=== PATIENT | female | born 1940 | race Caucasian/White ===

== ENCOUNTER → 2016-08-18 | Outpatient (CLI) | payer OTHER ==
[~2016-08-18] MED LIST: ALEN70TA2 PO; AMLO-110 PO; ASPI81TA28 PO; ATV2 PO; CHOL100010 PO; CLC100 PO; CPR500 PO; CYAN100020 PO; FERR325T5 PO; FURO40TA3 PO; GABA1CAP4 PO; INSUINJ8 SC; IPRASOL34 INH; LEVO100T PO; MRLP17X PO; OFLO0.3S EXT; OMEGCAP2 PO; OXGN; PHEN1CAP PO; ROPI0.25 PO; SIMV20TA5 PO; TOPI100T45 PO; TRAMTAB5 PO
[2016-08-18 13:20] LABS: HEMATOCRIT 36.1 % (37-47); MEAN CORPUSCULAR HEMOGLOBIN 33.9 pg (25-34); MEAN CORPUSCULAR HGB CONC 33.2 g/dl (32-36); MEAN PLATELET VOLUME 10.6 fL (7.4-10.4); PLATELET COUNT 188 K/uL (130-400); RED BLOOD COUNT 3.54 M/uL (4.2-5.4); WHITE BLOOD COUNT 7.94 K/uL (4.8-10.8)
[2016-08-18 13:32] LABS: URINE APPEARANCE CLEAR (CLEAR); URINE BILIRUBIN NEG (NEG); URINE COLOR YELLOW; URINE EPITHELIAL CELL AUTO >30 /lpf (0-5); URINE NITRITE NEG (NEG); URINE PH 5.5 (4.5-7.5); URINE SPECIFIC GRAVITY 1.015 (1.000-1.030); UROBILINOGEN NEG (NEG)
[2016-08-18 13:36] LABS: MANUAL MICROSCOPIC REQUIRED? NO; REVIEW REQ? NO
[2016-08-18 13:56] LABS: BLOOD UREA NITROGEN 21 mg/dl (7-18); BUN/CREATININE RATIO 21.2 (10-20); CALCIUM 9.2 mg/dl (8.5-10.1); CARBON DIOXIDE 31 mmol/L (21-32); CHLORIDE 107 mmol/L (98-107); GLUCOSE 142 mg/dl (70-99); POTASSIUM 4.2 mmol/L (3.5-5.1); SODIUM 145 mmol/L (136-145)
[2016-08-18 13:58] LABS: URINE PROTIEN/CREAT RATIO 0.8 (0-0.2); URINE TOTAL PROTEIN 71.6 mg/dl (0-11.9)
[2016-08-18 14:07] LABS: PHOSPHORUS 2.7 mg/dl (2.5-4.9); THYROID STIMULATING HORMONE 0.725 uIu/ml (0.300-4.500)
== END | disposition home or self-care (01) ==
LOC: C.LAB1850 11:41
PROVIDERS: ATTEND Internal Medicine Nephrology
DX: E03.9 Hypothyroidism, unspecified (principal); I12.9 Hypertensive chronic kidney disease with stage 1 through stage 4 chronic kidney disease, or unspecified chronic kidney disease; N18.3 Chronic kidney disease, stage 3 (moderate); D64.9 Anemia, unspecified; E55.9 Vitamin D deficiency, unspecified

== ENCOUNTER → 2016-10-05 | Outpatient (CLI) | payer OTHER ==
[2016-10-05 12:38] LABS: ESTIMATED AVERAGE GLUCOSE 160 mg/dl; HA1C FLAG Normal (Normal)
== END | disposition home or self-care (01) ==
LOC: C.LAB1850 11:31
PROVIDERS: ATTEND Nurse Practitioner Family
DX: E11.29 Type 2 diabetes mellitus with other diabetic kidney complication (principal)

== ENCOUNTER → 2017-04-07 | Outpatient (CLI) | payer OTHER ==
[2017-04-07 16:57] LABS: HEMATOCRIT 39.6 % (37-47); MEAN CELL VOLUME 103.1 fL (80-100); MEAN CORPUSCULAR HEMOGLOBIN 33.9 pg (25-34); MEAN CORPUSCULAR HGB CONC 32.8 g/dl (32-36); MEAN PLATELET VOLUME 10.7 fL (7.4-10.4); PLATELET COUNT 242 K/uL (130-400); RED BLOOD COUNT 3.84 M/uL (4.2-5.4); WHITE BLOOD COUNT 9.18 K/uL (4.8-10.8)
[2017-04-07 17:12] LABS: BLOOD UREA NITROGEN 25 mg/dl (7-18); CALCIUM 9.5 mg/dl (8.5-10.1); CARBON DIOXIDE 32 mmol/L (21-32); CHLORIDE 104 mmol/L (98-107); GLUCOSE 113 mg/dl (70-99); SODIUM 142 mmol/L (136-145)
[2017-04-07 17:27] LABS: BUN/CREATININE RATIO 20.5 (10-20); CHOLESTEROL 149 mg/dl (0-200); CHOLESTEROL/HDL RATIO 3.6; HDL CHOLESTEROL 41 mg/dl; LDL CHOLESTEROL CALCULATED 65 mg/dl; PHOSPHORUS 3.2 mg/dl (2.5-4.9); TRIGLYCERIDES 215 mg/dl (0-150); VERY LOW DENSITY LIPOPROT CALC 43 mg/dl
[2017-04-07 17:28] LABS: URINE PROTIEN/CREAT RATIO 0.8 (0-0.2); URINE TOTAL PROTEIN 13.3 mg/dl (0-11.9)
[2017-04-07 17:32] LABS: URINE APPEARANCE CLEAR (CLEAR); URINE BILIRUBIN NEG (NEG); URINE COLOR YELLOW; URINE NITRITE NEG (NEG); URINE SPECIFIC GRAVITY 1.015 (1.000-1.030); UROBILINOGEN NEG (NEG)
[2017-04-07 17:33] LABS: MANUAL MICROSCOPIC REQUIRED? NO; REVIEW REQ? NO
== END | disposition home or self-care (01) ==
LOC: C.LABBFT 12:12
PROVIDERS: ATTEND Internal Medicine Nephrology
DX: I10 Essential (primary) hypertension (principal); N18.3 Chronic kidney disease, stage 3 (moderate); D64.9 Anemia, unspecified; N25.81 Secondary hyperparathyroidism of renal origin; E55.9 Vitamin D deficiency, unspecified; E78.5 Hyperlipidemia, unspecified

== ENCOUNTER → 2017-04-15 | Outpatient (CLI) | payer OTHER ==
--- NOTE | 2017-04-15 15:41 | DIAGNOSTIC IMAGING REPORT ---
CHEST 2 VIEWS ROUTINE CLINICAL HISTORY: Chronic obstructive pulmonary disease. COMPARISON STUDY: Chest radiograph January 09, 2015. FINDINGS: Anterior cervical spine fusion is incidentally noted. No pneumothorax or pleural effusion is present. Marked enlargement of the cardiac silhouette is unchanged. There is no evidence of pulmonary edema. Left lower chest wall deformity is chronic. Apparent hazy bibasilar opacities are likely artifactual. There is no consolidation to suggest pneumonia. IMPRESSION: 1. No significant change in appearance of the chest. Stable cardiomegaly without evidence of pulmonary edema. 2. Study compromised by suboptimal penetration related to body habitus but no convincing evidence for pneumonia. Electronically signed by: Jayden Smith M.D. 04/15/2017 3:39 PM Dictated Date/Time: 04/15/2017 3:38 PM
== END | disposition home or self-care (01) ==
LOC: C.RAD1850 14:59
PROVIDERS: ATTEND Internal Medicine Pulmonary Disease
DX: J44.9 Chronic obstructive pulmonary disease, unspecified (principal)

== ENCOUNTER → 2017-08-03 | Outpatient (CLI) | payer OTHER ==
[~2017-08-03] MED LIST changes: -AMLO-110 PO; +AMLO5TAB3 PO; +GABA-1219 PO; -GABA1CAP4 PO; -PHEN1CAP PO; +PHEN30CA PO
[2017-08-03 12:30] LABS: HEMATOCRIT 38.2 % (37-47); HEMOGLOBIN 12.3 g/dL (12.0-16.0); MEAN CELL VOLUME 103.5 fL (80-100); MEAN CORPUSCULAR HEMOGLOBIN 33.3 pg (25-34); MEAN CORPUSCULAR HGB CONC 32.2 g/dl (32-36); MEAN PLATELET VOLUME 10.5 fL (7.4-10.4); PLATELET COUNT 206 K/uL (130-400); RED CELL DISTRIBUTION WIDTH CV 13.9 % (11.5-14.5); RED CELL DISTRIBUTION WIDTH SD 52.9 fL (36.4-46.3)
[2017-08-03 13:14] LABS: HEMOGLOBIN A1C 7.1 % (4.5-5.6)
[2017-08-03 14:46] LABS: ALBUMIN 3.2 gm/dl (3.4-5.0); BLOOD UREA NITROGEN 16 mg/dl (7-18); CALCIUM 8.8 mg/dl (8.5-10.1); CARBON DIOXIDE 33 mmol/L (21-32); CREATININE 1.13 mg/dl (0.60-1.20); GLUCOSE 127 mg/dl (70-99); POTASSIUM 4.2 mmol/L (3.5-5.1); SODIUM 140 mmol/L (136-145)
[2017-08-03 14:58] LABS: ALKALINE PHOSPHATASE 62 U/L (45-117); ALT/SGPT 24 U/L (12-78); AST/SGOT 17 U/L (15-37); CHOLESTEROL 141 mg/dl (0-200); LDL CHOLESTEROL CALCULATED 69 mg/dl
== END | disposition home or self-care (01) ==
LOC: C.LABBFT 09:00
PROVIDERS: ATTEND Internal Medicine
DX: I10 Essential (primary) hypertension (principal); E03.9 Hypothyroidism, unspecified; D64.9 Anemia, unspecified; E11.29 Type 2 diabetes mellitus with other diabetic kidney complication

== ENCOUNTER → 2017-10-04 | Outpatient (CLI) | payer OTHER ==
[~2017-10-04] MED LIST changes: +AMLO-110 PO; -AMLO5TAB3 PO
[2017-10-04 12:24] LABS: HEMATOCRIT 38.9 % (37-47); MEAN CELL VOLUME 101.8 fL (80-100); MEAN CORPUSCULAR HGB CONC 33.4 g/dl (32-36); MEAN PLATELET VOLUME 10.9 fL (7.4-10.4); PLATELET COUNT 203 K/uL (130-400); RED CELL DISTRIBUTION WIDTH CV 13.4 % (11.5-14.5); RED CELL DISTRIBUTION WIDTH SD 50.1 fL (36.4-46.3); WHITE BLOOD COUNT 7.97 K/uL (4.8-10.8)
[2017-10-04 12:47] LABS: HEMOGLOBIN A1C 7.5 % (4.5-5.6)
[2017-10-04 17:51] LABS: ALBUMIN 3.4 gm/dl (3.4-5.0); BLOOD UREA NITROGEN 25 mg/dl (7-18); CALCIUM 9.3 mg/dl (8.5-10.1); CARBON DIOXIDE 33 mmol/L (21-32); CREATININE 1.09 mg/dl (0.60-1.20); GLUCOSE 156 mg/dl (70-99); POTASSIUM 4.2 mmol/L (3.5-5.1); SODIUM 139 mmol/L (136-145)
[2017-10-04 18:01] LABS: PHOSPHORUS 2.5 mg/dl (2.5-4.9)
== END | disposition home or self-care (01) ==
LOC: C.LABBFT 10:39
PROVIDERS: ATTEND Internal Medicine Nephrology
DX: E11.49 Type 2 diabetes mellitus with other diabetic neurological complication (principal); I12.9 Hypertensive chronic kidney disease with stage 1 through stage 4 chronic kidney disease, or unspecified chronic kidney disease; N18.3 Chronic kidney disease, stage 3 (moderate); N25.81 Secondary hyperparathyroidism of renal origin; D64.9 Anemia, unspecified; E55.9 Vitamin D deficiency, unspecified

== ENCOUNTER → 2018-03-17 | Outpatient (CLI) | payer OTHER ==
[~2018-03-17] MED LIST changes: -AMLO-110 PO; +AMLO5TAB3 PO
[2018-03-17 12:30] LABS: HEMATOCRIT 37.3 % (37-47); HEMOGLOBIN 12.4 g/dL (12.0-16.0); MEAN CELL VOLUME 102.8 fL (80-100); MEAN CORPUSCULAR HEMOGLOBIN 34.2 pg (25-34); MEAN CORPUSCULAR HGB CONC 33.2 g/dl (32-36); MEAN PLATELET VOLUME 11.2 fL (7.4-10.4); PLATELET COUNT 208 K/uL (130-400); RED CELL DISTRIBUTION WIDTH CV 13.8 % (11.5-14.5); RED CELL DISTRIBUTION WIDTH SD 52.1 fL (36.4-46.3); WHITE BLOOD COUNT 7.48 K/uL (4.8-10.8)
[2018-03-17 12:42] LABS: ALBUMIN 3.1 gm/dl (3.4-5.0); BLOOD UREA NITROGEN 21 mg/dl (7-18); CALCIUM 8.5 mg/dl (8.5-10.1); CARBON DIOXIDE 30 mmol/L (21-32); CREATININE 1.16 mg/dl (0.60-1.20); GLUCOSE 153 mg/dl (70-99); PHOSPHORUS 2.9 mg/dl (2.5-4.9); SODIUM 141 mmol/L (136-145)
== END | disposition home or self-care (01) ==
LOC: C.LABBFT 09:59
PROVIDERS: ATTEND Internal Medicine Nephrology
DX: I12.9 Hypertensive chronic kidney disease with stage 1 through stage 4 chronic kidney disease, or unspecified chronic kidney disease (principal); N18.3 Chronic kidney disease, stage 3 (moderate); N25.81 Secondary hyperparathyroidism of renal origin; D64.9 Anemia, unspecified; E11.21 Type 2 diabetes mellitus with diabetic nephropathy; E55.9 Vitamin D deficiency, unspecified

== ENCOUNTER 2023-09-07 11:42 | Inpatient (IN) ==
[2023-09-07 12:55] LABS: Alanine Aminotransferase 9 U/L (7-52); Albumin Globulin Ratio 1.1 (0.9-2); Albumin Level 3.4 gm/dl (3.4-5.0); Alkaline Phosphatase 56 U/L (34-104); Anion Gap 4 (3-11); Aspartate Aminotransferase 11 U/L (13-39); BUN Creatinine Ratio 26.3 (10-20); Bilirubin,Total 0.5 mg/dl (0.2-1.0); Blood Urea Nitrogen 50 mg/dl (6-23); Calcium 8.6 mg/dl (8.6-10.3); Carbon Dioxide 36 mmol/L (21-32); Chloride 103 mmol/L (98-107); Est GFR (Non-African American) 24.1 ml/min; Globulin 3.1 gm/dl (2.5-4.0); Glucose 124 mg/dl (70-99(Fasting)); Lipase 17 U/L (11-82); Potassium 4.9 mmol/L (3.5-5.1); Sodium 143 mmol/L (136-145); Total Protein 6.5 gm/dl (6.0-8.3)
[2023-09-07 12:59] LABS: Hematocrit (blood only) 23.6 % (37.0-47.0); Hemoglobin 7.4 g/dl (12.0-16.0); Mean Corpuscular Hemoglobin 36.1 pg (25.0-34.0); Mean Corpuscular Hgb Conc 31.4 g/dL (32.0-36.0); Mean Corpuscular Volume 115.1 fL (80.0-100.0); Mean Platelet Volume 10.6 fL (9.4-12.4); Nucleated RBC # (auto) 0.03 K/uL (0.00-0.12); Nucleated RBC % (auto) 1.6 %; Platelet Count 86 K/uL (130-400); RDW Coefficient of Variation 15.3 % (11.5-14.5); RDW Standard Deviation 65.1 fL (36.4-46.3); Red Blood Count 2.05 M/uL (4.20-5.40); White Blood Count 1.91 K/ul (4.8-10.8)
[2023-09-07 14:01] LABS: ALC (manual) 0.74 K/uL (1.2-3.4); ANC (manual) 0.92 K/uL (1.4-6.5); Blast # (manual) 0.04 K/uL (0-0); Blast Cells % (manual) 2 %; Lymphocytes # (manual) 0.74 K/uL (1.2-3.4); Lymphocytes % (manual) 39 %; Macrocytosis Present; Monocytes # (manual) 0.21 K/uL (0.11-0.59); Monocytes % (manual) 11 %; Neutrophils # (manual) 0.92 K/uL (1.40-6.50); Neutrophils % (manual) 48 %; Polychromasia 1+; Tear Drop Cells 1+
--- NOTE | 2023-09-07 14:16 | Emergency Department Note ---
History of Present Illness General Chief complaint: Flank Pain Stated complaint: PAIN IN BOTH SIDES Time Seen by Provider: 09/07/23 14:00 History of Present Illness Maximum Pain Intensity: 6 83-year-old female presents emergency department with a 1 day history of bilateral upper abdominal pain. Patient of note was seen her primary care physician's office yesterday and refused to get blood work. According to daughters at bedside the patient is in denial of her health issues. Patient reportedly had been bleeding rectally over the past 2 weeks. Patient denies any vomiting of blood. Patient is on Eliquis she is also using oxygen [id number]. Patient denies any chest pain denies shortness of breath. Patient denies nausea vomiting diarrhea. There are no other complaints except for abdominal pain and rectal bleeding Home Medications Medication Instructions Recorded Confirmed Type Oxygen Home #1 ea 03/05/19 09/05/23 History lancets 30 gauge (OneTouch Delica #25 ea 03/05/19 09/05/23 History Lancets) CPAP Machine #1 ea 11/20/19 09/05/23 Rx blood sugar diagnostic (SwiftypeTouch #100 ea 05/06/22 09/05/23 Rx Verio test strips) blood-glucose meter (OneTouch #1 ea 05/06/22 09/05/23 Rx Verio Meter) insulin glargine 100 unit/mL (3 10 unit (0.1 mL) subcut QPM 90 08/11/22 09/07/23 Rx mL) subcutaneous pen (Lantus days #9 mL Solostar U-100 Insulin) apixaban 2.5 mg tablet (Eliquis) 2.5 mg PO BID #60 tabs 11/24/22 09/07/23 Rx levothyroxine 88 mcg tablet 88 mcg PO 6XWK #90 tabs 11/24/22 09/07/23 Rx pramipexole 0.5 mg tablet 0.5 mg PO .COMPLEX 30 days #270 01/12/23 09/07/23 Rx tabs ipratropium 0.5 mg-albuterol 3 mg 3 ml inhalation Q4H PRN wheezing 03/18/23 09/07/23 Rx (2.5 mg base)/3 mL nebulization #540 mL soln gabapentin 300 mg capsule 300 mg PO HS #180 caps 04/22/23 09/07/23 Rx metoprolol succinate 200 mg 100 mg (1/2 x 200 mg) PO DAILY #30 04/22/23 09/07/23 Rx tablet,extended release 24 hr tabs furosemide 40 mg tablet (Lasix) 40 mg PO DAILY #135 tabs 05/06/23 09/07/23 Rx lisinopril 5 mg tablet (Zestril) 5 mg PO DAILY #90 tabs 05/09/23 09/07/23 Rx acetaminophen 500 mg oral powder 500 mg PO Q6H PRN PAIN/FEVER 06/20/23 09/07/23 History packet (Tylenol Extra Strength) metoprolol succinate 50 mg 50 mg PO DAILY #90 tabs 06/20/23 09/07/23 Rx tablet,extended release 24 hr lorazepam 1 mg tablet 1 mg PO HS PRN Sleep #30 tabs 06/28/23 09/07/23 Rx pen needle, diabetic 31 gauge x #100 ea 07/06/23 09/05/23 Rx 5/16" (Lite Touch Insulin Pen [place]) albuterol sulfate 90 mcg/actuation 2 puff inhalation Q6H PRN 08/04/23 09/07/23 Rx aerosol inhaler shortness of breath or wheezing #8.5 grams umeclidinium 62.5 mcg-vilanterol 1 inh inhalation DAILY #60 ea 08/22/23 09/07/23 Rx 25 mcg/actuation powdr for inhalation (Anoro Ellipta) Allergies Allergy/AdvReac Type Severity Reaction Status Date / Time sacubitril [From Entresto] AdvReac Severe hyperkalemi Verified 09/07/23 15:12 a valsartan [From Entresto] AdvReac Severe hyperkalemi Verified 09/07/23 15:12 a Past Med/Surg History Medical History Morbid obesity with BMI of 40.0-44.9, adult Gout Mild cognitive impairment Atrial fibrillation Chronic systolic CHF (congestive heart failure) Cardiomyopathy Anemia Anxiety Chronic kidney disease, stage 3 (moderate) Chronic obstructive pulmonary disease Depression Diabetic peripheral neuropathy Diabetic retinopathy Dyslipidemia Generalized osteoarthritis of multiple sites Hypertension Hypothyroidism Obesity hypoventilation syndrome Obstructive sleep apnea of adult Osteoporosis Pulmonary hypertension Restless legs syndrome Restrictive lung disease Secondary hyperparathyroidism Tinnitus Type 2 diabetes mellitus Vitamin B12 deficiency Vitamin D deficiency Surgical History H/O cervical spine surgery Late H/O hysterectomy with oophorectomy TABHSO secondary heavy bleeding. Family History Father Alzheimer disease Sister Brain tumor Mother Myocardial infarction AAA (abdominal aortic aneurysm) Brother Myocardial infarction T2DM (type 2 diabetes mellitus) Denies family history of Ovarian cancer Prostate cancer Breast cancer Colorectal cancer Social History Smoking Status: Former smoker Tobacco Type: Cigarettes Age Started Using Tobacco: 14; Age Quit Using Tobacco: 59; packs per day: 0.5; Cigarettes Per Day: 10; Second Hand Exposure: Yes (her family smokes around her ); Do You Dip or Chew Tobacco: No; Hx Alcohol Use: No Hx Substance Use: No Preferred Language: Turkish Communication Ability: Effective Visual Impairment: No Limitations Hearing Ability: Normal Grey Inspector Required: No Beliefs That Will Affect Care: None marital status: Current Living Situation: Spouse current occupational status: retired current occupation: she worked in housekeeping at the hospital Feels Safe at Home: Yes Childhood Exposure to Second-Hand Smoke: Yes Diet: regular Dental Care, Regularly: No Physical Activity Frequency: Does not Exercise Seatbelt Use: never Sunscreen Use: No Assistive Devices: Oxygen - Continuous ([facility]) and Walker Review of Systems A total of 10 systems reviewed and were otherwise negative Gastrointestinal: + abdominal pain and + blood in stools Physical Exam Vital Signs Vital Signs - 24 hr 09/07/23 11:51 09/07/23 14:54 09/07/23 15:49 Temperature 36.5 C Temperature Source Temporal Artery Scan Pulse Rate 90 79 Pulse Rate [Left Finger] 74 Respiratory Rate 18 22 Blood Pressure 117/48 L Blood Pressure [Left Arm] 101/50 L Blood Pressure Mean 71 Blood Pressure Mean [Left Arm] 67 Blood Pressure Position [Left Arm] Sitting Pulse Oximetry 94 100 Oxygen Delivery Method Nasal Cannula Nasal Cannula Oxygen Flow Rate 2.5 3 Sepsis New/Unexplained Change in Mental Status No Sepsis Action Taken by Nursing No Action Required 09/07/23 16:00 Temperature Temperature Source Pulse Rate Pulse Rate [Left Finger] 84 Respiratory Rate 18 Blood Pressure Blood Pressure [Left Arm] 114/77 Blood Pressure Mean Blood Pressure Mean [Left Arm] 89 Blood Pressure Position [Left Arm] Pulse Oximetry 96 Oxygen Delivery Method Room Air Oxygen Flow Rate Sepsis New/Unexplained Change in Mental Status Sepsis Action Taken by Nursing GENERAL: Patient is awake alert in no acute distress patient is resting comfortably and showing no signs of anxiety EYES: The conjunctivae are clear. The pupils are round and reactive. EARS, NOSE, MOUTH AND THROAT: The nose is without any evidence of any deformity. Mucous membranes are moist. Tongue is midline. NECK: The neck is nontender and supple. RESPIRATORY: Normal respiratory effort; rhonchi bilaterally CARDIOVASCULAR: Irregularly irregular rate and rhythm noted there no murmurs rubs or gallops normal S1 normal S2. GASTROINTESTINAL: The abdomen is soft. Abdomen is nontender. No rebound rigidity or guarding RECTAL; rectal exam is heme-negative brown stool BACK: No midline tenderness or or step-off noted range of motion in flexion extension as well as rotation no signs of muscle spasm noted MUSCULOSKELETAL/EXTREMITIES: There is no evidence of gross deformity full range of motion is noted in the hips and shoulders. SKIN: There is no obvious evidence of any rash. There are no petechiae, pallor or cyanosis noted. There is a bandaged right ankle wound NEUROLOGIC: Patient is awake alert and oriented x2 strength is symmetric Course Reevaluation(s) Reevaluation #1: Patient is resting in no distress on my repeat exam. I discussed evaluation with the patient the patient's daughter who is at bedside Time: 15:29 Reevaluation #2: Patient has no current rectal bleeding on my evaluation, patient is hemodynamically stable Time: 15:30 Consultations Consultation #1: Case was discussed with the [facility] hospitalist for admission Time: 15:29 Administered Medications Ceftriaxone Sodium 2,000 mg/ (Dextrose) 50 mls @ 100 mls/hr IV Q24H [facility]; Protocol Stop: 09/17/23 15:29 Last Infusion: 09/07/23 16:22 Dose: Infused Documented By: Admin: 09/07/23 15:51 Dose: 100 mls/hr Documented By: MISAEL Discontinued Medications Metronidazole (Flagyl) 500 mg in 100 mls @ 100 mls/hr IV NOW [facility]; Protocol Stop: 09/07/23 16:31 Last Infusion: 09/07/23 16:51 Dose: Infused Documented By: Admin: 02/07/24 15:50 Dose: 100 mls/hr Documented By: MISAEL Medical Decision Making Medical Records Attestation: I reviewed the patient's medical records. Home Medications Current Medication List: was personally reviewed by Laboratory Data Attestation: I reviewed the patient's lab results. Labs interpreted by me patient is pancytopenic, patient has an elevated creatinine 09/07/23 12:10 09/07/23 12:10 Lab Results 09/07/23 09/07/23 09/07/23 Range/Units 12:10 15:13 15:16 WBC 1.91 L (4.8-10.8) K/ul RBC 2.05 L (4.20-5.40) M/uL Hgb 7.4 L (12.0-16.0) g/dl Hct 23.6 L (37.0-47.0) % MCV 115.1 H (80.0-100.0) fL MCH 36.1 H (25.0-34.0) pg MCHC 31.4 L (32.0-36.0) g/dL RDW Std Deviation 65.1 H (36.4-46.3) fL RDW Coeff of Vanessa 15.3 H (11.5-14.5) % Plt Count 86 L (130-400) K/uL MPV 10.6 (9.4-12.4) fL Reticulocyte % (Auto) (0.50-2.00) % Reticulocyte # (0.020-0.100) 10^6/uL Absolute Nucleated RBC 0.03 (0.00-0.12) K/uL Nucleated RBC % (auto) 1.6 % Neutrophils % (Manual) 48 % Lymphocytes % (Manual) 39 % Monocytes % (Manual) 11 % Blast Cells % (Manual) 2 % Neutrophils # (Manual) 0.92 L (1.40-6.50) K/uL Total Absolute Neuts 0.92 L* (1.4-6.5) K/uL Lymphocytes # (Manual) 0.74 L (1.2-3.4) K/uL Total Abs Lymphocytes 0.74 L (1.2-3.4) K/uL Monocytes # (Manual) 0.21 (0.11-0.59) K/uL Blast Cells # (Man) 0.04 H (0-0) K/uL Blood Smear Review Polychromasia 1+ Macrocytosis Present Tear Drop Cells 1+ Peripher Smr Path Cons ESR (0-30) mm/hr PT Cancelled 11.9 INR Cancelled 1.1 APTT 24 (21-31) Seconds PTT Ratio 0.9 Sodium 143 (136-145) mmol/L Potassium 4.9 (3.5-5.1) mmol/L Chloride 103 (98-107) mmol/L Carbon Dioxide 36 H (21-32) mmol/L Anion Gap 4 (3-11) BUN 50 H (6-23) mg/dl Creatinine 1.90 H (0.6-1.2) mg/dl Est Cr Clr Drug Dosing Not Reportable Est GFR ( Amer) 28.0 ml/min Est GFR (Non-Af Amer) 24.1 ml/min BUN/Creatinine Ratio 26.3 H (10-20) Glucose 124 H (70-99(Fasting)) mg/dl Lactate 0.6 (0.4-2.0) mmol/L Calcium 8.6 (8.6-10.3) mg/dl Magnesium (1.7-2.4) mg/dl Iron (35-150) mcg/dl TIBC (250-450) mcg/dl Unsaturated IBC (155-355) mcg/dl Transferrin % Sat (15-50) % Total Bilirubin 0.5 (0.2-1.0) mg/dl AST 11 L (13-39) U/L ALT 9 (7-52) U/L Alkaline Phosphatase 56 (34-104) U/L Troponin I High Sens (0-14) pg/ml C-Reactive Protein (0-0.5) mg/dl B-Natriuretic Peptide (0-100) pg/ml Total Protein 6.5 (6.0-8.3) gm/dl Albumin 3.4 (3.4-5.0) gm/dl Globulin 3.1 (2.5-4.0) gm/dl Albumin/Globulin Ratio 1.1 (0.9-2) Lipase 17 (11-82) U/L Vitamin B12 (180-914) pg/ml Folate (>5.38) ng/ml Procalcitonin < 0.05 (0-0.5) ng/ml TSH (0.300-4.500) uIu/ml Blood Type O Negative Antibody Screen NEGATIVE 09/07/23 09/07/23 09/07/23 Range/Units 15:23 15:25 16:03 WBC (4.8-10.8) K/ul RBC (4.20-5.40) M/uL Hgb (12.0-16.0) g/dl Hct (37.0-47.0) % MCV (80.0-100.0) fL MCH (25.0-34.0) pg MCHC (32.0-36.0) g/dL RDW Std Deviation (36.4-46.3) fL RDW Coeff of Vanessa (11.5-14.5) % Plt Count (130-400) K/uL MPV (9.4-12.4) fL Reticulocyte % (Auto) 1.72 (0.50-2.00) % Reticulocyte # 0.040 (0.020-0.100) 10^6/uL Absolute Nucleated RBC (0.00-0.12) K/uL Nucleated RBC % (auto) % Neutrophils % (Manual) % Lymphocytes % (Manual) % Monocytes % (Manual) % Blast Cells % (Manual) % Neutrophils # (Manual) (1.40-6.50) K/uL Total Absolute Neuts (1.4-6.5) K/uL Lymphocytes # (Manual) (1.2-3.4) K/uL Total Abs Lymphocytes (1.2-3.4) K/uL Monocytes # (Manual) (0.11-0.59) K/uL Blast Cells # (Man) (0-0) K/uL Blood Smear Review Polychromasia Macrocytosis Tear Drop Cells Peripher Smr Path Cons Cancelled ESR 35 H (0-30) mm/hr PT INR APTT (21-31) Seconds PTT Ratio Sodium (136-145) mmol/L Potassium (3.5-5.1) mmol/L Chloride (98-107) mmol/L Carbon Dioxide (21-32) mmol/L Anion Gap (3-11) BUN (6-23) mg/dl Creatinine (0.6-1.2) mg/dl Est Cr Clr Drug Dosing Est GFR ( Amer) ml/min Est GFR (Non-Af Amer) ml/min BUN/Creatinine Ratio (10-20) Glucose (70-99(Fasting)) mg/dl Lactate (0.4-2.0) mmol/L Calcium (8.6-10.3) mg/dl Magnesium 2.3 (1.7-2.4) mg/dl Iron 51 (35-150) mcg/dl TIBC 221 L (250-450) mcg/dl Unsaturated IBC 170 (155-355) mcg/dl Transferrin % Sat 23 (15-50) % Total Bilirubin (0.2-1.0) mg/dl AST (13-39) U/L ALT (7-52) U/L Alkaline Phosphatase (34-104) U/L Troponin I High Sens 12.6 (0-14) pg/ml C-Reactive Protein 6.37 H (0-0.5) mg/dl B-Natriuretic Peptide 566 H (0-100) pg/ml Total Protein (6.0-8.3) gm/dl Albumin (3.4-5.0) gm/dl Globulin (2.5-4.0) gm/dl Albumin/Globulin Ratio (0.9-2) Lipase (11-82) U/L Vitamin B12 217 (180-914) pg/ml Folate 14.97 (>5.38) ng/ml Procalcitonin (0-0.5) ng/ml TSH 3.461 (0.300-4.500) uIu/ml Blood Type Antibody Screen Imaging Data Attestation: I personally reviewed and interpreted this imaging study as follows: My Impression: Chest x-ray interpreted by me mild cardiomegaly questionable left lower lobe effusion Radiologist's Impression: Abdomen/Pelvis CT 09/07/23 13:[address] WITHOUT CONTRAST CT DOSE: 1240.29 mGy.cm HISTORY: Acute lower abdominal pain with anemia Lower abd pain, anemia, Elevated Creat TECHNIQUE: Multiaxial CT images of the abdomen and pelvis were performed without contrast. A dose lowering technique was utilized adhering to the principles of ALARA. COMPARISON STUDY: 01/09/2015 FINDINGS: Marked cardiomegaly. Pericardial effusion measures up to 2.4 cm, increased in size from prior. Extensive coronary artery calcifications. Small right and trace left pleural effusions. Bibasilar opacities favor atelectasis/scarring. Limited study secondary to respiratory motion, approximately positioning and lack of contrast. Unremarkable spleen, pancreas and right adrenal gland. 1.8 cm left adrenal adenoma. Mildly contracted gallbladder with stone present within the gallbladder neck. Mild pericholecystic stranding. No biliary ductal dilation. Atrophy of the right greater left kidneys with bilateral cortical thinning. 5 mm calcification of the inferior pole right kidney. No ureteral calculi or hydronephrosis identified. Unremarkable urinary bladder with mild wall thickening. Hysterectomy with pelvic floor relaxation. Cystocele and rectocele. Atherosclerosis of aorta. No lymphadenopathy. No bowel obstruction. There is mild nonspecific rectal wall thickening with perirectal stranding. Stents of colonic diverticulosis. No acute diverticulitis. Normal appendix. Small fat filled umbilical hernia. There is a large pannus. Degenerative changes of the spine, pelvis and hips. Multilevel central canal stenosis. IMPRESSION: 1. No bowel obstruction or pneumoperitoneum. 2. There is mild nonspecific rectal wall thickening with perirectal stranding. Correlate clinically to exclude a mild nonspecific proctitis. 3. Cholelithiasis without definite CT evidence of acute cholecystitis. 4. 4 mm calcification of the right kidney. No hydronephrosis. 5. Cardiomegaly with moderate-sized pericardial effusion. Trace left and small right pleural effusions. 6. Additional findings as above. ACT 112: Negative or not required by law. The above report was generated using voice recognition software. It may contain grammatical, syntax or spelling errors. Electronically signed by: Joe Delgadillo M.D. 09/07/2023 2:42 PM Chest X-Ray 09/07/23 14:12 XR chest 1V portable CLINICAL HISTORY: GI bleed. COMPARISON STUDY: Chest radiograph April 15, 2023. Chest CT April 18, 2023. FINDINGS: Enlargement of the cardiac silhouette is similar to prior exam. There is no pneumothorax. Small right and trace left pleural effusions are present. There is no evidence for pulmonary edema. There is no definite consolidation to suggest pneumonia. Right basilar opacity favors atelectasis. Postoperative findings within the cervical spine are incidentally noted. IMPRESSION: 1. Stable enlargement of the cardiac silhouette. No evidence for pulmonary edema. 2. Small right and trace left pleural effusions. Right basilar opacity favors atelectasis. ACT 112: Negative or not required by law. Electronically signed by: Jayden Smith M.D. 09/07/2023 2:59 PM ECG Data Attestation: I personally reviewed and interpreted this ECG as follows: MDM Narrative Medical decision making differential diagnosis includes GI bleed diverticular bleed metabolic derangement dehydration electrolyte abnormality sepsis occult cancer Plan is to check labs, CT abdomen pelvis, type and screen, labs were started and the provider in triage process prior to my evaluation of the patient Family at bedside, the patient's daughter has provided me history of her being in denial of her medical conditions. Reportedly her is currently in our hospital and is being transferred to a long-term care facility Patient has pancytopenia patient's CT of the abdomen pelvis showed a moderate pericardial effusion. Patient is on oxygen but is in no respiratory distress. Patient may have an occult cancer. Patient has no current evidence of sepsis. The case was discussed with the family at bedside as well as the [facility] hospitalist for admission Impression & Plan Pancytopenia, Pericardial effusion, Abdominal pain, Pleural effusion Discharge Plan Visit Data Chief Complaint: Flank Pain Stated Complaint: PAIN IN BOTH SIDES ED Provider: Walker Escalante Discharge Problem: Pancytopenia, Pericardial effusion, Abdominal pain, Pleural effusion Patient Disposition: Admitted As Inpatient Forms Stand Alone Forms: My [facility] Prescriptions Prescriptions: No Action (DME) CPAP Machine Mis See Rx Instructions .ROUTE .MEDSUPPLY Qty: 1 0RF Rx Instructions: CPAP 7CM. HEATED HUMIDITY. CPAP SUPPLIES NEEDED. VALERIO 99. [facility] (DME) OneTouch Verio test strips Strip See Rx Instructions .ROUTE .MEDSUPPLY Qty: 100 2RF Rx Instructions: Test 2 times daily and as needed (DME) blood-glucose meter [OneTouch Verio Meter] Misc See Rx Instructions .ROUTE .MEDSUPPLY Qty: 1 0RF Rx Instructions: Test blood sugars 2 times daily insulin glargine [Lantus Solostar U-100 Insulin] 100 unit/mL (3 mL) insulin pen 10 unit subcut QPM 90 Days Qty: 9 3RF Eliquis 2.5 mg tablet 2.5 mg PO BID Qty: 60 11RF levothyroxine 88 mcg tablet 88 mcg PO 6XWK Qty: 90 3RF Rx Instructions: TAKE ONE TABLET BY MOUTH EVERY DAY EXCEPT TUESDAY. pramipexole 0.5 mg tablet 0.5 mg PO .COMPLEX 30 Days Qty: 270 3RF Rx Instructions: 0.5 mg PO TAKE 1 TAB IN THE AFTERNOON AND 2 TABS 2 HOURS BEFORE BEDTIME; ipratropium-albuterol 0.5 mg-3 mg(2.5 mg base)/3 mL solution for nebulization 3 ml inhalation Q4H PRN (Reason: wheezing) Qty: 540 0RF metoprolol succinate 200 mg tablet extended release 24 hr 100 mg PO DAILY Qty: 30 11RF Rx Instructions: TOTAL DOSE 150 MG--TAKES WITH 50 MG TAB. lisinopril [Zestril] 5 mg tablet 5 mg PO DAILY Qty: 90 1RF lorazepam 1 mg tablet 1 mg PO HS PRN (Reason: Sleep) Qty: 30 1RF Rx Instructions: TAKE 1 TABLET BY MOUTH AT BEDTIME NEEDED SLEEP (DME) pen needle, diabetic [Lite Touch Insulin Pen [place]] 31 gauge x 5/16" needle See Dose Instructions .ROUTE .MEDSUPPLY Qty: 100 11RF Rx Instructions: for use with Humulin pen 2 times a day Anoro Ellipta 62.5-25 mcg/actuation blister with device 1 inh inhalation DAILY Qty: 60 5RF (DME) Oxygen Home Liters Per Minute See Dose Instructions .ROUTE .MEDSUPPLY Qty: 1 Rx Instructions: 2 LPM at rest and 3 LPM with ambulation and sleep (DME) lancets [OneTouch Delica Lancets] 30 gauge misc See Dose Instructions .ROUTE .MEDSUPPLY Qty: 25 Rx Instructions: Test 3 times per day Tylenol Extra Strength 500 mg powder in packet 500 mg PO Q6H PRN (Reason: PAIN/FEVER) metoprolol succinate 50 mg tablet extended release 24 hr 50 mg PO DAILY Qty: 90 3RF Rx Instructions: (Take with 100 mg for a total of 150 mg daily) albuterol sulfate 90 mcg/actuation HFA aerosol inhaler 2 puff inhalation Q6H PRN (Reason: shortness of breath or wheezing) Qty: 8.5 5RF furosemide [Lasix] 40 mg tablet 40 mg PO DAILY Qty: 135 3RF gabapentin 300 mg capsule 300 mg PO HS Qty: 180 3RF Referrals Referrals: Eboni Smith MD [Primary Care Provider] -
--- NOTE | 2023-09-07 14:43 | CT Scan Report ---
ABDOMEN AND PELVIS CT WITHOUT CONTRAST CT DOSE: 1240.29 mGy.cm HISTORY: Acute lower abdominal pain with anemia Lower abd pain, anemia, Elevated Creat TECHNIQUE: Multiaxial CT images of the abdomen and pelvis were performed without contrast. A dose lo wering technique was utilized adhering to the principles of ALARA. COMPARISON STUDY: 01/09/2015 FINDINGS: Marked cardiomegaly. Pericardial effusion measures up to 2.4 cm, increased in size from barbara or. Extensive coronary artery calcifications. Small right and trace left pleural effusions. Bibasilar opacities favor atelectasis/scarring. Limited study secondary to respiratory motion, approximately p ositioning and lack of contrast. Unremarkable spleen, pancreas and right adrenal gland. 1.8 cm left adrenal adenoma. Mildly contracted gallbladder with stone present within the gallbladder neck. Mild pericholecystic stranding. No bilia ry ductal dilation. Atrophy of the right greater left kidneys with bilateral cortical thinning. 5 mm calcification of the inferior pole right kidney. No ureteral calculi or hydronephrosis identified. Un remarkable urinary bladder with mild wall thickening. Hysterectomy with pelvic floor relaxation. Cyst ocele and rectocele. Atherosclerosis of aorta. No lymphadenopathy. No bowel obstruction. There is mild nonspecific rectal wall thickening with perirectal stranding. Ross nts of colonic diverticulosis. No acute diverticulitis. Normal appendix. Small fat filled umbilical h ernia. There is a large pannus. Degenerative changes of the spine, pelvis and hips. Multilevel centra l canal stenosis. IMPRESSION: 1. No bowel obstruction or pneumoperitoneum. 2. There is mild nonspecific rectal wall thickening with perirectal stranding. Correlate clinically t o exclude a mild nonspecific proctitis. 3. Cholelithiasis without definite CT evidence of acute cholecystitis. 4. 4 mm calcification of the right kidney. No hydronephrosis. 5. Cardiomegaly with moderate-sized pericardial effusion. Trace left and small right pleural effusion s. 6. Additional findings as above. ACT 112: Negative or not required by law. The above report was generated using voice recognition software. It may contain grammatical, syntax o r spelling errors. Electronically signed by: Joe Delgadillo M.D. 09/07/2023 2:42 PM
--- NOTE | 2023-09-07 15:00 | XRay Report ---
XR chest 1V portable CLINICAL HISTORY: GI bleed. COMPARISON STUDY: Chest radiograph April 15, 2023. Chest CT April 18, 2023. FINDINGS: Enlargement of the cardiac silhouette is similar to prior exam. There is no pneumothorax. S mall right and trace left pleural effusions are present. There is no evidence for pulmonary edema. Th ere is no definite consolidation to suggest pneumonia. Right basilar opacity favors atelectasis. Post operative findings within the cervical spine are incidentally noted. IMPRESSION: 1. Stable enlargement of the cardiac silhouette. No evidence for pulmonary edema. 2. Small right and trace left pleural effusions. Right basilar opacity favors atelectasis. ACT 112: Negative or not required by law. Electronically signed by: Jayden Smith M.D. 09/07/2023 2:59 PM
[2023-09-07] MEDS: metroNIDAZOLE 500 MG/100 ML BAG IV STA (15:50)
[2023-09-07] MEDS: cefTRIAXone SODIUM 2,000 MG in DEXTROSE 5 % MINI-B 50 ML IV SCH (15:51)
--- NOTE | 2023-09-07 15:57 | History & Physical Report ---
Date of Service September 07, 2023 Assessment & Plan (1) Proctitis: Plan: Suspect this is the cause of her abdominal pain Due to concurrent pancytopenia will cover for infective etiology with ceftriaxone and metronidazole Stool PCR/c. diff PCR/CRP/ESR/procalcitonin/blood cultures Consult gastroenterology (2) Pancytopenia: Plan: Unclear cause on admission - suspect from anemia from acute blood loss from rectal bleeding although this does not adequately explain full pancytopenia B12 (notably < 400 in April), folate, ferritin, iron studies, retic count, peripheral smear Consult hematology H&H q6h, Transfuse < 7 (3) Rectal bleeding: Plan: FOB negaitve with brown stool in the ER. Occurring intermittently ?related to proctitis. (4) Abdominal pain: Plan: ?related to proctitis. No alterative cause found on CT Continue to monitor (5) Pericardial effusion: Plan: Known diagnosis. Repeat TTE limited order to check for stability. (6) Pleural effusion: Plan: Suspected from CHF Euvolemic Continue usual Lasix dosing (7) Permanent atrial fibrillation: Plan: Hold apixaban due to anemia with recent rectal bleeding Continue metoprolol for rate control (8) Obstructive sleep apnea of adult: Plan: CPAP HS (9) Type 2 diabetes mellitus: Plan: HbA1C 6.8 in April, will repeat with a.m. labs Home medications Lantus 10 units HS While NPO will hold basal dosing for correction factor NovoLog alone and add basal dosing back as needed (10) Restless legs syndrome: Plan: Continue pramipexole (11) Chronic systolic CHF (congestive heart failure): Plan: Euvolemic Continue routine Lasix dosing (12) Chronic respiratory failure with hypoxia: Plan: Baseline 2-3 LPM O2 Aim O2 > 90% (13) Acute blood loss anemia: Plan VTE Prophylaxis - deferred due to anemia, rectal bleeding Diet - clear liquid, T2DM, low Na, NPO after midnight pending GI consult Disposition - admit ot med/tele Admission and Anticipated Discharge Date Admission Date: Sep 07, 2023 History of Present Illness Chief Complaint: Abdominal pain Primary Care Provider: Eboni Smith MD Valeri Davis is an 83-year-old female who presents to the ER back and abdominal pain and rectal bleeding. Patient was seen with her daughter Yaritza at bedside. She was seen by her PCP 2 days ago for the rectal bleeding but declined any further workup. She takes apixaban for atrial fibrillation which she last took this morning (around 9am). History is somewhat difficult regarding timelines for the patient and her daughter at bedside notes she tends to underplay symptoms which have likely been going on for much longer. The patient thinks the rectal bleeding started around 5 days ago and happening intermittently. She denies any diarrhea or melena although her daughter notes she may have had a couple of episodes of diarrhea earlier this week. No nausea, vomiting or constipation. Abdominal back/abdominal pain which she thinks started yesterday but became much more severe today although also noted on her PCP note from 2 days ago. Worse on movement and with bowel movements. She feels pain on defecation. Having significant tenesmus without bowel movements. Abdominal/back pain is generalized (although noted on exam much worse on right compared to left side). No personal or family history of IBD, colon cancer. Personal history of diverticulitis. She has chronic hypoxic respiratory failure usually 3LPM O2 due to underlying COPD/asthma. In the ER she was noted to be pancytopenic. She denies any family or personal history of blood cancers. B12 notably < 400 in April 2023, she is not on supplementation for this. She denies any chest pain, worsening shortness of br eath or dizziness. She does note generalized fatigue and shortness of breath however she does not think this is worse than her baseline. She denies any other blood loss such as hematemesis, hematuria, hemoptysis or epistaxis. Allergies Allergy/AdvReac Type Severity Reaction Status Date / Time sacubitril [From Entresto] AdvReac Severe hyperkalemi Verified 09/07/23 15:12 a valsartan [From Entresto] AdvReac Severe hyperkalemi Verified 09/07/23 15:12 a Home Medications Medication Instructions Recorded Confirmed Type Oxygen Home #1 ea 03/05/19 09/05/23 History lancets 30 gauge (OBX BoatworksTouch Delica #25 ea 03/05/19 09/05/23 History Lancets) CPAP Machine #1 ea 11/20/19 09/05/23 Rx blood sugar diagnostic (Vacatia #100 ea 05/06/22 09/05/23 Rx Verio test strips) blood-glucose meter (Vacatia #1 ea 05/06/22 09/05/23 Rx Verio Meter) insulin glargine 100 unit/mL (3 10 unit (0.1 mL) subcut QPM 90 08/11/22 09/07/23 Rx mL) subcutaneous pen (Lant days #9 mL Solostar U-100 Insulin) apixaban 2.5 mg tablet (Eliquis) 2.5 mg PO BID #60 tabs 11/24/22 09/07/23 Rx levothyroxine 88 mcg tablet 88 mcg PO 6XWK #90 tabs 11/24/22 09/07/23 Rx pramipexole 0.5 mg tablet 0.5 mg PO .COMPLEX 30 days #270 01/12/23 09/07/23 Rx tabs ipratropium 0.5 mg-albuterol 3 mg 3 ml inhalation Q4H PRN wheezing 03/18/23 09/07/23 Rx (2.5 mg base)/3 mL nebulization #540 mL soln gabapentin 300 mg capsule 300 mg PO HS #180 caps 04/22/23 09/07/23 Rx metoprolol succinate 200 mg 100 mg (1/2 x 200 mg) PO DAILY #30 04/22/23 09/07/23 Rx tablet,extended release 24 hr tabs furosemide 40 mg tablet (Lasix) 40 mg PO DAILY #135 tabs 05/06/23 09/07/23 Rx lisinopril 5 mg tablet (Zestril) 5 mg PO DAILY #90 tabs 05/09/23 09/07/23 Rx acetaminophen 500 mg oral powder 500 mg PO Q6H PRN PAIN/FEVER 06/20/23 09/07/23 History packet (Tylenol Extra Strength) metoprolol succinate 50 mg 50 mg PO DAILY #90 tabs 06/20/23 09/07/23 Rx tablet,extended release 24 hr lorazepam 1 mg tablet 1 mg PO HS PRN Sleep #30 tabs 06/28/23 09/07/23 Rx pen needle, diabetic 31 gauge x #100 ea 07/06/23 09/05/23 Rx 5/16" (Lite Touch Insulin Pen [place]) albuterol sulfate 90 mcg/actuation 2 puff inhalation Q6H PRN 08/04/23 09/07/23 Rx aerosol inhaler shortness of breath or wheezing #8.5 grams umeclidinium 62.5 mcg-vilanterol 1 inh inhalation DAILY #60 ea 08/22/23 09/07/23 Rx 25 mcg/actuation powdr for inhalation (Anoro Ellipta) Past Med/Surg History Medical History Morbid obesity with BMI of 40.0-44.9, adult Gout Mild cognitive impairment Atrial fibrillation Chronic systolic CHF (congestive heart failure) Cardiomyopathy Anemia Anxiety Chronic kidney disease, stage 3 (moderate) Chronic obstructive pulmonary disease Depression Diabetic peripheral neuropathy Diabetic retinopathy Dyslipidemia Generalized osteoarthritis of multiple sites Hypertension Hypothyroidism Obesity hypoventilation syndrome Obstructive sleep apnea of adult Osteoporosis Pulmonary hypertension Restless legs syndrome Restrictive lung disease Secondary hyperparathyroidism Tinnitus Type 2 diabetes mellitus Vitamin B12 deficiency Vitamin D deficiency Surgical History H/O cervical spine surgery Late 1989' H/O hysterectomy with oophorectomy TABHSO secondary heavy bleeding. Family History Father Alzheimer disease Sister Brain tumor Mother Myocardial infarction AAA (abdominal aortic aneurysm) Brother Myocardial infarction T2DM (type 2 diabetes mellitus) Denies family history of Ovarian cancer Prostate cancer Breast cancer Colorectal cancer Social History Smoking Status: Former smoker Tobacco Type: Cigarettes Age Started Using Tobacco: 14; Age Quit Using Tobacco: 59; packs per day: 0.5; Cigarettes Per Day: 10; Second Hand Exposure: Yes (her family smokes around her ); Do You Dip or Chew Tobacco: No; Hx Alcohol Use: No Hx Substance Use: No Preferred Language: Angolan Communication Ability: Effective Visual Impairment: No Limitations Hearing Ability: Normal Grinder Brake Lining Required: No Beliefs That Will Affect Care: None marital status: Current Living Situation: Alone current occupational status: retired current occupation: she worked in housekeeping at the hospital Feels Safe at Home: Yes Childhood Exposure to Second-Hand Smoke: Yes Diet: regular Dental Care, Regularly: No Physical Activity Frequency: Does not Exercise Seatbelt Use: never Sunscreen Use: No Assistive Devices: Oxygen - Continuous ([facility]) and Walker Review of Systems Review of Systems: All systems reviewed & are unremarkable except as noted in HPI & below Physical Exam Constitutional: WD/WN, vitals as above Eyes: PERRL, conjunctivae normal, anicteric sclerae ENMT: external ear and nose normal, oropharynx normal Respiratory: normal respiratory effort, lungs clear to auscultation Cardiovascular: Rate/Rhythm: regular rate and regular rhythm Heart Sounds: no murmur Vessels: no JVD Extremities: normal capillary refill and + pedal edema (1+ b/l LE edema); no calf tenderness Gastrointestinal (Abdomen): Inspection/Auscultation: + abdomen distended; + abdomen abnormal to inspection (mild ecchymosis on anterior abdominal wall) Percussion/Palpation: + abdomen tender (right sided) and abdomen soft; no guarding and abdomen not rigid Musculoskeletal: no cyanosis or clubbing, extremities motor strength 5/5 Skin: no rashes, warm and dry (crack in heel dressing removed without surrounding cellulitis) Neurologic: moves all extremities and awake; not confused Psychiatric: Orientation: alert, oriented to person and oriented to place; + not oriented to time Genitourinary: + CVA tenderness (right) Results & Data Results & Data Vital Signs (Past 12 Hours) Vital Signs Temp Pulse Pulse Resp BP BP Pulse Ox 09/07/23 14:54 74 22 101/50 L 100 09/07/23 11:51 36.5 C 90 18 117/48 L 94 O2 Del Method O2 Flow Rate 09/07/23 14:54 Nasal Cannula 3 09/07/23 11:51 Nasal Cannula 2.5 Laboratory Results Abnormal lab results 09/07/23 Range/Units 12:10 WBC 1.91 L (4.8-10.8) K/ul RBC 2.05 L (4.20-5.40) M/uL Hgb 7.4 L (12.0-16.0) g/dl Hct 23.6 L (37.0-47.0) % MCV 115.1 H (80.0-100.0) fL MCH 36.1 H (25.0-34.0) pg MCHC 31.4 L (32.0-36.0) g/dL RDW Std Deviation 65.1 H (36.4-46.3) fL RDW Coeff of Vanessa 15.3 H (11.5-14.5) % Plt Count 86 L (130-400) K/uL Neutrophils # (Manual) 0.92 L (1.40-6.50) K/uL Total Absolute Neuts 0.92 L* (1.4-6.5) K/uL Lymphocytes # (Manual) 0.74 L (1.2-3.4) K/uL Total Abs Lymphocytes 0.74 L (1.2-3.4) K/uL Blast Cells # (Man) 0.04 H (0-0) K/uL Carbon Dioxide 36 H (21-32) mmol/L BUN 50 H (6-23) mg/dl Creatinine 1.90 H (0.6-1.2) mg/dl BUN/Creatinine Ratio 26.3 H (10-20) Glucose 124 H (70-99(Fasting)) mg/dl AST 11 L (13-39) U/L Diagnostic Findings XR chest 1V portable CLINICAL HISTORY: GI bleed. COMPARISON STUDY: Chest radiograph April 15, 2023. Chest CT April 18, 2023. FINDINGS: Enlargement of the cardiac silhouette is similar to prior exam. There is no pneumothorax. Small right and trace left pleural effusions are present. There is no evidence for pulmonary edema. There is no definite consolidation to suggest pneumonia. Right basilar opacity favors atelectasis. Postoperative findings within the cervical spine are incidentally noted. IMPRESSION: 1. Stable enlargement of the cardiac silhouette. No evidence for pulmonary edema. 2. Small right and trace left pleural effusions. Right basilar opacity favors atelectasis. ABDOMEN AND PELVIS CT WITHOUT CONTRAST CT DOSE: 1240.29 mGy.cm HISTORY: Acute lower abdominal pain with anemia Lower abd pain, anemia, Elevated Creat TECHNIQUE: Multiaxial CT images of the abdomen and pelvis were performed without contrast. A dose lowering technique was utilized adhering to the principles of ALARA. COMPARISON STUDY: 01/09/2015 FINDINGS: Marked cardiomegaly. Pericardial effusion measures up to 2.4 cm, increased in size from prior. Extensive coronary artery calcifications. Small right and trace left pleural effusions. Bibasilar opacities favor atelectasis/scarring. Limited study secondary to respiratory motion, approximately positioning and lack of contrast. Unremarkable spleen, pancreas and right adrenal gland. 1.8 cm left adrenal adenoma. Mildly contracted gallbladder with stone present within the gallbladder neck. Mild pericholecystic stranding. No biliary ductal dilation. Atrophy of the right greater left kidneys with bilateral cortical thinning. 5 mm calcification of the inferior pole right kidney. No ureteral calculi or hydronephrosis identified. Unremarkable urinary bladder with mild wall thickening. Hysterectomy with pelvic floor relaxation. Cystocele and rectocele. Atherosclerosis of aorta. No lymphadenopathy. No bowel obstruction. There is mild nonspecific rectal wall thickening with perirectal stranding. Stents of colonic diverticulosis. No acute diverticulitis. Normal appendix. Small fat filled umbilical hernia. There is a large pannus. De generative changes of the spine, pelvis and hips. Multilevel central canal stenosis. IMPRESSION: 1. No bowel obstruction or pneumoperitoneum. 2. There is mild nonspecific rectal wall thickening with perirectal stranding. Correlate clinically to exclude a mild nonspecific proctitis. 3. Cholelithiasis without definite CT evidence of acute cholecystitis. 4. 4 mm calcification of the right kidney. No hydronephrosis. 5. Cardiomegaly with moderate-sized pericardial effusion. Trace left and small right pleural effusions. 6. Additional findings as above. Medications Administered ER medications given: None ECG Rate (beats per minute): 84 Rhythm: other (Wandering baseline makes interpretation difficult however appears to be atrial fibrillation) Findings: no acute ischemic change Comparison ECG Date: from (June 20, 2023) Change: no significant change Code Status & VTE Plan Code Status Full VTE Prophylaxis Plan VTE Prophylaxis will be ordered: No Reason for no VTE drug order: Treatment not indicated PG Care Time/CCT Total # of Minutes Spent Total Time Spent with Patient: Total time spent is greater than 50% in coordination of care (as documented) at patient's floor/unit and/or counseling patient: Coding Level of Care Code 52367 INT INP/OBS CARE 3/75MIN Diagnoses Proctitis K62.89 Pancytopenia D61.818 Rectal bleeding K62.5 Abdominal pain R10.9 Pericardial effusion I31.39 Pleural effusion J90 Permanent atrial fibrillation I48.21 Obstructive sleep apnea of adult G47.33 Type 2 diabetes mellitus E11.9 Restless legs syndrome G25.81 Chronic systolic CHF (congestive heart failure) I50.22 Chronic respiratory failure with hypoxia J96.11 Acute blood loss anemia D62
[2023-09-07 16:01] LABS: INR 1.1 (0.9-1.1); Prothrombin Time 11.9 Seconds (9.0-12.0)
[2023-09-07 16:03] LABS: Partial Thromboplastin Ratio 0.9; Partial Thromboplastin Time 24 Seconds (21-31)
[2023-09-07 16:05] LABS: Magnesium 2.3 mg/dl (1.7-2.4)
[2023-09-07 16:06] LABS: Reticulocyte % 1.72 % (0.50-2.00); Reticulocytes # 0.04 10^6/uL (0.020-0.100)
[2023-09-07 16:10] LABS: C Reactive Protein 6.37 mg/dl (0-0.5)
[2023-09-07 16:14] LABS: Troponin I High Sensitivity 12.6 pg/ml (0-14)
[2023-09-07 16:24] LABS: Thyroid Stimulating Hormone 3.461 uIu/ml (0.300-4.500)
[2023-09-07 16:33] LABS: Folate (Folic Acid),Ser orPlas 14.97 ng/ml (>5.38)
--- NOTE | 2023-09-07 16:59 | Electrocardiogram Report ---
Test Reason : Blood Pressure : / mmHG Vent. Rate : 084 BPM Atrial Rate : 000 BPM P-R Int : 000 ms QRS Dur : 120 ms QT Int : 396 ms P-R-T Axes : 000 067 032 degrees QTc Int : 467 ms Atrial fibrillation with a competing junctional pacemaker Low voltage QRS Incomplete right bundle branch block Possible Old Septal infarct (cited on or before 15-OCT-2022) Abnormal ECG When compared with ECG of 20-JUN-2023 09:53, QT has lengthened Confirmed by Gm Agrawal ([id number]) on 09/07/2023 4:58:55 PM Referred By: REFERRED SELF Confirmed By:Gm Agrawal
[2023-09-07] MEDS ORDERED: PRAMIPEXOLE DIHYDROCHLO 0.5 MG TAB PO SCH (18:35)
[2023-09-07] MEDS ORDERED: LORazepam 1 MG TAB PO PRN (18:35)
[2023-09-07] MEDS ORDERED: cefTRIAXone SODIUM 2,000 MG in DEXTROSE 5 % MINI-B 50 ML IV SCH (18:35)
[2023-09-07 18:36] LABS: Hematocrit (blood only) 23.8 % (37.0-47.0); Hemoglobin 7.4 g/dl (12.0-16.0)
--- NOTE | 2023-09-07 19:02 | XCELERA ---
[id number]
[2023-09-07] MEDS ORDERED: DEXTROSE 50% 50 ML SYRINGE IV PRN (19:10)
[2023-09-07] MEDS ORDERED: GLUCOSE 10 TAB/TUBE PO PRN (19:10)
[2023-09-07] MEDS ORDERED: CARBOHYDRATES FOR HYPOGLYCEMIA PO PRN (19:10)
[2023-09-07] MEDS ORDERED: GLUCOSE 40% GEL 15 GM TUBE PO PRN (19:10)
[2023-09-07] MEDS ORDERED: GLUCAGON FOR INJ 1 MG VIAL SQ PRN (19:10)
[2023-09-07] MEDS ORDERED: Patient's HEIGHT &/or WEIGHT Needed SCH (19:30)
[2023-09-07] MEDS: GABAPENTIN 300 MG CAP PO SCH (20:51)
[2023-09-07] MEDS: PRAMIPEXOLE DIHYDROCHLO 0.5 MG TAB PO SCH (20:52)
[2023-09-07] MEDS: ALBUT/IPRATROP 3MG/0.5MG NEB 3 ML VIAL NEB SCH (20:53)
[2023-09-07] MEDS ORDERED: LANTUS PER UNIT CHARGE SQ SCH (21:00)
[2023-09-07] MEDS: INSULIN ASPART PER UNIT CHARGE SC SCH (21:08)
[2023-09-08] MEDS: metroNIDAZOLE 500 MG/100 ML BAG IV SCH (00:58)
[2023-09-08 01:20] LABS: Hematocrit (blood only) 24.2 % (37.0-47.0); Hemoglobin 7.3 g/dl (12.0-16.0)
[2023-09-08] MEDS: LEVOTHYROXINE SODIUM 88 MCG TABLET PO SCH (06:25)
[2023-09-08 07:21] LABS: BUN Creatinine Ratio 29.6 (10-20); Calcium 8.4 mg/dl (8.6-10.3); Creatinine Clr Calc Pharmacy 28.9 ml/min; Est GFR (African American) 32.2 ml/min; Est GFR (Non-African American) 27.8 ml/min; Potassium 4.9 mmol/L (3.5-5.1)
[2023-09-08] MEDS: lisinopril 5 MG TAB PO SCH (07:35)
[2023-09-08] MEDS: METOPROLOL SUCC 50MG EXT REL TAB PO SCH (07:35)
[2023-09-08] MEDS: FUROSEMIDE 40 MG TAB PO SCH (07:35)
[2023-09-08] MEDS: UMECLIDINIUM/VILANTEROL 62.5/25MCG 7 PUFFS/INHALER INH SCH (07:36)
[2023-09-08 08:17] LABS: Hematocrit (blood only) 22.7 % (37.0-47.0); Mean Corpuscular Hemoglobin 36.6 pg (25.0-34.0); Mean Corpuscular Hgb Conc 30.8 g/dL (32.0-36.0); Mean Corpuscular Volume 118.8 fL (80.0-100.0); Mean Platelet Volume 10.8 fL (9.4-12.4); Platelet Count 72 K/uL (130-400); RDW Coefficient of Variation 15.5 % (11.5-14.5); RDW Standard Deviation 67.5 fL (36.4-46.3); Red Blood Count 1.91 M/uL (4.20-5.40); White Blood Count 1.58 K/ul (4.8-10.8)
[2023-09-08 08:19] LABS: ALC (manual) 0.71 K/uL (1.2-3.4); ANC (manual) 0.58 K/uL (1.4-6.5); Blast # (manual) 0.05 K/uL (0-0); Blast Cells % (manual) 3 %; Eosinophils # (manual) 0.05 K/uL (0-0.50); Eosinophils % (manual) 3 %; Lymphocytes # (manual) 0.71 K/uL (1.2-3.4); Lymphocytes % (manual) 45 %; Microcytosis Present; Monocytes # (manual) 0.19 K/uL (0.11-0.59); Monocytes % (manual) 12 %; Neutrophils # (manual) 0.58 K/uL (1.40-6.50); Neutrophils % (manual) 37 %
--- NOTE | 2023-09-08 08:33 | Hospitalist Progress Note ---
Date of Service September 08, 2023 Assessment & Plan (1) Proctitis: Plan: Seen on admission CT abdomen and pelvis Suspect this is the cause of her abdominal pain. Does not seem to have had recent constipation. Possibly has had diarrhea. CRP 6 and ESR 35 Due to concurrent pancytopenia will cover for infective etiology with ceftriaxone and metronidazole Stool PCR/c. diff PCR ordered - daughter reported diarrhea but patient did not Consulted gastroenterology Clear liquid diet for now (2) Pancytopenia: Plan: Unknown cause. Hg and WBC normal in april and platelets 108, normal prior to that. B12 217 (notably < 400 in April), folate 14, ferritin, iron studies reviewed and ok, retic count 1.72, peripheral smear with rare blasts Reviewed medlist and fill history. No recent antibiotics listed. lasix and lisinopril could cause pancytopenia but that would be very rare. No splenomegaly on CT, labs and imaging not consistent with advanced cirrhosis CRP elevated perhaps related to proctitis, ESR only 35 and procal was negative. Discussed with pathologist who reviewed blood smear - suspicious for MDS Consulted hematology - discussed with Dr. Archer -IR bone marrow biopsy ordered -anemia with Hgb near 7 - borderline for benefiting from transfusion in the context of her heart failure and CKD, consider and discuss with patient (3) Rectal bleeding: Plan: FOB negaitve with brown stool in the ER. Occurring intermittently Likely related to proctitis and apixaban (4) Pericardial effusion: Plan: Known diagnosis. Repeat TTE limited order to check for stability. (5) Pleural effusion: Plan: Small/trivial bilateral, related to heart failure (6) Permanent atrial fibrillation: Plan: Hold apixaban due to anemia and thrombocytopenia with recent rectal bleeding Continue metoprolol for rate control (7) Obstructive sleep apnea of adult: Plan: CPAP HS (8) Type 2 diabetes mellitus: Plan: HbA1C 6.8 in April, will repeat with a.m. labs Home medications Lantus 10 units HS -continue glargine + short acting (9) Restless legs syndrome: Plan: Continue pramipexole (10) Chronic systolic CHF (congestive heart failure): Plan: Euvolemic Continue routine Lasix dosing Followed in heart failure clinic (11) Chronic respiratory failure with hypoxia: Plan: Baseline 2-3 LPM O2 Aim O2 > 90% (12) Acute blood loss anemia: Plan VTE Prophylaxis - SCDs, chemoppx deferred due to anemia, rectal bleeding Dispo - lives with her who was just discharged from hospital to [facility] today. daughter lives nearby updated her daughter at bedside 09/08 Admission and Anticipated Discharge Date Admission Date: September 07, 2023 Subjective Vague historian, seen with her daughter at bedside who provided more history Has bilateral lower quadrant abdominal pain. Not constipated recently stooling more than usual - she reported soft stool however her daughter reported diarrhea No nausea Dyspneic at rest but not more than baseline. Has home O2 3L No extremity edema. Physical Exam 2 Physical Exam: PHYSICAL EXAMINATION Last 24h vital signs reviewed, see documentation in flowsheet General: Chronically ill-appearing woman, no distress HEENT: Normocephalic, atraumatic, pupils round and equal, sclerae anicteric, no conjunctival injection, moist mucus membranes Lungs: Mildly increased work of breathing at rest. Clear bilaterally anteriorly, posteriorly scattered coarse crackles in both bases no wheezing Heart: Regular rate and rhythm, no murmurs. No JVD Abdomen: Soft, nontender, nondistended. no rrg Bowel sounds present. Extremities: Warm, dry, well-perfused. No extremity edema. Neuro: Alert and oriented x 4 but vague historian, face symmetric, moves 4 extremities well Psych: Normal affect and behavior Results & Data Results & Data Vital Signs (Past 12 Hours) Vital Signs Pulse Pulse Resp BP BP Pulse Ox O2 Del Method 09/08/23 08:22 Nasal Cannula 09/08/23 07:26 98 H 09/08/23 07:00 74 20 108/53 L 97 Nasal Cannula 09/08/23 06:54 104 H 20 96 Nasal Cannula 09/08/23 03:00 86 24 94 Nasal Cannula 09/08/23 01:31 Nasal Cannula 09/08/23 00:00 77 22 118/71 99 Nasal Cannula 09/07/23 23:24 91 H 09/07/23 23:00 81 20 119/64 96 09/07/23 22:50 81 22 96 09/07/23 22:00 82 21 109/67 98 Nasal Cannula 09/07/23 21:20 82 116/71 98 Nasal Cannula O2 Flow Rate 09/08/23 08:22 2 09/08/23 07:26 09/08/23 07:00 2 09/08/23 06:54 2 09/08/23 03:00 2 09/08/23 01:31 2 09/08/23 00:00 2 09/07/23 23:24 09/07/23 23:00 09/07/23 22:50 09/07/23 22:00 2 09/07/23 21:20 2 Laboratory Results 09/08/23 06:16 09/08/23 06:16 PG Care Time/CCT Total # of Minutes Spent Total Time Spent with Patient: Total time spent is greater than 50% in coordination of care (as documented) at patient's floor/unit and/or counseling patient: Coding Level of Care Code 27265 SUB INP/OBS CARE 3/50MIN Diagnoses Proctitis K62.89 Pancytopenia D61.818 Rectal bleeding K62.5 Pericardial effusion I31.39 Pleural effusion J90 Permanent atrial fibrillation I48.21 Obstructive sleep apnea of adult G47.33 Type 2 diabetes mellitus E11.9 Restless legs syndrome G25.81 Chronic systolic CHF (congestive heart failure) I50.22 Chronic respiratory failure with hypoxia J96.11 Acute blood loss anemia D62
[2023-09-08] MEDS ORDERED: METOPROLOL SUCC 50MG EXT REL TAB PO SCH (09:00)
--- NOTE | 2023-09-08 12:56 | Oncology Consultation ---
Date of Consultation September 08, 2023 Assessment & Plan (1) Pancytopenia: At this point it is unclear whether patient has severe pancytopenia. Her WBC count is only 1.58, has predominantly neutropenia with an absolute neutrophil count of 0.58. Hemoglobin is 7.0 with microcytosis and hypochromia. Platelet count is 72,000. My concerns are of an underlying nutritional deficiency. She does have borderline low vitamin B12 which is at 217. Will recommend vitamin B 12 supplementation at 1000 mcg p.o. daily. Will also recommend iron supplementation as she has had rectal bleeding and is probably iron deficient despite a normal iron profile. I have also recommended a bone marrow biopsy since the patient has pancytopenia is older than 80 years old, there could be an underlying concern for myelodysplastic syndrome. Consult for IR have been placed. Transfusion parameters for anemia, hemoglobin less than 7 g/dL Transfusion parameters for thrombocytopenia, platelet count less than 10,000/mcL. Plan Hematology will continue to follow the patient and make appropriate recommendations. Thank you for this interesting hematological consult. Consult for IR placed for bone marrow biopsy. History of Present Illness Attending Physician: Torie Martinez MD History of Present Illness The patient is a very pleasant 83-year-old woman who came to the [facility] ER complaining of back and abdominal pain. She noticed rectal bleeding a few days ago however declined further workup. She has been taking apixaban for atrial fibrillation. She is very fatigued and tired, has no energy whatsoever. She has a history of chronic hypoxic respiratory failure and is currently on 3 L oxygen due to underlying COPD. Was noted to be pancytopenic on admission. On admission, her WBC count was 1.58, hemoglobin was 7.0 g/dL, hematocrit was 22.7%, platelet count was 72,000/mcL. She was microcytic and hypochromic. Her creatinine is elevated however at baseline is between 1.6 and 2.2 g/dL. Iron indicis were checked, revealed serum iron of 51, TIBC of 221, transferrin saturation of 23%. BNP was elevated. Folic acid on admission was 14.97, vitamin B12 was borderline low at 217. Her hemoglobin in April was 11.7 however is now declined to 7.0 granted there is a concern for anemia because of blood loss. Peripheral smear was reviewed by our pathology colleagues and there were concerns for an underlying MDS type of picture. Allergies Allergy/AdvReac Type Severity Reaction Status Date / Time sacubitril [From Entresto] AdvReac Severe hyperkalemi Verified 09/07/23 15:12 a valsartan [From Entresto] AdvReac Severe hyperkalemi Verified 09/07/23 15:12 a Home Medications Medication Instructions Recorded Confirmed Type Oxygen Home #1 ea 03/05/19 09/05/23 History lancets 30 gauge (OneTouch Delica #25 ea 03/05/19 09/05/23 History Lancets) CPAP Machine #1 ea 11/20/19 09/05/23 Rx blood [facility] 05/06/22 09/05/23 Rx Verio test strips) blood-glucose meter ([facility] 05/06/22 09/05/23 Rx Verio Meter) insulin glargine 100 unit/mL (3 10 unit (0.1 mL) subcut QPM 90 08/11/22 09/07/23 Rx mL) subcutaneous pen (Lant days #9 mL Solostar U-100 Insulin) apixaban 2.5 mg tablet (Eliquis) 2.5 mg PO BID #60 tabs 11/24/22 09/07/23 Rx levothyroxine 88 mcg tablet 88 mcg PO 6XWK #90 tabs 11/24/22 09/07/23 Rx pramipexole 0.5 mg tablet 0.5 mg PO .COMPLEX 30 days #270 01/12/23 09/07/23 Rx tabs ipratropium 0.5 mg-albuterol 3 mg 3 ml inhalation Q4H PRN wheezing 03/18/23 09/07/23 Rx (2.5 mg base)/3 mL nebulization #540 mL soln gabapentin 300 mg capsule 300 mg PO HS #180 caps 04/22/23 09/07/23 Rx metoprolol succinate 200 mg 100 mg (1/2 x 200 mg) PO DAILY #30 04/22/23 09/07/23 Rx tablet,extended release 24 hr tabs furosemide 40 mg tablet (Lasix) 40 mg PO DAILY #135 tabs 05/06/23 09/07/23 Rx lisinopril 5 mg tablet (Zestril) 5 mg PO DAILY #90 tabs 05/09/23 09/07/23 Rx acetaminophen 500 mg oral powder 500 mg PO Q6H PRN PAIN/FEVER 06/20/23 09/07/23 History packet (Tylenol Extra Strength) metoprolol succinate 50 mg 50 mg PO DAILY #90 tabs 06/20/23 09/07/23 Rx tablet,extended release 24 hr lorazepam 1 mg tablet 1 mg PO HS PRN Sleep #30 tabs 06/28/23 09/07/23 Rx pen needle, diabetic 31 gauge x #100 ea 07/06/23 09/05/23 Rx 5/16" (Lite Touch Insulin Pen [place]) albuterol sulfate 90 mcg/actuation 2 puff inhalation Q6H PRN 08/04/23 09/07/23 Rx aerosol inhaler shortness of breath or wheezing #8.5 grams umeclidinium 62.5 mcg-vilanterol 1 inh inhalation DAILY #60 ea 08/22/23 09/07/23 Rx 25 mcg/actuation powdr for inhalation (Anoro Ellipta) Patient History Medical History Morbid obesity with BMI of 40.0-44.9, adult Gout Mild cognitive impairment Atrial fibrillation Chronic systolic CHF (congestive heart failure) Cardiomyopathy Anemia Anxiety Chronic kidney disease, stage 3 (moderate) Chronic obstructive pulmonary disease Depression Diabetic peripheral neuropathy Diabetic retinopathy Dyslipidemia Generalized osteoarthritis of multiple sites Hypertension Hypothyroidism Obesity hypoventilation syndrome Obstructive sleep apnea of adult Osteoporosis Pulmonary hypertension Restless legs syndrome Restrictive lung disease Secondary hyperparathyroidism Tinnitus Type 2 diabetes mellitus Vitamin B12 deficiency Vitamin D deficiency Surgical History H/O cervical spine surgery Late H/O hysterectomy with oophorectomy TABHSO secondary heavy bleeding. Family History Father Alzheimer disease Sister Brain tumor Mother Myocardial infarction AAA (abdominal aortic aneurysm) Brother Myocardial infarction T2DM (type 2 diabetes mellitus) Denies family history of Ovarian cancer Prostate cancer Breast cancer Colorectal cancer Social History Smoking Status: Former smoker Tobacco Type: Cigarettes Age Started Using Tobacco: 14; Age Quit Using Tobacco: 59; packs per day: 0.5; Cigarettes Per Day: 10; Second Hand Exposure: Yes (her family smokes around her ); Do You Dip or Chew Tobacco: No; Hx Alcohol Use: No Hx Substance Use: No Preferred Language: Slovak Communication Ability: Effective Visual Impairment: No Limitations Hearing Ability: Normal Director Of Radio Services Required: No Beliefs That Will Affect Care: None marital status: Current Living Situation: Alone current occupational status: retired current occupation: she worked in housekeeping at the hospital Feels Safe at Home: Yes Childhood Exposure to Second-Hand Smoke: Yes Diet: regular Dental Care, Regularly: No Physical Activity Frequency: Does not Exercise Seatbelt Use: never Sunscreen Use: No Assistive Devices: CPAP, Oxygen - Continuous and Walker Review of Systems Constitutional: as per Subjective / HPI Eyes: as per Subjective / HPI Ear, Nose, Mouth, Throat: as per Subjective / HPI Respiratory: as per Subjective / HPI Cardiovascular: as per Subjective / HPI Gastrointestinal: as per Subjective / HPI Genitourinary: as per Subjective / HPI Musculoskeletal: as per Subjective / HPI Integumentary: as per Subjective / HPI Neurologic: as per Subjective / HPI Physical Exam Constitutional: WD/WN, vitals as above Eyes: PERRL, conjunctivae normal, anicteric sclerae ENMT: external ear and nose normal, oropharynx normal Neck: trachea midline, no thyromegaly Respiratory: normal respiratory effort, lungs clear to auscultation Cardiovascular: RRR, no murmur, no edema Gastrointestinal (Abdomen): normal bowel sounds, soft, nontender, no hepatosplenomegaly Musculoskeletal: no cyanosis or clubbing, extremities motor strength 5/5 Skin: no rashes, warm and dry Neurologic: patellar DTR's 2+ bilat, sensation intact Results & Data Vital Signs (Past 12 Hours) Vital Signs Temp Pulse Pulse Resp BP BP Pulse Ox 09/08/23 11:22 36.8 C 90 17 98/46 L 96 09/08/23 11:21 89 19 90 09/08/23 08:22 09/08/23 07:26 98 H 09/08/23 07:00 74 20 108/53 L 97 09/08/23 06:54 104 H 20 96 09/08/23 03:00 86 24 94 09/08/23 01:31 O2 Del Method O2 Flow Rate 09/08/23 11:22 Nasal Cannula 2 02/08/24 11:21 Nasal Cannula 6 09/08/23 08:22 Nasal Cannula 2 09/08/23 07:26 09/08/23 07:00 Nasal Cannula 2 09/08/23 06:54 Nasal Cannula 2 09/08/23 03:00 Nasal Cannula 2 09/08/23 01:31 Nasal Cannula 2
[2023-09-08] MEDS: PRAMIPEXOLE DIHYDROCHLO 0.5 MG TAB PO SCH (14:10)
--- NOTE | 2023-09-08 16:35 | Gastrointestinal Consultation ---
Date of Consultation September 08, 2023 Assessment & Plan (1) Abdominal pain: She has abdominal pain that seems to have improved. I don't know that I think she has proctitis unless it is related to neutropenia. Her stools are reported solid, soft and brown. Sometimes right heart failure can cause hepatic congestion with pain related to swelling of the liver against the capsule. Certainly she cannot have evaluation of her colon with her breathing the way it is and her neutropenia. I would just observe her abdomen for now and let other issues be resolved. Will follow History of Present Illness Reason for Consultation: proctitis Attending Physician: Torie Martinez MD History of Present Illness 83 year old female admitted with heart failure, abdominal pain and pancytopenia. She tells me she has had abdominal pain for about five days. It is midabdominal radiating around both sides and into her back. Eating does not affect the pain. Having a bowel movement makes her feel better. She does not see blood in her stools. She doesn't feel like she has been constipated. She has had a lot of trouble breathing. Currently her neutrophil count is 580. CT scan shows "suggestion of proctitis. She does not remember ever having had a colonoscopy Allergies Allergy/AdvReac Type Severity Reaction Status Date / Time sacubitril [From Entresto] AdvReac Severe hyperkalemi Verified 09/07/23 15:12 a valsartan [From Entresto] AdvReac Severe hyperkalemi Verified 09/07/23 15:12 a Home Medications Medication Instructions Recorded Confirmed Type Oxygen Home #1 ea 03/05/19 09/05/23 History lancets 30 gauge (OneTouch Delica #25 ea 03/05/19 09/05/23 History Lancets) CPAP Machine #1 ea 11/20/19 09/05/23 Rx blood sugar diagnostic (OneTouch #100 ea 05/06/22 09/05/23 Rx Verio test strips) blood-glucose meter (OneTouch #1 ea 05/06/22 09/05/23 Rx Verio Meter) insulin glargine 100 unit/mL (3 10 unit (0.1 mL) subcut QPM 90 08/11/22 09/07/23 Rx mL) subcutaneous pen (Lantus days #9 mL Solostar U-100 Insulin) apixaban 2.5 mg tablet (Eliquis) 2.5 mg PO BID #60 tabs 11/24/22 09/07/23 Rx levothyroxine 88 mcg tablet 88 mcg PO 6XWK #90 tabs 11/24/22 09/07/23 Rx pramipexole 0.5 mg tablet 0.5 mg PO .COMPLEX 30 days #270 01/12/23 09/07/23 Rx tabs ipratropium 0.5 mg-albuterol 3 mg 3 ml inhalation Q4H PRN wheezing 03/18/23 09/07/23 Rx (2.5 mg base)/3 mL nebulization #540 mL soln gabapentin 300 mg capsule 300 mg PO HS #180 caps 04/22/23 09/07/23 Rx metoprolol succinate 200 mg 100 mg (1/2 x 200 mg) PO DAILY #30 04/22/23 09/07/23 Rx tablet,extended release 24 hr tabs furosemide 40 mg tablet (Lasix) 40 mg PO DAILY #135 tabs 05/06/23 09/07/23 Rx lisinopril 5 mg tablet (Zestril) 5 mg PO DAILY #90 tabs 05/09/23 09/07/23 Rx acetaminophen 500 mg oral powder 500 mg PO Q6H PRN PAIN/FEVER 06/20/23 09/07/23 History packet (Tylenol Extra Strength) metoprolol succinate 50 mg 50 mg PO DAILY #90 tabs 06/20/23 09/07/23 Rx tablet,extended release 24 hr lorazepam 1 mg tablet 1 mg PO HS PRN Sleep #30 tabs 06/28/23 09/07/23 Rx pen needle, diabetic 31 gauge x #100 ea 07/06/23 09/05/23 Rx 5/16" (Lite Touch Insulin Pen [place]) albuterol sulfate 90 mcg/actuation 2 puff inhalation Q6H PRN 08/04/23 09/07/23 Rx aerosol inhaler shortness of breath or wheezing #8.5 grams umeclidinium 62.5 mcg-vilanterol 1 inh inhalation DAILY #60 ea 08/22/23 09/07/23 Rx 25 mcg/actuation powdr for inhalation (Anoro Ellipta) Patient History Medical History Morbid obesity with BMI of 40.0-44.9, adult Gout Mild cognitive impairment Atrial fibrillation Chronic systolic CHF (congestive heart failure) Cardiomyopathy Anemia Anxiety Chronic kidney disease, stage 3 (moderate) Chronic obstructive pulmonary disease Depression Diabetic peripheral neuropathy Diabetic retinopathy Dyslipidemia Generalized osteoarthritis of multiple sites Hypertension Hypothyroidism Obesity hypoventilation syndrome Obstructive sleep apnea of adult Osteoporosis Pulmonary hypertension Restless legs syndrome Restrictive lung disease Secondary hyperparathyroidism Tinnitus Type 2 diabetes mellitus Vitamin B12 deficiency Vitamin D deficiency Surgical History H/O cervical spine surgery Late H/O hysterectomy with oophorectomy TABHSO secondary heavy bleeding. Family History Father Alzheimer disease Sister Brain tumor Mother Myocardial infarction AAA (abdominal aortic aneurysm) Brother Myocardial infarction T2DM (type 2 diabetes mellitus) Denies family history of Ovarian cancer Prostate cancer Breast cancer Colorectal cancer Social History Smoking Status: Former smoker Tobacco Type: Cigarettes Age Started Using Tobacco: 14; Age Quit Using Tobacco: 59; packs per day: 0.5; Cigarettes Per Day: 10; Second Hand Exposure: Yes (her family smokes around her ); Do You Dip or Chew Tobacco: No; Hx Alcohol Use: No Hx Substance Use: No Preferred Language: Algerian Communication Ability: Effective Visual Impairment: No Limitations Hearing Ability: Normal Alumni Relations Manager Required: No Beliefs That Will Affect Care: None marital status: Current Living Situation: Alone current occupational status: retired current occupation: she worked in housekeeping at the hospital Feels Safe at Home: Yes Childhood Exposure to Second-Hand Smoke: Yes Diet: regular Dental Care, Regularly: No Physical Activity Frequency: Does not Exercise Seatbelt Use: never Sunscreen Use: No Assistive Devices: CPAP, Oxygen - Continuous and Walker Review of Systems Review of Systems: All systems reviewed & are unremarkable except as noted in HPI & below Physical Exam Constitutional: + ill appearing Respiratory: + labored breathing and + retractions Cardiovascular: RRR, no murmur, no edema Gastrointestinal (Abdomen): normal bowel sounds, soft, nontender, no hepatosplenomegaly Results & Data Vital Signs (Past 12 Hours) Vital Signs Temp Pulse Pulse Resp BP BP Pulse Ox 09/08/23 15:34 36.6 C 49 L 18 106/58 L 96 09/08/23 14:56 97 H 18 92 09/08/23 11:22 36.8 C 90 17 98/46 L 96 09/08/23 11:21 89 19 90 09/08/23 11:15 79 09/08/23 08:22 09/08/23 07:26 98 H 09/08/23 07:00 74 20 108/53 L 97 09/08/23 06:54 104 H 20 96 O2 Del Method O2 Flow Rate 09/08/23 15:34 Nasal Cannula 2 09/08/23 14:56 Nasal Cannula 6 09/08/23 11:22 Nasal Cannula 2 09/08/23 11:21 Nasal Cannula 6 09/08/23 11:15 09/08/23 08:22 Nasal Cannula 2 09/08/23 07:26 09/08/23 07:00 Nasal Cannula 2 09/08/23 06:54 Nasal Cannula 2 Laboratory Results 09/08/23 09/08/23 09/08/23 Range/Units Unknown 11:50 07:34 WBC (4.8-10.8) K/ul RBC (4.20-5.40) M/uL Hgb (12.0-16.0) g/dl Hct (37.0-47.0) % MCV (80.0-100.0) fL MCH (25.0-34.0) pg MCHC (32.0-36.0) g/dL RDW Std Deviation (36.4-46.3) fL RDW Coeff of Vanessa (11.5-14.5) % Plt Count (130-400) K/uL MPV (9.4-12.4) fL Neutrophils % (Manual) % Lymphocytes % (Manual) % Monocytes % (Manual) % Eosinophils % (Manual) % Blast Cells % (Manual) % Neutrophils # (Manual) (1.40-6.50) K/uL Total Absolute Neuts (1.4-6.5) K/uL Lymphocytes # (Manual) (1.2-3.4) K/uL Total Abs Lymphocytes (1.2-3.4) K/uL Monocytes # (Manual) (0.11-0.59) K/uL Eosinophils # (Manual) (0-0.50) K/uL Blast Cells # (Man) (0-0) K/uL Microcytosis Sodium (136-145) mmol/L Potassium (3.5-5.1) mmol/L Chloride (98-107) mmol/L Carbon Dioxide (21-32) mmol/L Anion Gap (3-11) BUN (6-23) mg/dl Creatinine (0.6-1.2) mg/dl Est Cr Clr Drug Dosing ml/min Est GFR ( Amer) ml/min Est GFR (Non-Af Amer) ml/min BUN/Creatinine Ratio (10-20) Glucose (70-99(Fasting)) mg/dl POC Glucose 226 H 111 H (70-99) mg/dl Calcium (8.6-10.3) mg/dl Vitamin B12 (180-914) pg/ml Folate (>5.38) ng/ml Procalcitonin (0-0.5) ng/ml Stl C. cayetanensis PCR Pending Stool Rotavirus A PCR Pending Stl Adenov F 40/41 PCR Pending Stool Astrovirus (PCR) Pending Stool Campylobacter PCR Pending Stl C. diff Tox B Gene Pending Stool Cryptosporidium PCR Pending Stl E.coli Shiga Tox PCR Pending Stl Enterotoxigenic E PCR Pending Stool EAEC (PCR) Pending Stl E. histolytica PCR Pending Stool Giardia Lamblia PCR Pending Stool Salmonella PCR Pending Stool Sapovirus (PCR) Pending Stl P. shigelloides PCR Pending Stl Shigella/EIEC PCR Pending St Y.enterocolitica PCR Pending Stool Vibrio (PCR) Pending Stl Vibrio cholerae PCR Pending Stl Norovirus GI/GII PCR Pending 09/08/23 09/08/23 09/08/23 Range/Units 06:16 00:38 00:25 WBC 1.58 L (4.8-10.8) K/ul RBC 1.91 L (4.20-5.40) M/uL Hgb 7.0 L 7.3 L (12.0-16.0) g/dl Hct 22.7 L 24.2 L (37.0-47.0) % MCV 118.8 H (80.0-100.0) fL MCH 36.6 H (25.0-34.0) pg MCHC 30.8 L (32.0-36.0) g/dL RDW Std Deviation 67.5 H (36.4-46.3) fL RDW Coeff of Vanessa 15.5 H (11.5-14.5) % Plt Count 72 L (130-400) K/uL MPV 10.8 (9.4-12.4) fL Neutrophils % (Manual) 37 % Lymphocytes % (Manual) 45 % Monocytes % (Manual) 12 % Eosinophils % (Manual) 3 % Blast Cells % (Manual) 3 % Neutrophils # (Manual) 0.58 L (1.40-6.50) K/uL Total Absolute Neuts 0.58 L* (1.4-6.5) K/uL Lymphocytes # (Manual) 0.71 L (1.2-3.4) K/uL Total Abs Lymphocytes 0.71 L (1.2-3.4) K/uL Monocytes # (Manual) 0.19 (0.11-0.59) K/uL Eosinophils # (Manual) 0.05 (0-0.50) K/uL Blast Cells # (Man) 0.05 H (0-0) K/uL Microcytosis Present Sodium 145 (136-145) mmol/L Potassium 4.9 (3.5-5.1) mmol/L Chloride 106 (98-107) mmol/L Carbon Dioxide 36 H (21-32) mmol/L Anion Gap 3 (3-11) BUN 50 H (6-23) mg/dl Creatinine 1.69 H (0.6-1.2) mg/dl Est Cr Clr Drug Dosing 28.9 ml/min Est GFR ( Amer) 32.2 ml/min Est GFR (Non-Af Amer) 27.8 ml/min BUN/Creatinine Ratio 29.6 H (10-20) Glucose 90 (70-99(Fasting)) mg/dl POC Glucose 83 (70-99) mg/dl Calcium 8.4 L (8.6-10.3) mg/dl Vitamin B12 (180-914) pg/ml Folate (>5.38) ng/ml Procalcitonin (0-0.5) ng/ml Stl C. cayetanensis PCR Stool Rotavirus A PCR Stl Adenov F 40/41 PCR Stool Astrovirus (PCR) Stool Campylobacter PCR Stl C. diff Tox B Gene Stool Cryptosporidium PCR Stl E.coli Shiga Tox PCR Stl Enterotoxigenic E PCR Stool EAEC (PCR) Stl E. histolytica PCR Stool Giardia Lamblia PCR Stool Salmonella PCR Stool Sapovirus (PCR) Stl P. shigelloides PCR Stl Shigella/EIEC PCR St Y.enterocolitica PCR Stool Vibrio (PCR) Stl Vibrio cholerae PCR Stl Norovirus GI/GII PCR 09/07/23 09/07/23 09/07/23 Range/Units 18:07 15:25 15:16 WBC (4.8-10.8) K/ul RBC (4.20-5.40) M/uL Hgb 7.4 L (12.0-16.0) g/dl Hct 23.8 L (37.0-47.0) % MCV (80.0-100.0) fL MCH (25.0-34.0) pg MCHC (32.0-36.0) g/dL RDW Std Deviation (36.4-46.3) fL RDW Coeff of Vanessa (11.5-14.5) % Plt Count (130-400) K/uL MPV (9.4-12.4) fL Neutrophils % (Manual) % Lymphocytes % (Manual) % Monocytes % (Manual) % Eosinophils % (Manual) % Blast Cells % (Manual) % Neutrophils # (Manual) (1.40-6.50) K/uL Total Absolute Neuts (1.4-6.5) K/uL Lymphocytes # (Manual) (1.2-3.4) K/uL Total Abs Lymphocytes (1.2-3.4) K/uL Monocytes # (Manual) (0.11-0.59) K/uL Eosinophils # (Manual) (0-0.50) K/uL Blast Cells # (Man) (0-0) K/uL Microcytosis Sodium (136-145) mmol/L Potassium (3.5-5.1) mmol/L Chloride (98-107) mmol/L Carbon Dioxide (21-32) mmol/L Anion Gap (3-11) BUN (6-23) mg/dl Creatinine (0.6-1.2) mg/dl Est Cr Clr Drug Dosing ml/min Est GFR ( Amer) ml/min Est GFR (Non-Af Amer) ml/min BUN/Creatinine Ratio (10-20) Glucose (70-99(Fasting)) mg/dl POC Glucose (70-99) mg/dl Calcium (8.6-10.3) mg/dl Vitamin B12 217 (180-914) pg/ml Folate 14.97 (>5.38) ng/ml Procalcitonin < 0.05 (0-0.5) ng/ml Stl C. cayetanensis PCR Stool Rotavirus A PCR Stl Adenov F 40/41 PCR Stool Astrovirus (PCR) Stool Campylobacter PCR Stl C. diff Tox B Gene Stool Cryptosporidium PCR Stl E.coli Shiga Tox PCR Stl Enterotoxigenic E PCR Stool EAEC (PCR) Stl E. histolytica PCR Stool Giardia Lamblia PCR Stool Salmonella PCR Stool Sapovirus (PCR) Stl P. shigelloides PCR Stl Shigella/EIEC PCR St Y.enterocolitica PCR Stool Vibrio (PCR) Stl Vibrio cholerae PCR Stl Norovirus GI/GII PCR Diagnostic Findings Abdomen/Pelvis CT 09/07/23 13:[address] WITHOUT CONTRAST CT DOSE: 1240.29 mGy.cm HISTORY: Acute lower abdominal pain with anemia Lower abd pain, anemia, Elevated Creat TECHNIQUE: Multiaxial CT images of the abdomen and pelvis were performed without contrast. A dose lowering technique was utilized adhering to the principles of ALARA. COMPARISON STUDY: 01/09/2015 FINDINGS: Marked cardiomegaly. Pericardial effusion measures up to 2.4 cm, increased in size from prior. Extensive coronary artery calcifications. Small right and trace left pleural effusions. Bibasilar opacities favor atelectasis/scarring. Limited study secondary to respiratory motion, approximately positioning and lack of contrast. Unremarkable spleen, pancreas and right adrenal gland. 1.8 cm left adrenal adenoma. Mildly contracted gallbladder with stone present within the gallbladder neck. Mild pericholecystic stranding. No biliary ductal dilation. Atrophy of the right greater left kidneys with bilateral cortical thinning. 5 mm calcification of the inferior pole right kidney. No ureteral calculi or hydronephrosis identified. Unremarkable urinary bladder with mild wall thickening. Hysterectomy with pelvic floor relaxation. Cystocele and rectocele. Atherosclerosis of aorta. No lymphadenopathy. No bowel obstruction. There is mild nonspecific rectal wall thickening with perirectal stranding. Stents of colonic diverticulosis. No acute diverticulitis. Normal appendix. Small fat filled umbilical hernia. There is a large pannus. Degenerative changes of the spine, pelvis and hips. Multilevel central canal stenosis. IMPRESSION: 1. No bowel obstruction or pneumoperitoneum. 2. There is mild nonspecific rectal wall thickening with perirectal stranding. Correlate clinically to exclude a mild nonspecific proctitis. 3. Cholelithiasis without definite CT evidence of acute cholecystitis. 4. 4 mm calcification of the right kidney. No hydronephrosis. 5. Cardiomegaly with moderate-sized pericardial effusion. Trace left and small right pleural effusions. 6. Additional findings as above. ACT 112: Negative or not required by law. The above report was generated using voice recognition software. It may contain grammatical, syntax or spelling errors. Electronically signed by: Joe Delgadillo M.D. 09/07/2023 2:42 PM Chest X-Ray 09/07/23 14:12 XR chest 1V portable CLINICAL HISTORY: GI bleed. COMPARISON STUDY: Chest radiograph April 15, 2023. Chest CT April 18, 2023. FINDINGS: Enlargement of the cardiac silhouette is similar to prior exam. There is no pneumothorax. Small right and trace left pleural effusions are present. There is no evidence for pulmonary edema. There is no definite consolidation to suggest pneumonia. Right basilar opacity favors atelectasis. Postoperative findings within the cervical spine are incidentally noted. IMPRESSION: 1. Stable enlargement of the cardiac silhouette. No evidence for pulmonary edema. 2. Small right and trace left pleural effusions. Right basilar opacity favors atelectasis. ACT 112: Negative or not required by law. Electronically signed by: Jayden Smiht M.D. 09/07/2023 2:59 PM
[2023-09-08] MEDS ORDERED: traMADol HCL 50 MG TABLET PO PRN (17:05)
[2023-09-08] MEDS: ACETAMINOPHEN 325 MG TAB PO PRN (17:27)
[2023-09-08] MEDS: CYANOCOBALAMIN (B-12) 500 MCG TABLET PO SCH (18:20)
[2023-09-08] MEDS: IRON SUCROSE 200 MG in 0.9 % SODIUM CHLORIDE 100 ML IV SCH (18:21)
[2023-09-08 18:43] LABS: Adenovirus F 40/41 PCR Not Detected (NotDetected); Astrovirus PCR Not Detected (NotDetected); Campylobacter PCR Not Detected (NotDetected); Cryptosporidium PCR Not Detected (NotDetected); Cyclospora cayetanensis PCR Not Detected (NotDetected); Entamoeba histolytica PCR Not Detected (NotDetected); Enteroaggregative E.coli(EAEC) Not Detected (NotDetected); Enteropathogenic E.coli (EPEC) Not Detected (NotDetected); Enterotoxigenic E.coli (ETEC) Not Detected (NotDetected); Giardia lamblia PCR Not Detected (NotDetected); Norovirus GI/GII PCR Not Detected (NotDetected); Plesiomonas shigelloides PCR Not Detected (NotDetected); Rotavirus A PCR Not Detected (NotDetected); Salmonella PCR Not Detected (NotDetected); Sapovirus PCR Not Detected (NotDetected); Shiga-like Toxin E.coli (STEC) Not Detected (NotDetected); Shigella/Enteroinvasive E.coli Not Detected (NotDetected); Vibrio cholerae PCR Not Detected (NotDetected); Vibrio species PCR Not Detected (NotDetected); Yersinia enterocolitica PCR Not Detected (NotDetected)
[2023-09-08] MEDS: LANTUS PER UNIT CHARGE SQ SCH (20:51)
[2023-09-09 06:41] LABS: Albumin Level 3.4 gm/dl (3.4-5.0); Bilirubin,Total 0.4 mg/dl (0.2-1.0); Calcium 8.3 mg/dl (8.6-10.3); Potassium 5.2 mmol/L (3.5-5.1)
[2023-09-09 06:47] LABS: Albumin Globulin Ratio 1.2 (0.9-2); Creatinine Clr Calc Pharmacy 27.8 ml/min; Est GFR (African American) 30.9 ml/min; Est GFR (Non-African American) 26.7 ml/min; Globulin 2.9 gm/dl (2.5-4.0); Total Protein 6.3 gm/dl (6.0-8.3)
--- NOTE | 2023-09-09 07:37 | Hospitalist Progress Note ---
Date of Service September 09, 2023 Assessment & Plan (1) Pancytopenia: Plan: Unknown cause. Hg and WBC normal in april and platelets 108, normal prior to that. B12 217 (notably < 400 in April), folate 14, ferritin, iron studies reviewed and ok, retic count 1.72, peripheral smear with rare blasts Reviewed medlist and fill history. No recent antibiotics listed. lasix and lisinopril could cause pancytopenia but that would be very rare. No splenomegaly on CT, labs and imaging not consistent with advanced cirrhosis CRP elevated perhaps related to proctitis, ESR only 35 and procal was negative. Discussed with pathologist who reviewed blood smear - suspicious for MDS Consulted hematology - discussed with Dr. Archer 09/09 -IR bone marrow biopsy completed today, follow-up pathology -Replacing B12 with 1000 mcg daily, ordered Venofer 200 mg daily x 3 doses, final dose 09/10 -Hemoglobin 7.5 today, other counts improved as well ANC 920 (2) Proctitis: Plan: Seen on admission CT abdomen and pelvis Suspect this is the cause of her abdominal pain. Does not seem to have had recent constipation. Possibly has had diarrhea. Lacks a good explanation for this finding unless it is false positive on CT, stercoral proctitis, or related to her neutropenia CRP 6 and ESR 35 Due to concurrent pancytopenia will cover with ceftriaxone and metronidazole Stool PCR/c. diff PCR were negative - daughter reported diarrhea but patient did not Consulted gastroenterology - reviewed recs in note - no intervention recommended at this time Advance diet as tolerated Seems to be improving (3) Rectal bleeding: Plan: FOB negaitve with brown stool in the ER. Occurring intermittently Likely related to proctitis and apixaban -Has not had bleeding since admission (4) Pericardial effusion: Plan: Known diagnosis. Repeat TTE limited ordered to check for stability - unchanged, only small pericardial effusion without tamponade physiology, normal LV/RV function (5) Pleural effusion: Plan: Small/trivial bilateral, related to heart failure (6) Permanent atrial fibrillation: Plan: Hold apixaban due to anemia and thrombocytopenia with recent rectal bleeding Continue metoprolol for rate control (7) Obstructive sleep apnea of adult: Plan: CPAP HS (8) Type 2 diabetes mellitus: Plan: HbA1C 6.8 in April Home medications Lantus 10 units HS -continue glargine + short acting -BG well-controlled 09/09 (9) Restless legs syndrome: Plan: Continue pramipexole (10) Chronic systolic CHF (congestive heart failure): Plan: Euvolemic Continue routine Lasix dosing Followed in heart failure clinic -cont lasix, metoprolol. lisinopril held for hyperkalemia (11) Chronic respiratory failure with hypoxia: Plan: Baseline 2-3 LPM O2 Aim O2 > 90% (12) Acute blood loss anemia: Plan Mild hyperkalemia - K 5.2, hold lisinopril, patiromer x 1 dose, AM BMP VTE Prophylaxis - SCDs, chemoppx deferred due to anemia, rectal bleeding Dispo - lives with her who was just discharged from hospital to [facility] today. daughter lives nearby updated her daughter at bedside 09/08, 09/09 Admission and Anticipated Discharge Date Admission Date: September 07, 2023 Subjective Abdominal and back pain improved, had several loose stools this afternoon per nursing, tolerating general diet no nausea or vomiting Dyspnea at rest and with exertion remains at baseline Physical Exam 2 Physical Exam: PHYSICAL EXAMINATION Last 24h vital signs reviewed, see documentation in flowsheet General: Sitting up in the chair HEENT: Normocephalic, atraumatic, pupils round and equal, sclerae anicteric, no conjunctival injection, moist mucus membranes Lungs: Mildly increased work of breathing at rest. Clear bilaterally anteriorly, posteriorly scattered coarse crackles in both bases no wheezing - unchanged today Heart: Regular rate and rhythm, no murmurs. No JVD Abdomen: Soft, nontender, nondistended. no rrg Bowel sounds present. Extremities: Warm, dry, well-perfused. No extremity edema. Neuro: Alert and oriented x 4, face symmetric, moves 4 extremities well. Has some mild asterixis Psych: Normal affect and behavior Results & Data Results & Data Vital Signs (Past 12 Hours) Vital Signs Temp Pulse Resp BP BP Pulse Ox O2 Del Method 09/09/23 07:25 83 20 93 Nasal Cannula 09/09/23 04:14 36.9 C 74 18 109/69 94 BiPAP 09/08/23 23:45 Nasal Cannula 09/08/23 23:27 81 20 92 Nasal Cannula 09/08/23 22:28 36.8 C 78 18 111/70 92 Nasal Cannula 09/08/23 19:53 81 18 99 Nasal Cannula 09/08/23 19:42 37.1 C 77 18 100/57 L 99 Nasal Cannula O2 Flow Rate 09/09/23 07:25 3 09/09/23 04:14 09/08/23 23:45 3 09/08/23 23:27 4 09/08/23 22:28 6 09/08/23 19:53 6 09/08/23 19:42 6 Laboratory Results 09/09/23 05:57 09/09/23 05:57 PG Care Time/CCT Total # of Minutes Spent Total Time Spent with Patient: Total time spent is greater than 50% in coordination of care (as documented) at patient's floor/unit and/or counseling patient: Coding Level of Care Code 79676 SUB INP/OBS CARE 2/35MIN Diagnoses Pancytopenia D61.818 Proctitis K62.89 Rectal bleeding K62.5 Pericardial effusion I31.39 Pleural effusion J90 Permanent atrial fibrillation I48.21 Obstructive sleep apnea of adult G47.33 Type 2 diabetes mellitus E11.9 Restless legs syndrome G25.81 Chronic systolic CHF (congestive heart failure) I50.22 Chronic respiratory failure with hypoxia J96.11 Acute blood loss anemia D62
[2023-09-09 07:50] LABS: Hematocrit (blood only) 22.9 % (37.0-47.0); Hemoglobin 7.5 g/dl (12.0-16.0); Mean Corpuscular Hemoglobin 37.1 pg (25.0-34.0); Mean Corpuscular Hgb Conc 32.8 g/dL (32.0-36.0); Mean Corpuscular Volume 113.4 fL (80.0-100.0); Mean Platelet Volume 11.4 fL (9.4-12.4); Nucleated RBC # (auto) 0.08 K/uL (0.00-0.12); Nucleated RBC % (auto) 3.8 %; Platelet Count 77 K/uL (130-400); RDW Standard Deviation 61.6 fL (36.4-46.3); Red Blood Count 2.02 M/uL (4.20-5.40); White Blood Count 2.09 K/ul (4.8-10.8)
[2023-09-09 08:51] LABS: ALC (manual) 0.92 K/uL (1.2-3.4); ANC (manual) 0.92 K/uL (1.4-6.5); Blast # (manual) 0.04 K/uL (0-0); Blast Cells % (manual) 2 %; Bone Marrow Smear SLHOLD; Eosinophils # (manual) 0.02 K/uL (0-0.50); Eosinophils % (manual) 1 %; Lymphocytes # (manual) 0.92 K/uL (1.2-3.4); Lymphocytes % (manual) 44 %; Macrocytosis Present; Monocytes # (manual) 0.19 K/uL (0.11-0.59); Monocytes % (manual) 9 %; Neutrophils # (manual) 0.92 K/uL (1.40-6.50); Neutrophils % (manual) 44 %; Ovalocytes 1+; Polychromasia 1+; Tear Drop Cells 1+
[2023-09-09] MEDS: LORazepam 1 MG TAB SL STA (09:19)
[2023-09-09] MEDS: ACETAMINOPHEN 1000 MG/100 ML IV IV ONE (10:24)
--- NOTE | 2023-09-09 13:46 | CT Scan Report ---
CT-GUIDED BONE MARROW BIOPSY CLINICAL HISTORY: Pancytopenia PROCEDURE: Procedure and risks were explained. Informed consent was obtained. A final timeout was com pleted. Patient was placed prone on the CT exam table. The left gluteal region was prepped and draped in sterile fashion. 1% buffered lidocaine was utilized for skin anesthesia. The patient received 1 g Tylenol IV. Utilizing CT guidance, an 11-gauge bone biopsy needle was advanced into the left iliac bone. Multiple aspirates and one bone core was obtained and given to the lab. The needle was removed and Band-Aid a pplied. The patient tolerated the procedure well. Vital signs will be monitored postprocedure. IMPRESSION: Bone marrow biopsy as above. Performed, dictated, and signed by Momo Flores PA-C; to be co-signed by Dr. Jayden Smith. Electronically signed by: Jayden Smith M.D. 09/09/2023 2:29 PM
--- NOTE | 2023-09-09 13:48 | Gastroenterology Progress Note ---
Date of Service September 09, 2023 Assessment & Plan (1) Abdominal pain: Plan: After closer questioning I wonder if her pain isn't from her back and not from her belly. It is not proctitis causing abdominal pain because proctitis does not cause abdominal pain. I doubt she has proctitis as there has been no blood in her stools and she is not having diarrhea. I don't plan evaluation unless things change and her WBC normalizes Admission and Anticipated Discharge Date Admission Date: September 07, 2023 Subjective Sitting comfortably, eating. Had bone marrow earlier today. Tells me that her pain is really from her back and radiates to her front. She doesn't think it is belly pain. She says it hurts to cough Physical Exam Physical Exam: She looks comfortable Constitutional: WD/WN, vitals as above Results & Data Vital Signs (Past 12 Hours) Vital Signs Temp Pulse Resp BP Pulse Ox O2 Del Method O2 Flow Rate 09/09/23 11:42 36.9 C 77 16 93/57 L 97 Oxymask 5 09/09/23 10:58 81 20 99 Oxymask 9 09/09/23 08:37 36.9 C 98 H 18 119/79 94 Nasal Cannula 3 09/09/23 07:25 83 20 93 Nasal Cannula 3 09/09/23 04:14 36.9 C 74 18 109/69 94 BiPAP
[2023-09-09] MEDS: fentaNYL citrate PF 100 MCG/2 ML VIAL ONE (17:03)
[2023-09-09] MEDS: PATIROMER CALCIUM SORBITEX 8.4 GM PACK PO ONE (21:15)
--- NOTE | 2023-09-10 00:43 | Communication Note ---
Date of Service: September 10, 2023 Report per nursing that pt had increased dyspnea, increased oxygen requirement from 4L to 6L, also with significant anxiety. Went up to see patient and she was sitting on side of breathing, no increased work of breathing. Daughter was on the phone. Per nursing looks much better than prior. Lungs with same faint end expiratory wheezing. Denies chest pain. Noted that hemoglobin as been low, but stable in the 7s, will move up morning labs and obtain CBC and BMP now. Repeat CXR. Maribel ordered, last at 1930, will repeat now.
[2023-09-10 01:49] LABS: BUN Creatinine Ratio 23.8 (10-20); Calcium 8.5 mg/dl (8.6-10.3); Creatinine Clr Calc Pharmacy 21.8 ml/min; Est GFR (Non-African American) 19.9 ml/min; Potassium 5.6 mmol/L (3.5-5.1)
[2023-09-10] MEDS: ALBUT/IPRATROP 3MG/0.5MG NEB 3 ML VIAL NEB STA (01:54)
[2023-09-10 02:06] LABS: Hematocrit (blood only) 22.7 % (37.0-47.0); Mean Corpuscular Hemoglobin 36.3 pg (25.0-34.0); Mean Corpuscular Hgb Conc 30.8 g/dL (32.0-36.0); Mean Corpuscular Volume 117.6 fL (80.0-100.0); Mean Platelet Volume 11.2 fL (9.4-12.4); Nucleated RBC # (auto) 0.06 K/uL (0.00-0.12); Nucleated RBC % (auto) 2.8 %; Platelet Count 76 K/uL (130-400); RDW Standard Deviation 64.9 fL (36.4-46.3); Red Blood Count 1.93 M/uL (4.20-5.40); White Blood Count 2.16 K/ul (4.8-10.8)
[2023-09-10 02:37] LABS: Eosinophils # (auto) 0.01 K/uL (0.00-0.50); Eosinophils % (auto) 0.5 %; Immature Granulocytes # (auto) 0.01 K/uL (0.01-0.20); Immature Granulocytes % (auto) 0.5 %; Lymphocytes # (auto) 0.51 K/uL (1.20-3.40); Lymphocytes % (auto) 23.6 %; Macrocytosis Present; Monocytes # (auto) 0.63 K/uL (0.11-0.59); Monocytes % (auto) 29.2 %; Neutrophils % (auto) 46.2 %; Polychromasia 1+; Target Cells 1+
[2023-09-10 06:23] LABS: Hematocrit (blood only) 21.9 % (37.0-47.0); Hemoglobin 6.8 g/dl (12.0-16.0); Mean Corpuscular Hemoglobin 36.4 pg (25.0-34.0); Mean Corpuscular Hgb Conc 31.1 g/dL (32.0-36.0); Mean Corpuscular Volume 117.1 fL (80.0-100.0); Mean Platelet Volume 10.8 fL (9.4-12.4); Nucleated RBC # (auto) 0.06 K/uL (0.00-0.12); Nucleated RBC % (auto) 2.6 %; Platelet Count 74 K/uL (130-400); RDW Coefficient of Variation 14.9 % (11.5-14.5); RDW Standard Deviation 63.7 fL (36.4-46.3); Red Blood Count 1.87 M/uL (4.20-5.40); White Blood Count 2.29 K/ul (4.8-10.8)
[2023-09-10 06:27] LABS: Albumin Globulin Ratio 1.2 (0.9-2); Albumin Level 3.2 gm/dl (3.4-5.0); BUN Creatinine Ratio 28.5 (10-20); Bilirubin,Total 0.3 mg/dl (0.2-1.0); Calcium 8.5 mg/dl (8.6-10.3); Est GFR (African American) 25.2 ml/min; Est GFR (Non-African American) 21.8 ml/min; Globulin 2.7 gm/dl (2.5-4.0); Potassium 5.5 mmol/L (3.5-5.1); Total Protein 5.9 gm/dl (6.0-8.3)
[2023-09-10 06:39] LABS: Appearance Urine Cloudy (Clear); Bacteria Urine Automated Negative (Negative); Bilirubin Urine Negative (Negative); Blood Urine Negative (Negative); Color Urine Dark Yellow; Epithelial Cell Urine Auto >30 /lpf (0-5); Glucose Urine UA Negative (Negative); Ketones Urine Negative (Negative); Leukocyte Esterase Urine Negative (Negative); Nitrite Urine Negative (Negative); Protein Urine Trace (Negative); RBC Urine Automated 0-4 /hpf (0-4); Specific Gravity Urine 1.021 (1.000-1.030); Urobilinogen Urine Negative (Negative)
[2023-09-10] MEDS ORDERED: SODIUM CHLORIDE 0.9% 250 ML IV PRN (06:54)
[2023-09-10 06:56] LABS: RBC Morphology Unremarkable
--- NOTE | 2023-09-10 06:58 | XRay Report ---
SINGLE VIEW CHEST CLINICAL HISTORY: Dyspnea FINDINGS: An AP, portable, upright chest radiograph is compared to study dated 09/07/2023 and correlate d with chest CT dated 04/18/2023. The examination is degraded by portable technique and apical lordoti c positioning. The heart is enlarged noting atherosclerotic calcification of the thoracic aorta. Ther e is pulmonary vascular congestion. There are small pleural effusions with dependent consolidation. N o pneumothorax is seen. The skeletal structures are osteopenic. Chronic deformity of left-sided ribs is unchanged. Fusion hardware is seen in the lower cervical spine. IMPRESSION: 1. Cardiomegaly with pulmonary vascular congestion. 2. Small pleural effusions with dependent sedation. ACT 112: Negative or not required by law. Electronically signed by: Ashkan Armstrong M.D. 09/10/2023 6:57 AM
[2023-09-10 07:11] LABS: Basophils # (auto) 0.01 K/uL (0.00-0.20); Basophils % (auto) 0.4 %; Immature Granulocytes # (auto) 0.02 K/uL (0.01-0.20); Immature Granulocytes % (auto) 0.9 %; Lymphocytes # (auto) 0.64 K/uL (1.20-3.40); Lymphocytes % (auto) 27.9 %; Monocytes # (auto) 0.64 K/uL (0.11-0.59); Monocytes % (auto) 27.9 %; Neutrophils # (auto) 0.98 K/uL (1.40-6.50); Neutrophils % (auto) 42.9 %
[2023-09-10] MEDS: PATIROMER CALCIUM SORBITEX 8.4 GM PACK PO SCH (08:45)
--- NOTE | 2023-09-10 16:59 | Hospitalist Progress Note ---
Date of Service September 10, 2023 Assessment & Plan (1) Pancytopenia: Plan: Unknown cause. Hg and WBC normal in april and platelets 108, normal prior to that. B12 217 (notably < 400 in April), folate 14, ferritin, iron studies reviewed and ok, retic count 1.72, peripheral smear with rare blasts Reviewed medlist and fill history. No recent antibiotics listed. lasix and lisinopril could cause pancytopenia but that would be very rare. No splenomegaly on CT, labs and imaging not consistent with advanced cirrhosis CRP elevated perhaps related to proctitis, ESR only 35 and procal was negative. Discussed with pathologist who reviewed blood smear - suspicious for MDS Consulted hematology - discussed with Dr. Archer 09/09 -IR bone marrow biopsy completed 09/09, follow-up pathology -Replacing B12 with 1000 mcg daily, ordered Venofer 200 mg daily x 3 doses, final dose 09/10 Transfusing 1 unit for symptomatic anemia (increased dyspnea and hypoxia) with Hbg 6.5, consider another unit tomorrow for goal of 8.0 with her comorbidities and chronic hypoxia -likely to need extra dose of lasix with the blood but BP has been marginal today (2) Proctitis: Plan: Seen on admission CT abdomen and pelvis Suspect this is the cause of her abdominal pain. Does not seem to have had recent constipation. Possibly has had diarrhea. Lacks a good explanation for this finding unless it is false positive on CT, stercoral proctitis, or related to her neutropenia CRP 6 and ESR 35 Due to concurrent pancytopenia will cover with ceftriaxone and metronidazole Stool PCR/c. diff PCR were negative - daughter reported diarrhea but patient did not Consulted gastroenterology - reviewed recs in note - no intervention recommended at this time Tolerating general diet Today did endorse some back pain for first time. compression fracture of lower Tspine could cause pain radiating around abnomen. -will obtain xray T and L spine (3) Chronic systolic CHF (congestive heart failure): Plan: Acute on chronic systolic heart failure - suspect exacerbation to account for increased hypoxia Continue routine Lasix dosing - BP marginal, will dose with IV lasix as needed / when tolerated Followed in heart failure clinic -cont lasix, metoprolol. lisinopril held for hyperkalemia (4) Rectal bleeding: Plan: FOB negaitve with brown stool in the ER. Occurring intermittently Likely related to proctitis and apixaban -had blood in stool today per her daughter (5) Pericardial effusion: Plan: Known diagnosis. Repeat TTE limited ordered to check for stability - unchanged, only small pericardial effusion without tamponade physiology, normal LV/RV function (6) Pleural effusion: Plan: Small/trivial bilateral, related to heart failure (7) Permanent atrial fibrillation: Plan: Hold apixaban due to anemia and thrombocytopenia with recent rectal bleeding Continue metoprolol for rate control (8) Obstructive sleep apnea of adult: Plan: CPAP HS (9) Type 2 diabetes mellitus: Plan: HbA1C 6.8 in April Home medications Lantus 10 units HS -continue glargine + short acting -BG well-controlled 09/10 (10) Restless legs syndrome: Plan: Continue pramipexole (11) Chronic respiratory failure with hypoxia: Plan: Baseline 2-3 LPM O2 Aim O2 > 90% (12) Acute blood loss anemia: Plan: caused by rectal bleeding Plan hyperkalemia - persists - K 5.5, hold lisinopril, patiromer 09/09, 09/10, AM BMP confusion - daughter reports poor short term memory and poor insight/judgment, worse at night, consistent with dementia -was a little more confused midmorning, but better in afternoon today - is in SNF since this week and also has memory problems -sounds unsafe to be home alone -PT/OT pending VTE Prophylaxis - SCDs, chemoppx deferred due to anemia, rectal bleeding Dispo - lives with her who was just discharged from hospital to [facility]. daughter lives nearby. PT/OT pending probable to require SNF stay updated her daughter at bedside 09/08, 09/09, 09/10 Admission and Anticipated Discharge Date Admission Date: September 07, 2023 Subjective increased shortness of breath overnight, evaluated by resident, CXR with pulmonary edema, Hgb 6.5 so transfusion ordered seen 2x today. midmorning was dyspneic at rest, was confused midafternoon dyspnea improved, family visiting, was more oriented daughter reports she has poor short term memory and forgets to take meds at times having loose stools. pain radiating around to mid-abdomen unchanged, did endorse back pain for the first time Physical Exam 2 Physical Exam: PHYSICAL EXAMINATION Last 24h vital signs reviewed, see documentation in flowsheet General: sitting on EOB HEENT: Normocephalic, atraumatic, pupils round and equal, sclerae anicteric, no conjunctival injection, moist mucus membranes Lungs: increased work of breathing at rest. diminished both bases with some scant crackles R base, no wheeze Heart: Regular rate and rhythm, no murmurs. No JVD Abdomen: Soft, nontender, nondistended. no rrg Bowel sounds present. T and L spine nontender Extremities: Warm, dry, well-perfused. No extremity edema. Neuro: Alert and oriented x hospital but made some confused statements in AM, face symmetric, moves 4 extremities well. Has some mild asterixis Psych: Normal affect and behavior Results & Data Results & Data Vital Signs (Past 12 Hours) Vital Signs Temp Pulse Pulse Resp BP BP Pulse Ox 09/10/23 14:45 72 20 98 09/10/23 11:32 37.4 C 101 H 22 99/48 L 09/10/23 11:18 09/10/23 11:16 104 H 26 H 94 09/10/23 11:02 36.9 C 103 H 24 124/78 89 L 09/10/23 10:47 36.9 C 91 H 24 107/78 99 09/10/23 10:22 37.1 C 103 H 24 107/58 L 100 09/10/23 09:28 90 09/10/23 07:53 37.0 C 109 H 16 103/50 L 93 09/10/23 07:38 22 L 18 98 O2 Del Method O2 Flow Rate 09/10/23 14:45 Nasal Cannula 09/10/23 11:32 5 09/10/23 11:18 Nasal Cannula 4 09/10/23 11:16 Nasal Cannula 5 09/10/23 11:02 5 09/10/23 10:47 7 09/10/23 10:22 7 09/10/23 09:28 09/10/23 07:53 Nasal Cannula 4.5 09/10/23 07:38 Nasal Cannula 3 Laboratory Results 09/10/23 05:44 09/10/23 05:44 Coding Level of Care Code 76525 SUB INP/OBS CARE 3/50MIN Diagnoses Pancytopenia D61.818 Proctitis K62.89 Chronic systolic CHF (congestive heart failure) I50.22 Rectal bleeding K62.5 Pericardial effusion I31.39 Pleural effusion J90 Permanent atrial fibrillation I48.21 Obstructive sleep apnea of adult G47.33 Type 2 diabetes mellitus E11.9 Restless legs syndrome G25.81 Chronic respiratory failure with hypoxia J96.11 Acute blood loss anemia D62
--- NOTE | 2023-09-10 19:59 | XRay Report ---
LUMBAR SPINE 3 VIEWS CLINICAL HISTORY: Low back pain. FINDINGS: 3 views of the lumbar spine are correlated with abdominal CT dated 09/07/2023. The skeletal s tructures are osteopenic. There is no radiographic evidence of fracture or malalignment. Vertebral lalitha dy height and alignment are maintained throughout the lumbar spine. Large anterior and lateral margin al osteophytes are seen throughout. The transverse and spinous processes appear intact. Mild dextrocu rvature is centered at L4. [id number] disc space narrowing is seen at all lumbar levels with multilevel vacuum phenomenon and endplate sclerosis. Posterior disc osteophyte complexes are seen at all lumbar levels. The visualized bony pelvis appears intact. Degenerative sclerosis is noted in the sacroiliac joints. A calcified gallstone is seen in the right upper quadrant. There are pelvic phlebo liths. Advanced atherosclerotic calcification is noted in the abdominal aorta. No bowel obstruction i s seen. IMPRESSION: 1. No acute bony abnormality is seen involving the lumbar spine. 2. Osteopenia with advanced lumbosacral spondylosis and scoliosis as above. Dictated: 09/10/2023 5:55 PM Transcribed: 09/10/2023 7:51 PM Jax [id number] [email or web address] Electronically signed by: Ashkan Armstrong M.D. 09/10/2023 7:58 PM
--- NOTE | 2023-09-10 19:59 | XRay Report ---
THORACIC SPINE 3 VIEWS CLINICAL HISTORY: Thoracic back pain. FINDINGS: AP, lateral, and swimmer's views of the thoracic spine are correlated with chest CT dated . The skeletal structures are osteopenic. There is no radiographic evidence of fracture or ma lalignment. Vertebral body height and alignment are maintained throughout the thoracic spine. Large a nterior and lateral marginal osteophytes are seen throughout. The transverse processes and pedicles a re grossly intact as seen on the AP view. Spondylotic and postsurgical changes are noted in the lower cervical spine. There is multilevel degenerative disc space narrowing and endplate sclerosis is seen throughout the thoracic region. The heart is enlarged noting atherosclerotic calcification of the th oracic area. Fibrotic change is noted at the right lung base. IMPRESSION: 1. No acute bony abnormality is seen involving the thoracic spine. 2. Osteopenia and degenerative change as above. Dictated: 09/10/2023 5:57 PM Transcribed: 09/10/2023 7:54 PM Jax [id number] [email or web address] Electronically signed by: Ashkan Armstrong M.D. 09/10/2023 7:58 PM
[2023-09-10 23:05] LABS: Base Excess ABG 4.8 mEq/L (-9-1.8); HCO3 ABG 34 mmol/L (19-24); Oxygen Saturation ABG 94.7 % (90-95); PCO2 ABG 70 mmHg (35-46); PO2 ABG 69 mmHg (80-95); pH ABG 7.29 (7.35-7.45)
[2023-09-10 23:06] LABS: Allen Test Pos (Pos)
[2023-09-10 23:20] LABS: Hematocrit (blood only) 25.4 % (37.0-47.0); Hemoglobin 7.9 g/dl (12.0-16.0); Mean Corpuscular Hemoglobin 34.6 pg (25.0-34.0); Mean Corpuscular Hgb Conc 31.1 g/dL (32.0-36.0); Mean Corpuscular Volume 111.4 fL (80.0-100.0); Mean Platelet Volume 11.8 fL (9.4-12.4); Nucleated RBC # (auto) 0.06 K/uL (0.00-0.12); Nucleated RBC % (auto) 2.3 %; Platelet Count 75 K/uL (130-400); RDW Coefficient of Variation 20.3 % (11.5-14.5); RDW Standard Deviation 82.6 fL (36.4-46.3); Red Blood Count 2.28 M/uL (4.20-5.40); White Blood Count 2.58 K/ul (4.8-10.8)
[2023-09-10 23:29] LABS: BUN Creatinine Ratio 29.4 (10-20); Calcium 8.6 mg/dl (8.6-10.3); Creatinine Clr Calc Pharmacy 23.6 ml/min; Est GFR (African American) 24.6 ml/min; Est GFR (Non-African American) 21.3 ml/min; Potassium 5.4 mmol/L (3.5-5.1)
[2023-09-11 00:59] LABS: Anisocytosis Present; Basophils # (auto) 0.01 K/uL (0.00-0.20); Basophils % (auto) 0.4 %; Immature Granulocytes # (auto) 0.04 K/uL (0.01-0.20); Immature Granulocytes % (auto) 1.6 %; Lymphocytes # (auto) 0.55 K/uL (1.20-3.40); Lymphocytes % (auto) 21.3 %; Monocytes # (auto) 0.85 K/uL (0.11-0.59); Monocytes % (auto) 32.9 %; Neutrophils # (auto) 1.13 K/uL (1.40-6.50); Neutrophils % (auto) 43.8 %
[2023-09-11 06:46] LABS: Hematocrit (blood only) 25.3 % (37.0-47.0); Hemoglobin 7.9 g/dl (12.0-16.0); Mean Corpuscular Hemoglobin 34.5 pg (25.0-34.0); Mean Corpuscular Hgb Conc 31.2 g/dL (32.0-36.0); Mean Corpuscular Volume 110.5 fL (80.0-100.0); Mean Platelet Volume 11.4 fL (9.4-12.4); Nucleated RBC # (auto) 0.05 K/uL (0.00-0.12); Nucleated RBC % (auto) 2.2 %; Platelet Count 74 K/uL (130-400); RDW Coefficient of Variation 19.9 % (11.5-14.5); RDW Standard Deviation 81.1 fL (36.4-46.3); Red Blood Count 2.29 M/uL (4.20-5.40); White Blood Count 2.28 K/ul (4.8-10.8)
[2023-09-11 06:58] LABS: BUN Creatinine Ratio 29.9 (10-20); Calcium 8.7 mg/dl (8.6-10.3); Creatinine Clr Calc Pharmacy 24.9 ml/min; Est GFR (African American) 26.1 ml/min; Est GFR (Non-African American) 22.5 ml/min; Potassium 5.2 mmol/L (3.5-5.1)
[2023-09-11 07:40] LABS: ALC (manual) 0.66 K/uL (1.2-3.4); Anisocytosis Present; Blast # (manual) 0.05 K/uL (0-0); Blast Cells % (manual) 2 %; Lymphocytes # (manual) 0.66 K/uL (1.2-3.4); Lymphocytes % (manual) 29 %; Macrocytosis Present; Metamyelocytes # (manual) 0.02 K/uL (0-0); Metamyelocytes % (manual) 1 %; Monocytes # (manual) 0.25 K/uL (0.11-0.59); Monocytes % (manual) 11 %; Neutrophils % (manual) 57 %; Ovalocytes 1+; Polychromasia 1+; Tear Drop Cells 1+
--- NOTE | 2023-09-11 10:36 | Gastroenterology Progress Note ---
Date of Service September 11, 2023 Assessment & Plan (1) Proctitis: Plan: I would continue to hold off on any endoscopic testing with her respiratory status for now unless it becomes emergent. Will follow Admission and Anticipated Discharge Date Admission Date: September 07, 2023 Subjective patient asleep on rounds so didn't disturb. Still with some difficulty breathing while asleep. Thoracic and lumbar films not revealing. H/H are stable Physical Exam Physical Exam: Asleep with mild respiratory difficulty Constitutional: WD/WN, vitals as above Results & Data Vital Signs (Past 12 Hours) Vital Signs Temp Pulse Resp BP BP Pulse Ox O2 Del Method 09/11/23 10:22 100 H 22 91 Oxymask 09/11/23 09:00 Nasal Cannula 09/11/23 08:04 36.9 C 70 16 137/76 97 Room Air 09/11/23 07:02 86 20 92 CPAP 09/11/23 03:24 36.9 C 95 H 20 126/68 92 CPAP 09/10/23 23:41 36.9 C 85 20 100/62 91 CPAP O2 Flow Rate 09/11/23 10:22 5 09/11/23 09:00 5 09/11/23 08:04 09/11/23 07:02 5 09/11/23 03:24 5 09/10/23 23:41 5
[2023-09-11 12:20] LABS: Base Excess VBG 2.4 mEq/L; HCO3 VBG 31 mmol/L; Oxygen Saturation VBG 74.3 %; PCO2 VBG 64 mmHg (38-50); PO2 VBG 47 mmHg; pH VBG 7.29 (7.36-7.41)
--- NOTE | 2023-09-11 16:31 | Hospitalist Progress Note ---
Date of Service September 11, 2023 Assessment & Plan (1) Acute respiratory failure with hypoxia and hypercapnia: Plan: Acute on chronic respiratory failure with hypoxia and hypercarbia Underlying COPD, LEDA/OHS. Typically on 3L O2 and nighttime CPAP Hypercarbic on abg overnight, persists on vbg today with mild acidosis, laboring, mental status changes and asterixis Has continued to slowly deteriorate last 48h. Had 5d ceftriaxone and no evidence of pneumonia. Not wheezing. CHF also playing a role but not severely volume overloaded -trial of bipap, transfer to PCU -started prednisone 40 mg daily x 5d for COPD, continue bronchodilators -diuresis if tolerated - lasix 20 mg IV x 1 -hold sedating meds: tramadol, gabapentin, lorazepam discussed with her daughters at bedside. Trial of bipap reasonable. If she tolerates well could consider evaluation to see if she needs chronically. She would not want escalation to ICU level care for aggressive/invasive measures, wouldn't want intubation, CPR. They would prefer comfort measures if she worsened to that point. (2) Pancytopenia: Plan: Unknown cause. Hg and WBC normal in april and platelets 108, normal prior to that. B12 217 (notably < 400 in April), folate 14, ferritin, iron studies reviewed and ok, retic count 1.72, peripheral smear with rare blasts Reviewed medlist and fill history. No recent antibiotics listed. lasix and lisinopril could cause pancytopenia but that would be very rare. No splenomegaly on CT, labs and imaging not consistent with advanced cirrhosis CRP elevated perhaps related to proctitis, ESR only 35 and procal was negative. Discussed with pathologist who reviewed blood smear - suspicious for MDS Consulted hematology - discussed with Dr. Archer 09/09 -IR bone marrow biopsy completed 09/09, follow-up pathology -Replacing B12 with 1000 mcg daily, Venofer 200 mg daily x 3 doses completed Transfused 1 unit for symptomatic anemia 09/10 (3) Proctitis: Plan: Seen on admission CT abdomen and pelvis, unclear significance. Had loose stools this admission and C. diff and stool biofire negative. Completed 5d ceftriaxone and metronidazole because neutropenic. Airplane Technician consulted, thinks proctitis unlikely She has had some bloody stools despite apixaban being held and she has risk factors for ischemic colitis CRP 6 and ESR 35 Tolerating general diet, monitor (4) Back pain of thoracolumbar region: (5) Chronic systolic CHF (congestive heart failure): Plan: Acute on chronic systolic heart failure Followed in heart failure clinic -cont lasix, metoprolol. lisinopril held for hyperkalemia -lasix 20 mg IV x 1 (6) Pericardial effusion: Plan: Known diagnosis. Repeat TTE limited ordered to check for stability - unchanged, only small pericardial effusion without tamponade physiology, normal LV/RV function (7) Pleural effusion: Plan: Small/trivial bilateral, related to heart failure (8) Permanent atrial fibrillation: Plan: Hold apixaban due to anemia and thrombocytopenia with recent rectal bleeding Continue metoprolol for rate control (9) Obstructive sleep apnea of adult: Plan: has home CPAP, see above (10) Type 2 diabetes mellitus: Plan: HbA1C 6.8 in April Home medications Lantus 10 units HS -continue glargine + short acting -BG well-controlled 09/11 (11) Restless legs syndrome: Plan: Continue pramipexole (12) Chronic respiratory failure with hypoxia: Plan: Baseline 2-3 LPM O2 Aim O2 88-92%% (13) Acute blood loss anemia: Plan: caused by rectal bleeding, also with bone marrow failure Plan hyperkalemia - persists - K 5.2, hold lisinopril, patiromer 09/09, 09/10, 09/11, AM BMP ordered -also lasix confusion - daughter reports poor short term memory and poor insight/judgment, worse at night, consistent with dementia -worsened due to hypercarbia but there is chronic component - is in SNF since this week and also has memory problems -sounds unsafe to be home alone -PT/OT pending VTE Prophylaxis - SCDs, chemoppx deferred due to anemia, rectal bleeding Dispo - lives with her who was just discharged from hospital to [facility]. daughter lives nearby. PT/OT - has recommended ongoing rehab and SNF stay updated her daughter at bedside 09/08, 09/09, 09/10, 09/11 Admission and Anticipated Discharge Date Admission Date: September 07, 2023 Subjective seen twice today - in am confused and short of breath, in afternoon with daughters more oriented, remains short of breath, continues to have pain radiating around mid/lower body wall unchanged from previous Physical Exam 2 Physical Exam: PHYSICAL EXAMINATION Last 24h vital signs reviewed, see documentation in flowsheet General: sitting on EOB HEENT: Normocephalic, atraumatic, pupils round and equal, sclerae anicteric, no conjunctival injection, moist mucus membranes Lungs: dyspneic and using accessory muscles to breathe. diminished both bases with crackles L base and mid, R base, no wheeze Heart: Regular rate and rhythm, no murmurs. No JVD Abdomen: Soft, nontender, nondistended. no rrg Bowel sounds present. Extremities: Warm, dry, well-perfused. 1+ extremity edema. Neuro: Alert and oriented x hospital self daughters but confusion present, +asterixis, face symmetric, moves 4 extremities well. Psych: Normal affect and behavior Results & Data Results & Data Vital Signs (Past 12 Hours) Vital Signs Temp Pulse Resp BP Pulse Ox O2 Del Method O2 Flow Rate 09/11/23 14:58 88 20 93 Nasal Cannula 09/11/23 12:08 37.1 C 97 H 16 129/72 92 Oxymask 2.5 09/11/23 10:22 100 H 22 91 Oxymask 5 09/11/23 09:00 Nasal Cannula 5 09/11/23 08:04 36.9 C 70 16 137/76 97 Room Air 09/11/23 07:02 86 20 92 CPAP 5 Laboratory Results 09/11/23 06:06 09/11/23 06:06 PG Care Time/CCT Total # of Minutes Spent Total Time Spent with Patient: Total time spent is greater than 50% in coordination of care (as documented) at patient's floor/unit and/or counseling patient: Coding Level of Care Code 12704 SUB INP/OBS CARE 3/50MIN Diagnoses Acute respiratory failure with hypoxia and hypercapnia J96.01; J96.02 Pancytopenia D61.818 Proctitis K62.89 Back pain of thoracolumbar region M54.50; M54.6 Chronic systolic CHF (congestive heart failure) I50.22 Pericardial effusion I31.39 Pleural effusion J90 Permanent atrial fibrillation I48.21 Obstructive sleep apnea of adult G47.33 Type 2 diabetes mellitus E11.9 Restless legs syndrome G25.81 Chronic respiratory failure with hypoxia J96.11 Acute blood loss anemia D62
[2023-09-11] MEDS: FUROSEMIDE INJ 20 MG/2 ML VIAL IV ONE (17:48)
[2023-09-11] MEDS: predniSONE 20 MG TAB PO SCH (17:51)
[2023-09-11] MEDS: LORazepam 1 MG TAB PO PRN (22:55)
[2023-09-12 08:07] LABS: Calcium 8.7 mg/dl (8.6-10.3); Creatinine Clr Calc Pharmacy 26.9 ml/min; Est GFR (African American) 28.7 ml/min; Est GFR (Non-African American) 24.8 ml/min; Potassium 5.1 mmol/L (3.5-5.1)
--- NOTE | 2023-09-12 17:13 | Hospitalist Progress Note ---
Date of Service September 12, 2023 Assessment & Plan (1) Acute respiratory failure with hypoxia and hypercapnia: Plan: Acute on chronic respiratory failure with hypoxia and hypercarbia Underlying COPD, LEDA/OHS. Typically on 3L O2 and nighttime CPAP Hypercarbic with mild acidosis, laboring, mental status changes and asterixis Has continued to slowly deteriorate though slightly better today. Had 5d ceftriaxone and no evidence of pneumonia. Not wheezing. CHF also playing a role but not severely volume overloaded -trial of bipap, transfered to PCU. Used bipap very little overnight, pulled it off, was placed on high flow which was likely counterproductive. O2 sat goal reiterated 88-92% -started prednisone 40 mg daily x 5d for COPD, continue bronchodilators -diuresis if tolerated - lasix 20 mg IV x 1 given 09/11. oral diuretics today -held sedating meds: tramadol, gabapentin, lorazepam discussed with her daughters at bedside. Trial of bipap reasonable. If she tolerates well could consider evaluation to see if she needs chronically. She would not want escalation to ICU level care for aggressive/invasive measures, wouldn't want intubation, CPR. They would prefer comfort measures if she worsened to that point. -unfortunately tolerating bipap poorly. only slight improvement today -ordered AM CBC BMP and vbg (2) Pancytopenia: Plan: Unknown cause. Hg and WBC normal in april and platelets 108, normal prior to that. B12 217 (notably < 400 in April), folate 14, ferritin, iron studies reviewed and ok, retic count 1.72, peripheral smear with rare blasts Reviewed medlist and fill history. No recent antibiotics listed. lasix and lisinopril could cause pancytopenia but that would be very rare. No splenomegaly on CT, labs and imaging not consistent with advanced cirrhosis CRP elevated perhaps related to proctitis, ESR only 35 and procal was negative. Discussed with pathologist who reviewed blood smear - suspicious for MDS Consulted hematology - discussed with Dr. Archer 09/09 -IR bone marrow biopsy completed 09/09, follow-up pathology- still pending -Replacing B12 with 1000 mcg daily, Venofer 200 mg daily x 3 doses completed Transfused 1 unit for symptomatic anemia 09/10 (3) Proctitis: Plan: Seen on admission CT abdomen and pelvis, unclear significance. Had loose stools this admission and C. diff and stool biofire negative. Completed 5d ceftriaxone and metronidazole because neutropenic. Software Programmer consulted, thinks proctitis unlikely She has had some bloody stools despite apixaban being held and she has risk factors for ischemic colitis. alternatively could be hemorrhoidal bleeding. CRP 6 and ESR 35 Tolerating general diet, monitor (4) Back pain of thoracolumbar region: Plan: T and L spine films reviewed - no fracture but extensive arthritis Pain seems consistent with thoracic radicular pain Might have had subacute compression fracture but would not tolerate lying down for advanced imaging at this point, also unlikely to tolerate bracing (5) Chronic systolic CHF (congestive heart failure): Plan: Acute on chronic systolic heart failure Followed in heart failure clinic -cont lasix, metoprolol. lisinopril held for hyperkalemia -lasix 20 mg IV x 1 on 09/12 -AM BMP (6) Pericardial effusion: Plan: Known diagnosis. Repeat TTE limited ordered to check for stability - unchanged, only small pericardial effusion without tamponade physiology, normal LV/RV function (7) Pleural effusion: Plan: Small/trivial bilateral, related to heart failure (8) Permanent atrial fibrillation: Plan: Hold apixaban due to anemia and thrombocytopenia with recent rectal bleeding Continue metoprolol for rate control (9) Obstructive sleep apnea of adult: Plan: has home CPAP, see above (10) Type 2 diabetes mellitus: Plan: HbA1C 6.8 in April Home medications Lantus 10 units HS -continue glargine + short acting -BG above goal related to steroids - increased glargine and correction factor (11) Restless legs syndrome: Plan: Continue pramipexole (12) Chronic respiratory failure with hypoxia: Plan: Baseline 2-3 LPM O2 Aim O2 88-92%% (13) Acute blood loss anemia: Plan: caused by rectal bleeding, also with bone marrow failure Plan hyperkalemia - persists - K 5.2, hold lisinopril, patiromer 09/09, 09/10, 09/11 -improved to 5.1 following lasix yesterday -AM BMP -lisinopril has washed out by now, medlist says had hyperkalemia with sacubitril and valsartan as well. 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 metoprolol can also exacerbate hyperkalemia in rare cases -low potassium diet confusion - daughter reports poor short term memory and poor insight/judgment, worse at night, consistent with dementia -worsened due to hypercarbia but there is chronic component and sounds like she's chronically hypercarbic - is in SNF since this week and also has memory problems, though they say Valeri is worse -sounds unsafe to be home alone -PT/OT eval pending - they have been by a few times but has been too ill to participate VTE Prophylaxis - SCDs, chemoppx deferred due to anemia, rectal bleeding Dispo - lives with her who was just discharged from hospital to [facility]. daughter lives nearby. PT/OT - has recommended ongoing rehab and SNF stay updated her daughter at bedside 09/08, 09/09, 09/10, 09/11 both daughters, multiple family members in room 09/12 (both daughters and granddaughter etc) Admission and Anticipated Discharge Date Admission Date: September 07, 2023 Subjective Used bipap very little overnight, pulled it off, was placed on high flow which was likely counterproductive More alert and less confused today - though still confused and has asterixis Continues to have pain rad from mid-lower back around trunk, unchanged Shortness of breath improved a little bit Physical Exam Physical Exam: PHYSICAL EXAMINATION Last 24h vital signs reviewed, see documentation in flowsheet General: sitting on EOB with lunch tray HEENT: Normocephalic, atraumatic, pupils round and equal, sclerae anicteric, no conjunctival injection, moist mucus membranes Lungs: dyspneic but less labored today. diminished both bases with crackles slight in bases improved, not wheezing Heart: Regular rate and rhythm, no murmurs. No JVD Abdomen: Soft, nontender, nondistended. no rrg Bowel sounds present. Extremities: Warm, dry, well-perfused. 1+ extremity edema. Neuro: awake but mildly sleepy and oriented x hospital self daughters but confusion still present, +asterixis, face symmetric, moves 4 extremities well. Psych: Normal affect and behavior Results & Data Results & Data Vital Signs (Past 12 Hours) Vital Signs Temp Pulse Pulse Resp BP BP Pulse Ox 09/12/23 15:52 36.5 C 85 21 151/75 H 94 09/12/23 14:21 86 20 97 09/12/23 11:04 36.7 C 95 H 21 129/45 L 98 09/12/23 10:15 97 H 20 96 09/12/23 09:12 88 09/12/23 09:00 09/12/23 07:50 36.4 C L 95 H 23 162/91 H 97 09/12/23 07:14 98 H 20 98 O2 Del Method O2 Flow Rate 09/12/23 15:52 Nasal Cannula 2 09/12/23 14:21 Nasal Cannula 4 09/12/23 11:04 Nasal Cannula 4 09/12/23 10:15 Nasal Cannula 3 09/12/23 09:12 09/12/23 09:00 Nasal Cannula 3 09/12/23 07:50 High Flow Nasal Cannula 6 09/12/23 07:14 Nasal Cannula 7 PG Care Time/CCT Total # of Minutes Spent Total Time Spent with Patient: Total time spent is greater than 50% in coordination of care (as documented) at patient's floor/unit and/or counseling patient: Coding Level of Care Code 18399 SUB INP/OBS CARE 3/50MIN Diagnoses Acute respiratory failure with hypoxia and hypercapnia J96.01; J96.02 Pancytopenia D61.818 Proctitis K62.89 Back pain of thoracolumbar region M54.50; M54.6 Chronic systolic CHF (congestive heart failure) I50.22 Pericardial effusion I31.39 Pleural effusion J90 Permanent atrial fibrillation I48.21 Obstructive sleep apnea of adult G47.33 Type 2 diabetes mellitus E11.9 Restless legs syndrome G25.81 Chronic respiratory failure with hypoxia J96.11 Acute blood loss anemia D62
[2023-09-12] MEDS: LANTUS PER UNIT CHARGE SQ SCH (20:51)
[2023-09-13 07:02] LABS: Base Excess VBG 6.5 mEq/L; HCO3 VBG 35 mmol/L; Oxygen Saturation VBG < 60.0 %; PCO2 VBG 76 mmHg (38-50); PO2 VBG 38 mmHg; pH VBG 7.27 (7.36-7.41)
[2023-09-13 07:15] LABS: Hemoglobin 8.6 g/dl (12.0-16.0); Mean Corpuscular Hemoglobin 35.1 pg (25.0-34.0); Mean Corpuscular Hgb Conc 31.9 g/dL (32.0-36.0); Mean Corpuscular Volume 110.2 fL (80.0-100.0); Mean Platelet Volume 11.5 fL (9.4-12.4); Nucleated RBC # (auto) 0.08 K/uL (0.00-0.12); Nucleated RBC % (auto) 3.9 %; Platelet Count 71 K/uL (130-400); RDW Coefficient of Variation 18.4 % (11.5-14.5); RDW Standard Deviation 75.1 fL (36.4-46.3); Red Blood Count 2.45 M/uL (4.20-5.40); White Blood Count 2.03 K/ul (4.8-10.8)
[2023-09-13 07:42] LABS: BUN Creatinine Ratio 42.1 (10-20); Calcium 8.6 mg/dl (8.6-10.3); Creatinine Clr Calc Pharmacy 28.7 ml/min; Est GFR (African American) 31.8 ml/min; Est GFR (Non-African American) 27.4 ml/min; Potassium 4.8 mmol/L (3.5-5.1)
--- NOTE | 2023-09-13 07:47 | Hematology/Oncology Prog Note ---
Date of Service September 13, 2023 Assessment & Plan (1) Pancytopenia: Plan: Bone marrow biopsy still pending. Dysplastic cells seen in the periphery. Recommend checking copper levels. Supportive care, transfusion if hemoglobin less than 7 or platelet count is less than 10,000 Plan Hematology will continue to follow the patient make appropriate recommendations Admission and Anticipated Discharge Date Admission Date: September 07, 2023 Subjective No new issues. Results & Data Vital Signs (Past 12 Hours) Vital Signs Temp Pulse Pulse Resp BP Pulse Ox O2 Del Method 09/13/23 07:38 36.6 C 95 H 22 138/71 94 Room Air 09/13/23 07:14 95 H 18 94 Nasal Cannula 09/13/23 03:37 36.6 C 93 H 18 119/64 97 BiPAP 09/13/23 03:10 106 H 24 99 09/13/23 00:35 92 H 09/13/23 00:35 Nasal Cannula, BiPAP 09/12/23 23:08 36.6 C 94 H 20 104/35 L 96 BiPAP 09/12/23 22:25 85 21 91 O2 Flow Rate FiO2 09/13/23 07:38 09/13/23 07:14 3 09/13/23 03:37 09/13/23 03:10 50 09/13/23 00:35 09/13/23 00:35 09/12/23 23:08 09/12/23 22:25 50
--- NOTE | 2023-09-13 12:19 | Gastroenterology Progress Note ---
Date of Service September 13, 2023 Assessment & Plan (1) Abdominal pain: Plan: She continues with either back pain radiating to her abdomen or vice versa. With her overall condition I don't think colonoscopy is kay. Will sign off for now. Please reconsult as needed Admission and Anticipated Discharge Date Admission Date: September 07, 2023 Subjective sitting in chair eating. Says her breathing is still an issue and she still has her back pain radiating to the front Physical Exam Physical Exam: She looks stronger Constitutional: WD/WN, vitals as above Results & Data Vital Signs (Past 12 Hours) Vital Signs Temp Pulse Pulse Resp BP Pulse Ox O2 Del Method 09/13/23 11:49 36.4 C L 84 22 125/67 94 Nasal Cannula 09/13/23 10:34 94 H 16 93 Nasal Cannula 09/13/23 07:38 36.6 C 95 H 22 138/71 94 Room Air 09/13/23 07:30 Nasal Cannula 09/13/23 07:14 95 H 18 94 Nasal Cannula 09/13/23 03:37 36.6 C 93 H 18 119/64 97 BiPAP 09/13/23 03:10 106 H 24 99 09/13/23 00:35 92 H 09/13/23 00:35 Nasal Cannula, BiPAP O2 Flow Rate FiO2 09/13/23 11:49 3 09/13/23 10:34 3 09/13/23 07:38 09/13/23 07:30 3 09/13/23 07:14 3 09/13/23 03:37 09/13/23 03:10 50 09/13/23 00:35 09/13/23 00:35
--- NOTE | 2023-09-13 13:50 | Hospitalist Progress Note ---
Date of Service September 13, 2023 Assessment & Plan (1) Acute respiratory failure with hypoxia and hypercapnia: Plan: Acute on chronic respiratory failure with hypoxia and hypercarbia acute component - decompensated CHF +/- pneumonia +/- COPD exacerbation s/p 5 days of rocephin which ended on 09/11 Has had 3 days of prednisone 40mg daily Has received diuresis for CHF chronic components - COPD, LEDA/OHS. Typically on 3L NC O2 continuously and nighttime CPAP Sedating meds: tramadol, gabapentin, lorazepam - all on hold Repeat VBG today still with hypercapnia Will recommend increasing the settings on BIPAP to 12/ from 05/05 (2) Pancytopenia: Plan: Etiology uncertain. Thus, she is s/p bone marrow bx -- results pending. Other w/u - B12 217 (notably < 400 in April), folate 14, ferritin, iron studies reviewed and ok, retic count 1.72, peripheral smear with rare blasts. TSH wnl. Appreciate heme/onc consultation. MDS is suspected as cause of her pancytopenia. Await bone marrow bx results. In meantime - daily vit B12 1000mcg. She is also s/p Venofer 200 mg daily x 3 doses as well as 1 unit PRBCs on 09/10. CBC in am for stability. (3) Proctitis: Plan: Seen on admission CT abdomen and pelvis, unclear significance. Had loose stools this admission and C. diff and stool biofire negative. Completed 5d ceftriaxone and metronidazole because neutropenic. Road Consultant consulted; proctitis felt unlikely. No rectal symptoms today. Monitor. (4) Back pain of thoracolumbar region: Plan: Continues to have significant pain in back. Will obtain CT of t-spine and l-spine -- r/o compression fractures, stenosis, etc. K-pad ordered. Lidoderm patches ordered. Prednisone for COPD should help. (5) Chronic systolic CHF (congestive heart failure): Plan: EF was 35-40% several years ago. Most recent echos show preserved EF. Thus, systolic CHF has resolved. Her CHF is on the basis of diastolic dysfunction. Received lasix this am 40mg by mouth will give 20mg IV x 1 this afternoon labs in am (6) Pericardial effusion: Plan: Known diagnosis. Repeat TTE this admission unchanged, only small pericardial effusion without tamponade physiology. (7) Pleural effusion: Plan: Small - no Rx needed other than diuresis (8) Permanent atrial fibrillation: Plan: Hold apixaban due to anemia and thrombocytopenia with recent rectal bleeding Continue metoprolol for rate control (9) Obstructive sleep apnea of adult: Plan: has home CPAP, but using BIPAP due to hypercapnia (10) Type 2 diabetes mellitus: Plan: uncontrolled adjust correction factor/carb ratio may need more basal insulin as well (11) Restless legs syndrome: Plan: Continue pramipexole Recent Fe infusions should help (12) Chronic respiratory failure with hypoxia: Plan: Baseline 2-3 LPM O2 (13) Acute blood loss anemia: Plan: caused by rectal bleeding, also with bone marrow failure H/H low but stable today (14) Hyperkalemia: Plan: resolved with holding FRAN, giving patiromer, etc BMP in am (15) Abdominal pain: Plan: etiology uncertain GI following; recs appreciated NOT felt to be due to proctitis consider a PPI - perhaps due to gastritis? (she reports it is upper abdomen) has gallstones on imaging - low threshold to work up biliary disease if she continues with pain (16) Pulmonary hypertension: (17) Pneumonia: Plan: treated for such with rocephin x 5 days earlier in the stay obtain CT chest to delineate what the crackles are on physical exam - edema? pneumonia? other? (18) Metabolic encephalopathy: Plan: 2nd to hypercapnia? other? checked ammonia this afternoon - wnl reassess tomorrow after BIPAP settings are adjusted at HS Plan typically lives with her who was just discharged from hospital to [facility]. PT/OT - SNF advised Admission and Anticipated Discharge Date Admission Date: September 07, 2023 Subjective main complaints are that of abdominal pain and back pain back pain is about at the junction of the t-spine and l-spine - mainly in the midline no radicular symptoms of legs pain in abdomen is upper abdomen not worsened by eating did use BIPAP overnight she continues with mild dyspnea with activity none at rest Review of Systems Review of Systems: gen - no fever cv - no chest pain pulm - some cough GI - no constipation, no diarrhea, no n/v Physical Exam Physical Exam: gen - obese, NAD, sleepy mouth - no thrush neck - no obvious JVD sitting upright at 90 degrees heart - irregular, s1 s2 lungs - soft, fine, b/l basilar rales, no wheezing abd - soft, minimally tender upper abdomen, BS+, no HSM ext - trace edema, pulses 2+ b/l musculo - tender distal t-spine at junction of l-spine; no pain in upper thoracic segments to palpation neuro - strength b/l legs 5/5 Results & Data Results & Data Vital Signs (Past 12 Hours) Vital Signs Temp Pulse Pulse Resp BP Pulse Ox O2 Del Method 09/13/23 11:49 36.4 C L 84 22 125/67 94 Nasal Cannula 09/13/23 10:34 94 H 16 93 Nasal Cannula 09/13/23 07:38 36.6 C 95 H 22 138/71 94 Room Air 09/13/23 07:30 Nasal Cannula 09/13/23 07:14 95 H 18 94 Nasal Cannula 09/13/23 03:37 36.6 C 93 H 18 119/64 97 BiPAP 09/13/23 03:10 106 H 24 99 O2 Flow Rate FiO2 09/13/23 11:49 3 09/13/23 10:34 3 09/13/23 07:38 09/13/23 07:30 3 09/13/23 07:14 3 09/13/23 03:37 09/13/23 03:10 50 Laboratory Results Laboratory Results - last 48 hr 09/09/23 09/12/23 09/12/23 Unknown 11:21 16:04 WBC RBC Hgb Hct MCV MCH MCHC RDW Std Deviation RDW Coeff of Vanessa Plt Count MPV Absolute Nucleated RBC Nucleated RBC % (auto) VBG pH VBG pCO2 VBG pO2 VBG HCO3 VBG O2 Saturation VBG Base Excess Sodium Potassium Chloride Carbon Dioxide Anion Gap BUN Creatinine Est Cr Clr Drug Dosing Est GFR ( Amer) Est GFR (Non-Af Amer) BUN/Creatinine Ratio Glucose POC Glucose 240 H 257 H Calcium Phosphorus Magnesium Ammonia Flow Cytometry Comment See Comment 09/12/23 09/13/23 09/13/23 20:15 06:50 07:12 WBC 2.03 L RBC 2.45 L Hgb 8.6 L Hct 27.0 L MCV 110.2 H MCH 35.1 H MCHC 31.9 L RDW Std Deviation 75.1 H RDW Coeff of Vanessa 18.4 H Plt Count 71 L MPV 11.5 Absolute Nucleated RBC 0.08 Nucleated RBC % (auto) 3.9 VBG pH 7.27 L VBG pCO2 76 H VBG pO2 38 VBG HCO3 35 VBG O2 Saturation < 60.0 VBG Base Excess 6.5 Sodium 140 Potassium 4.8 Chloride 101 Carbon Dioxide 35 H Anion Gap 4 BUN 72 H Creatinine 1.71 H Est Cr Clr Drug Dosing 28.7 Est GFR ( Amer) 31.8 Est GFR (Non-Af Amer) 27.4 BUN/Creatinine Ratio 42.1 H Glucose 215 H POC Glucose 225 H 204 H Calcium 8.6 Phosphorus Magnesium Ammonia Flow Cytometry Comment 09/13/23 09/13/23 09/13/23 11:05 14:30 14:31 WBC RBC Hgb Hct MCV MCH MCHC RDW Std Deviation RDW Coeff of Vanessa Plt Count MPV Absolute Nucleated RBC Nucleated RBC % (auto) VBG pH 7.32 L VBG pCO2 72 H VBG pO2 61 VBG HCO3 37 VBG O2 Saturation 89.7 VBG Base Excess 9.4 Sodium Potassium Chloride Carbon Dioxide Anion Gap BUN Creatinine Est Cr Clr Drug Dosing Est GFR ( Amer) Est GFR (Non-Af Amer) BUN/Creatinine Ratio Glucose POC Glucose 165 H Calcium Phosphorus 3.2 Magnesium 2.1 Ammonia 40.0 Flow Cytometry Comment PG Care Time/CCT Total # of Minutes Spent Total Time Spent with Patient: Total time spent is greater than 50% in coordination of care (as documented) at patient's floor/unit and/or counseling patient: Coding Level of Care Code 12517 SUB INP/OBS CARE 3/50MIN Diagnoses Acute respiratory failure with hypoxia and hypercapnia J96.01; J96.02 Pancytopenia D61.818 Proctitis K62.89 Back pain of thoracolumbar region M54.50; M54.6 Chronic systolic CHF (congestive heart failure) I50.22 Pericardial effusion I31.39 Pleural effusion J90 Permanent atrial fibrillation I48.21 Obstructive sleep apnea of adult G47.33 Type 2 diabetes mellitus E11.9 Restless legs syndrome G25.81 Chronic respiratory failure with hypoxia J96.11 Acute blood loss anemia D62 Hyperkalemia E87.5 Abdominal pain R10.9 Pulmonary hypertension I27.20 Pneumonia J18.9 Metabolic encephalopathy G93.41
[2023-09-13 14:36] LABS: Base Excess VBG 9.4 mEq/L; HCO3 VBG 37 mmol/L; Oxygen Saturation VBG 89.7 %; PCO2 VBG 72 mmHg (38-50); PO2 VBG 61 mmHg; pH VBG 7.32 (7.36-7.41)
[2023-09-13 14:56] LABS: Magnesium 2.1 mg/dl (1.7-2.4); Phosphorus 3.2 mg/dl (2.5-4.9)
--- NOTE | 2023-09-13 15:22 | CT Scan Report ---
CT chest diagnostic wo con CT DOSE: HISTORY: b/l basilar rales, resp failure TECHNIQUE: Multiaxial CT images of the chest were performed without contrast. A dose lowering techni que was utilized adhering to the principles of ALARA. COMPARISON: Chest CTA 04/18/2023. FINDINGS: No acute fractures within the chest. Chronic deformity within the left lateral ribs again n oted. Limited views of the upper abdomen demonstrate normal liver and spleen. Mild thickening of the adrenal glands is noted. Cholelithiasis is again noted. The heart remains enlarged. There is a modera te pericardial effusion, unchanged. There is a small right pleural effusion which is increased in siz e. There is a trace left pleural effusion, unchanged. Degenerative changes within the right sternocla vicular joint again noted. No mediastinal or hilar lymphadenopathy. Severe coronary artery calcificat ions persist. Mild calcified plaque within the normal caliber thoracic aorta. Normal esophagus. No pn eumothorax. The central airways are patent. Mild emphysema. Left basilar linear densities favor subse gmental atelectasis or scarring. Punctate calcified granuloma within the left upper lobe. A 2 cm bleb within the left lower lobe is noted. Consolidation within the base of the right lower lobe and right middle lobe suggestive of compressive atelectasis from the pleural effusion. A superimposed pneumoni a would be difficult to exclude. Hazy groundglass densities within the right lung could be due to dep endent change given the patient's positioning, developing pulmonary edema, or an atypical pneumonitis . IMPRESSION: 1. Small right pleural effusion has increased in size. Stable trace left pleural effusions. 2. Cardiomegaly and a moderate pericardial effusion, unchanged. 3. Consolidation within the base of the right lower lobe and right middle lobe suggestive of compress kacie atelectasis from the pleural effusion. A superimposed pneumonia would be difficult to exclude. 4. Hazy groundglass densities within the right lung could be due to dependent change given the patien t's positioning, developing pulmonary edema, or an atypical pneumonitis. ACT 112: Negative or not required by law. Electronically signed by: Lang Jamil M.D. 09/13/2023 3:21 PM
--- NOTE | 2023-09-13 15:23 | CT Scan Report ---
CT SCAN OF THE THORACIC SPINE WITHOUT IV CONTRAST CLINICAL HISTORY: Low back pain. COMPARISON STUDY: Chest CT dated 04/18/2023. Radiographs of the thoracic spine dated 09/10/2013. TECHNIQUE: CT scan of the thoracic spine is performed from the lower cervical spine to the upper lumb ar spine. Images are reviewed in the axial, sagittal, and coronal planes. IV contrast was not adminis tered for this examination. A dose lowering technique was utilized adhering to the principles of JARVIS Adames. The examination is degraded by streak artifact from the arms which could not be elevated above the chest. CT DOSE: 2790.36 mGy.cm FINDINGS: The skeletal structures are osteopenic. There is no evidence of acute fracture or malalignm ent involving the thoracic spine. Vertebral body height and alignment are maintained. Anterior osteop hytes are seen throughout. The transverse and spinous processes appear intact. Fusion hardware is not ed in the lower cervical spine. Degenerative disc space narrowing is seen throughout the thoracic spi ne. There are numerous tiny posterior disc osteophyte complexes. There is no CT evidence of high-grad e central canal stenosis. There is fatty atrophy of the paraspinous musculature. The paraspinous soft tissues are otherwise normal as imaged. There is no evidence of acute posterior rib fracture. Chroni c/healed rib fractures are seen on the left. The heart is markedly enlarged noting a small to moderat e pericardial effusion. There is atherosclerotic calcification of the thoracic aorta which is normal in caliber. Emphysema is noted. Airspace consolidation is seen at the right lung base with a small ri ght pleural effusion. IMPRESSION: 1. No acute bony abnormality is seen involving the thoracic spine. 2. Cardiomegaly and emphysema. 3. Small right pleural effusion with right basilar consolidation. 4. Additional findings as above. ACT 112: Negative or not required by law. Dictated: 09/13/2023 2:59 PM Transcribed: 09/13/2023 3:19 PM Wilson [id number] DOREEN_Daniel [id number] Electronically signed by: Ashkan Armstrong M.D. 09/13/2023 3:21 PM
--- NOTE | 2023-09-13 15:27 | CT Scan Report ---
CT lumbar spine wo con CLINICAL HISTORY: upper l-spine pain, compression Fx? TECHNIQUE: Multidetector row helical CT of the lumbar spine was performed without administration of i ntravenous contrast. Coronal and sagittal reformations were obtained. Automated dose lowering techniq ues and/or adjustment according to patient size were utilized for this exam. Comparison: None available at the time of this dictation. FINDINGS: For counting purposes, the last complete intervertebral disc space is considered L5-S1. No acute fractures are identified. Degenerative changes are noted in the visualized spine. Vertebral body alignment is within normal limits. Atherosclerotic changes are seen in the aorta. IMPRESSION: Degenerative changes without evidence of acute bony injury. ACT 112: Negative or not required by law. Electronically signed by: Juice Diaz M.D. 09/13/2023 3:25 PM
[2023-09-13] MEDS: LIDOCAINE 5% 1 PATCH TD SCH (15:50)
[2023-09-13] MEDS: FUROSEMIDE INJ 20 MG/2 ML VIAL IV ONE (17:15)
[2023-09-14 06:42] LABS: Base Excess VBG 10.3 mEq/L; HCO3 VBG 38 mmol/L; Oxygen Saturation VBG 89.4 %; PCO2 VBG 72 mmHg (38-50); PO2 VBG 60 mmHg; pH VBG 7.33 (7.36-7.41)
[2023-09-14 07:09] LABS: Hemoglobin 8.5 g/dl (12.0-16.0); Mean Corpuscular Hemoglobin 35.1 pg (25.0-34.0); Mean Corpuscular Hgb Conc 31.5 g/dL (32.0-36.0); Mean Corpuscular Volume 111.6 fL (80.0-100.0); Mean Platelet Volume 11.3 fL (9.4-12.4); Nucleated RBC # (auto) 0.12 K/uL (0.00-0.12); Nucleated RBC % (auto) 5.1 %; Platelet Count 72 K/uL (130-400); RDW Coefficient of Variation 18.3 % (11.5-14.5); RDW Standard Deviation 75.2 fL (36.4-46.3); Red Blood Count 2.42 M/uL (4.20-5.40); White Blood Count 2.34 K/ul (4.8-10.8)
[2023-09-14 08:25] LABS: Calcium 8.4 mg/dl (8.6-10.3); Potassium 4.6 mmol/L (3.5-5.1)
[2023-09-14 08:30] LABS: BUN Creatinine Ratio 47.1 (10-20); Creatinine Clr Calc Pharmacy 31.1 ml/min; Est GFR (African American) 35.2 ml/min; Est GFR (Non-African American) 30.4 ml/min
[2023-09-14] MEDS: LANTUS PER UNIT CHARGE SQ SCH (08:44)
[2023-09-14] MEDS: FUROSEMIDE 40 MG/4 ML VIAL IV ONE (08:44)
[2023-09-14] MEDS: levoFLOXacin 750 MG TAB PO SCH (11:56)
--- NOTE | 2023-09-14 15:51 | Hospitalist Progress Note ---
Date of Service September 14, 2023 Assessment & Plan (1) Acute respiratory failure with hypoxia and hypercapnia: Plan: Acute on chronic respiratory failure with hypoxia and hypercarbia acute component - decompensated CHF +/- ?pneumonia +/- COPD exacerbation s/p 5 days of rocephin which ended on 09/11 - will give 2 days of levaquin then stop all abx Has had 4 days of prednisone 40mg daily - wean to 30mg/day starting tomorrow Cont diuresis for CHF chronic components - COPD, LEDA/OHS. Typically on 3L NC O2 continuously and nighttime CPAP - encouraged to use CPAP (or hospital-issued BIPAP) nightly Sedating meds: tramadol, gabapentin, lorazepam - all on hold Repeat VBG today with improved parameters (2) Pancytopenia: Plan: Etiology uncertain. Thus, she is s/p bone marrow bx -- results pending. Other w/u - B12 217 (notably < 400 in April), folate 14, ferritin, iron studies reviewed and ok, retic count 1.72, peripheral smear with rare blasts. TSH wnl. Appreciate heme/onc consultation. MDS is suspected as cause of her pancytopenia. Await bone marrow bx results. In meantime - daily vit B12 1000mcg. She is also s/p Venofer 200 mg daily x 3 doses as well as 1 unit PRBCs on 09/10. CBC cell lines low but acceptable today. heme/onc recommending copper level - will add on to AM labs. (3) Proctitis: Plan: Seen on admission CT abdomen and pelvis, unclear significance. Had loose stools this admission and C. diff and stool biofire negative. Completed 5d ceftriaxone and metronidazole because neutropenic. Investment Consultant consulted; proctitis felt unlikely. No rectal symptoms although having frequent stools. Abd pain is present, but it is upper rather than rectal or lower. Monitor. (4) Back pain of thoracolumbar region: Plan: Continues to have significant pain in back. CT of t-spine and l-spine -- NO compression fractures, severe stenosis, etc. But considerable DJD. Not a good candidate for narcotics given #1. K-pad ordered. Lidoderm patches ordered. Prednisone for COPD - this should help back as well. (5) Chronic systolic CHF (congestive heart failure): Plan: EF was 35-40% several years ago. Most recent echos show preserved EF. Thus, systolic CHF has resolved. Her CHF is on the basis of diastolic dysfunction. THUS -- ACUTE on CHRONIC diastolic CHF. give lasix IV x 2 doses today. labs in am. (6) Pericardial effusion: Plan: Known diagnosis. Repeat TTE this admission unchanged, only small pericardial effusion without tamponade physiology. (7) Pleural effusion: Plan: Small - no Rx needed other than diuresis (8) Permanent atrial fibrillation: Plan: Holding apixaban due to anemia and thrombocytopenia with recent rectal bleeding Latter resolved, and platelets remain in the 70s If platelets remain stable would consider adding back Eliquis cautiously Continue metoprolol for rate control (9) Obstructive sleep apnea of adult: Plan: candidate for BIPAP or Trilogy unit in rosey of CPAP given hypercapnia? consider pulmonary consultation to assist w/ this (10) Type 2 diabetes mellitus: Plan: improving with adjustment in correction factor/carb ratio added AM lantus as well (11) Restless legs syndrome: Plan: Continue pramipexole Recent Fe infusions should help (12) Chronic respiratory failure with hypoxia: Plan: Baseline 2-3 LPM O2 (13) Acute blood loss anemia: Plan: caused by rectal bleeding, also with bone marrow failure H/H stable last few days (14) Hyperkalemia: Plan: resolved with holding FRAN, giving patiromer, etc BMP in am (15) Abdominal pain: Plan: etiology uncertain GI following; recs appreciated NOT felt to be due to proctitis consider a PPI - perhaps due to gastritis? (she reports it is upper abdomen) - add protonix 40mg daily has gallstones on imaging - low threshold to work up biliary disease if she continues with pain - but pain is not during meals or post-prandial making biliary unlikely (16) Pulmonary hypertension: (17) Pneumonia: Plan: treated for such with rocephin x 5 days earlier in the stay 2 more days of levaquin then stop all abx (18) Metabolic encephalopathy: Plan: suspect 2nd to hypercapnia mental status improved with use of BIPAP checked ammonia - wnl Plan typically lives with her who was just discharged from hospital to [facility]. PT/OT - SNF advised daughters updated at bedside Admission and Anticipated Discharge Date Admission Date: September 07, 2023 Subjective pt continues with mild back pain also with mild stomach pain but not worsened by eating no nausea or emesis multiple BMs overnight - small per patient continues with dyspnea on exertion but no dyspnea at rest 2 daughters at bedside today tele overnight - a.fib Review of Systems Review of Systems: gen - fatigue, weak, appetite fair cv - no chest pain pulm - minimal cough, no wheeze abd - pain - mainly umbilical and upper Physical Exam Physical Exam: gen - obese, NAD, very awake and alert today, sitting at side of bed mouth - no thrush neck - no obvious JVD sitting upright at 90 degrees heart - irregular, s1 s2, mildly tachy lungs - soft, fine, b/l basilar rales - mainly on right, minimal on left, no wheezing abd - soft, NT, ND, BS+, no HSM ext - no edema, pulses 2+ b/l Results & Data Results & Data Vital Signs (Past 12 Hours) Vital Signs Temp Pulse Resp BP Pulse Ox O2 Del Method O2 Flow Rate 09/14/23 15:23 36.8 C 90 20 117/60 94 Nasal Cannula 3 09/14/23 14:27 88 20 95 Nasal Cannula 3 09/14/23 11:51 36.6 C 98 H 20 123/77 97 Nasal Cannula 3 09/14/23 10:12 80 18 97 Nasal Cannula 3 09/14/23 08:00 Nasal Cannula 4 09/14/23 07:42 36.8 C 91 H 21 133/80 92 Nasal Cannula 3 09/14/23 06:01 92 H 22 96 Nasal Cannula 3 Laboratory Results Laboratory Results - last 24 hr 09/09/23 09/14/23 09/14/23 Unknown 06:31 07:11 WBC 2.34 L RBC 2.42 L Hgb 8.5 L Hct 27.0 L MCV 111.6 H MCH 35.1 H MCHC 31.5 L RDW Std Deviation 75.2 H RDW Coeff of Vanessa 18.3 H Plt Count 72 L MPV 11.3 Absolute Nucleated RBC 0.12 Nucleated RBC % (auto) 5.1 Sodium 141 Potassium 4.6 Chloride 102 Carbon Dioxide 36 H Anion Gap 3 BUN 74 H Creatinine 1.57 H Est Cr Clr Drug Dosing 31.1 Est GFR ( Amer) 35.2 Est GFR (Non-Af Amer) 30.4 BUN/Creatinine Ratio 47.1 H Glucose 228 H POC Glucose 241 H Calcium 8.4 L Flow Cytometry Comment See Comment 09/14/23 09/14/23 11:31 16:20 WBC RBC Hgb Hct MCV MCH MCHC RDW Std Deviation RDW Coeff of Vanessa Plt Count MPV Absolute Nucleated RBC Nucleated RBC % (auto) Sodium Potassium Chloride Carbon Dioxide Anion Gap BUN Creatinine Est Cr Clr Drug Dosing Est GFR ( Amer) Est GFR (Non-Af Amer) BUN/Creatinine Ratio Glucose POC Glucose 116 H 127 H Calcium Flow Cytometry Comment PG Care Time/CCT Total # of Minutes Spent Total Time Spent with Patient: Total time spent is greater than 50% in coordination of care (as documented) at patient's floor/unit and/or counseling patient: Coding Level of Care Code 02084 SUB INP/OBS CARE 3/50MIN Diagnoses Acute respiratory failure with hypoxia and hypercapnia J96.01; J96.02 Pancytopenia D61.818 Proctitis K62.89 Back pain of thoracolumbar region M54.50; M54.6 Chronic systolic CHF (congestive heart failure) I50.22 Pericardial effusion I31.39 Pleural effusion J90 Permanent atrial fibrillation I48.21 Obstructive sleep apnea of adult G47.33 Type 2 diabetes mellitus E11.9 Restless legs syndrome G25.81 Chronic respiratory failure with hypoxia J96.11 Acute blood loss anemia D62 Hyperkalemia E87.5 Abdominal pain R10.9 Pulmonary hypertension I27.20 Pneumonia J18.9 Metabolic encephalopathy G93.41
[2023-09-14] MEDS: PANTOprazole 40 MG TAB PO SCH (16:52)
[2023-09-14] MEDS: FUROSEMIDE INJ 20 MG/2 ML VIAL IV ONE (16:53)
[2023-09-15 07:17] LABS: Hematocrit (blood only) 27.4 % (37.0-47.0); Hemoglobin 8.4 g/dl (12.0-16.0); Mean Corpuscular Hemoglobin 34.7 pg (25.0-34.0); Mean Corpuscular Hgb Conc 30.7 g/dL (32.0-36.0); Mean Corpuscular Volume 113.2 fL (80.0-100.0); Mean Platelet Volume 11.4 fL (9.4-12.4); Nucleated RBC % (auto) 4.1 %; Platelet Count 65 K/uL (130-400); RDW Coefficient of Variation 18.4 % (11.5-14.5); Red Blood Count 2.42 M/uL (4.20-5.40); White Blood Count 2.44 K/ul (4.8-10.8)
[2023-09-15 07:52] LABS: BUN Creatinine Ratio 43.3 (10-20); Calcium 8.2 mg/dl (8.6-10.3); Creatinine Clr Calc Pharmacy 31.5 ml/min; Est GFR (African American) 35.2 ml/min; Est GFR (Non-African American) 30.4 ml/min; Potassium 4.6 mmol/L (3.5-5.1)
[2023-09-15] MEDS: predniSONE 10 MG TABLET PO SCH (08:40)
[2023-09-15] MEDS: FUROSEMIDE 40 MG/4 ML VIAL IV ONE (10:19)
[2023-09-15] MEDS: FUROSEMIDE INJ 20 MG/2 ML VIAL IV ONE (15:34)
[2023-09-15] MEDS: ALBUT/IPRATROP 3MG/0.5MG NEB 3 ML VIAL NEB PRN (15:38)
--- NOTE | 2023-09-15 20:26 | Hospitalist Progress Note ---
Date of Service September 15, 2023 Assessment & Plan (1) Acute respiratory failure with hypoxia and hypercapnia: Plan: Acute on chronic respiratory failure with hypoxia and hypercarbia acute component - decompensated CHF +/- ?pneumonia +/- COPD exacerbation s/p 5 days of rocephin which ended on 09/11 - will give 2 days of levaquin then stop all abx - first dose today Has had 4 days of prednisone 40mg daily - wean to 30mg/day starting today Cont diuresis for CHF - 40mg this am, 20mg this evening, with labs in am chronic components - COPD, LEDA/OHS. Typically on 3L NC O2 continuously and nighttime CPAP - encouraged to use CPAP (or hospital-issued BIPAP) nightly (2) Pancytopenia: Plan: Etiology uncertain. Thus, she is s/p bone marrow bx -- results pending. Other w/u - B12 217 (notably < 400 in April), folate 14, ferritin, iron studies reviewed and ok, retic count 1.72, peripheral smear with rare blasts. TSH wnl. Appreciate heme/onc consultation. MDS is suspected as cause of her pancytopenia. Await bone marrow bx results. In meantime - daily vit B12 1000mcg. She is also s/p Venofer 200 mg daily x 3 doses as well as 1 unit PRBCs on 09/10. CBC cell lines low but again acceptable today. heme/onc recommending copper level - sent and pending (3) Proctitis: Plan: Seen on admission CT abdomen and pelvis, unclear significance. Had loose stools this admission and C. diff and stool biofire negative. Completed 5d ceftriaxone and metronidazole because neutropenic. Processing Archivist consulted; proctitis felt unlikely. No rectal symptoms although having frequent stools. Abd pain is present, but it is upper rather than rectal or lower. Cont to Monitor. (4) Back pain of thoracolumbar region: Plan: Continues to have significant pain in back. CT of t-spine and l-spine -- NO compression fractures, severe stenosis, etc. But considerable DJD. Not a good candidate for narcotics given #1. K-pad ordered. Lidoderm patches ordered. Prednisone for COPD - this should help back as well. Add back gabapentin 100mg HS. (5) Chronic systolic CHF (congestive heart failure): Plan: EF was 35-40% several years ago. Most recent echos show preserved EF. Thus, systolic CHF has resolved. Her CHF is on the basis of diastolic dysfunction. THUS -- ACUTE on CHRONIC diastolic CHF. give lasix IV x 2 doses again today. per NENO Meyers - CHF clinic - dry weight is about 200 pounds. labs in am. (6) Pericardial effusion: Plan: Known diagnosis. Repeat TTE this admission unchanged, only small pericardial effusion without tamponade physiology. (7) Pleural effusion: Plan: Small - no Rx needed other than diuresis (8) Permanent atrial fibrillation: Plan: Holding apixaban due to anemia and thrombocytopenia with recent rectal bleeding Latter resolved, and platelets remain in the 70s If platelets remain stable would consider adding back Eliquis cautiously Continue metoprolol for rate control (9) Obstructive sleep apnea of adult: Plan: candidate for BIPAP or Trilogy unit in [place] of CPAP given hypercapnia? consider pulmonary consultation to assist w/ this (10) Type 2 diabetes mellitus: Plan: improving with adjustment in correction factor/carb ratio and addition of AM lantus cont BID lantus novolog ac/hs (11) Restless legs syndrome: Plan: Continue pramipexole Recent Fe infusions should help (12) Chronic respiratory failure with hypoxia: Plan: Baseline 2-3 LPM O2 (13) Acute blood loss anemia: Plan: caused by rectal bleeding, also with bone marrow failure H/H stable last few days (14) Hyperkalemia: Plan: resolved with holding FRAN, giving patiromer, etc BMP in am (15) Abdominal pain: Plan: improved with once daily PPI thus, gastritis and/or GERD? (16) Pulmonary hypertension: (17) Pneumonia: Plan: treated for such with rocephin x 5 days earlier in the stay 2 more days of levaquin then stop all abx - day 1 today (18) Metabolic encephalopathy: Plan: suspect 2nd to hypercapnia mental status improved with use of BIPAP on nights when she skips BIPAP she is often worse the next day checked ammonia - wnl Plan typically lives with her who was just discharged from hospital to [facility]. PT/OT - SNF advised daughters updated at bedside yesterday cont to angelo Admission and Anticipated Discharge Date Admission Date: September 07, 2023 Subjective only complaint is ongoing back pain no change in location no radicular symptoms abd pain resolved eating well no nausea / vomiting does report ongoing FUENTES occasional dyspnea at rest mild cough - chronic, at baseline Review of Systems Review of Systems: cv - no chest pain pulm - no significant sputum GI - no abd pain/nausea/vomiting Physical Exam Physical Exam: gen - obese, NAD, sleepy today but not lethargic mouth - no thrush neck - no obvious JVD sitting upright at 90 degrees heart - irregular, s1 s2, regular rate, no murmur lungs - soft, fine, b/l basilar rales -improved; mild on right, no rales on left, no wheezing abd - soft, NT, ND, BS+, no HSM ext - no edema, pulses 2+ b/l Results & Data Results & Data Vital Signs (Past 12 Hours) Vital Signs Temp Pulse Resp BP Pulse Ox O2 Del Method O2 Flow Rate 09/15/23 19:26 37.0 C 95 H 18 101/66 100 High Flow Nasal Cannula 4 09/15/23 15:38 84 22 96 Nasal Cannula 4 09/15/23 15:10 36.6 C 83 22 104/57 L 97 Nasal Cannula 09/15/23 11:21 36.6 C 84 19 110/60 97 Nasal Cannula Laboratory Results Laboratory Results - last 24 hr 09/15/23 09/15/23 09/15/23 06:32 07:49 08:11 WBC 2.44 L RBC 2.42 L Hgb 8.4 L Hct 27.4 L MCV 113.2 H MCH 34.7 H MCHC 30.7 L RDW Std Deviation 77.0 H RDW Coeff of Vanessa 18.4 H Plt Count 65 L MPV 11.4 Absolute Nucleated RBC 0.10 Nucleated RBC % (auto) 4.1 Sodium 144 Potassium 4.6 Chloride 102 Carbon Dioxide 38 H Anion Gap 4 BUN 68 H Creatinine 1.57 H Est Cr Clr Drug Dosing 31.5 Est GFR ( Amer) 35.2 Est GFR (Non-Af Amer) 30.4 BUN/Creatinine Ratio 43.3 H Glucose 147 H POC Glucose 134 H Calcium 8.2 L Serum Copper Pending 09/15/23 09/15/23 09/15/23 11:16 16:27 20:12 WBC RBC Hgb Hct MCV MCH MCHC RDW Std Deviation RDW Coeff of Vanessa Plt Count MPV Absolute Nucleated RBC Nucleated RBC % (auto) Sodium Potassium Chloride Carbon Dioxide Anion Gap BUN Creatinine Est Cr Clr Drug Dosing Est GFR ( Amer) Est GFR (Non-Af Amer) BUN/Creatinine Ratio Glucose POC Glucose 185 H 140 H 164 H Calcium Serum Copper PG Care Time/CCT Total # of Minutes Spent Total Time Spent with Patient: Total time spent is greater than 50% in coordination of care (as documented) at patient's floor/unit and/or counseling patient: Coding Level of Care Code 84730 SUB INP/OBS CARE 2/35MIN Diagnoses Acute respiratory failure with hypoxia and hypercapnia J96.01; J96.02 Pancytopenia D61.818 Proctitis K62.89 Back pain of thoracolumbar region M54.50; M54.6 Chronic systolic CHF (congestive heart failure) I50.22 Pericardial effusion I31.39 Pleural effusion J90 Permanent atrial fibrillation I48.21 Obstructive sleep apnea of adult G47.33 Type 2 diabetes mellitus E11.9 Restless legs syndrome G25.81 Chronic respiratory failure with hypoxia J96.11 Acute blood loss anemia D62 Hyperkalemia E87.5 Abdominal pain R10.9 Pulmonary hypertension I27.20 Pneumonia J18.9 Metabolic encephalopathy G93.41
[2023-09-16 06:44] LABS: Hematocrit (blood only) 27.3 % (37.0-47.0); Hemoglobin 8.5 g/dl (12.0-16.0); Mean Corpuscular Hgb Conc 31.1 g/dL (32.0-36.0); Mean Corpuscular Volume 112.3 fL (80.0-100.0); Mean Platelet Volume 10.3 fL (9.4-12.4); Nucleated RBC # (auto) 0.13 K/uL (0.00-0.12); Platelet Count 67 K/uL (130-400); RDW Standard Deviation 74.1 fL (36.4-46.3); Red Blood Count 2.43 M/uL (4.20-5.40); White Blood Count 2.62 K/ul (4.8-10.8)
[2023-09-16 07:13] LABS: BUN Creatinine Ratio 41.8 (10-20); Calcium 8.2 mg/dl (8.6-10.3); Creatinine Clr Calc Pharmacy 32.2 ml/min; Est GFR (African American) 36.3 ml/min; Est GFR (Non-African American) 31.4 ml/min; Potassium 4.1 mmol/L (3.5-5.1)
[2023-09-16] MEDS: FUROSEMIDE 40 MG/4 ML VIAL IV SCH (08:40)
[2023-09-16] MEDS: HEPARIN SOD 5,000 UNIT/0.5 ML VIAL SQ SCH (08:40)
--- NOTE | 2023-09-16 20:13 | Hospitalist Progress Note ---
Date of Service September 16, 2023 Assessment & Plan (1) Acute respiratory failure with hypoxia and hypercapnia: Plan: Acute on chronic respiratory failure with hypoxia and hypercarbia acute component - decompensated CHF +/- ?pneumonia +/- COPD exacerbation s/p 5 days of rocephin which ended on 09/11, followed by 2 days of levaquin -- all abx have been stopped Had 4 days of prednisone 40mg daily - day #2 of 30mg of prednisone; do 30mg for 3 days, then 20mg for 3 days, and so forth Cont diuresis for CHF - 40mg BID IV chronic components - COPD, LEDA/OHS. Typically on 3L NC O2 continuously and nighttime CPAP - encouraged to use CPAP (or hospital-issued BIPAP) nightly (2) Pancytopenia: Plan: Concern is for MDS. She is s/p bone marrow bx -- results pending. Copper level pending. Other w/u - B12 217 (notably < 400 in April), folate 14, ferritin, iron studies reviewed and ok, retic count 1.72, peripheral smear with rare blasts. TSH wnl. Appreciate heme/onc consultation. Cont daily vit B12 1000mcg. She is also s/p Venofer 200 mg daily x 3 doses as well as 1 unit PRBCs on 09/10. CBC cell lines low but remain acceptable. Repeat CBC in am. (3) Proctitis: Plan: Seen on admission CT abdomen and pelvis, unclear significance. Had loose stools this admission and C. diff and stool biofire negative. Completed 5d ceftriaxone and metronidazole because neutropenic. Timber Mill Worker consulted; proctitis felt unlikely. No rectal symptoms (4) Back pain of thoracolumbar region: Plan: Continues to have significant pain in back. CT of t-spine and l-spine -- NO compression fractures, severe stenosis, etc. But considerable DJD. Not a good candidate for narcotics given #1. K-pad ordered. Lidoderm patches ordered. Prednisone for COPD - this should help back as well. Added back gabapentin 100mg HS. (5) Chronic systolic CHF (congestive heart failure): Plan: EF was 35-40% several years ago. Most recent echos show preserved EF. Thus, systolic CHF has resolved. Her CHF is on the basis of diastolic dysfunction. THUS -- ACUTE on CHRONIC diastolic CHF. Cont lasix 40mg IV BID. per NENO Meyers - CHF clinic - dry weight is about 200 pounds. labs in am. (6) Pericardial effusion: Plan: Known diagnosis. Repeat TTE this admission unchanged, only small pericardial effusion without tamponade physiology. (7) Pleural effusion: Plan: Small - no Rx needed other than diuresis (8) Permanent atrial fibrillation: Plan: Holding apixaban due to anemia and thrombocytopenia with recent rectal bleeding Latter resolved, and platelets remain in the 70s If platelets remain stable would consider adding back Eliquis cautiously Continue metoprolol for rate control (9) Obstructive sleep apnea of adult: Plan: candidate for Trilogy unit in [place] of CPAP given hypercapnia? consider pulmonary consultation to assist w/ this will ask social work team for list of criteria for Trilogy (10) Type 2 diabetes mellitus: Plan: improved/controlled with adjustment in correction factor/carb ratio and addition of AM lantus cont BID lantus novolog ac/hs (11) Restless legs syndrome: Plan: Continue pramipexole Recent Fe infusions should have helped with symptoms as well (12) Chronic respiratory failure with hypoxia: Plan: Baseline 2-3 LPM O2 (13) Acute blood loss anemia: Plan: caused by rectal bleeding, also with bone marrow failure H/H stable last few days (14) Hyperkalemia: Plan: resolved with holding FRAN, giving patiromer, etc BMP in am (15) Abdominal pain: Plan: improved with once daily PPI thus, gastritis and/or GERD (16) Pulmonary hypertension: (17) Pneumonia: Plan: treated for such with rocephin x 5 days earlier in the stay + 2 days of levaquin she is off all abx (18) Metabolic encephalopathy: Plan: suspect 2nd to hypercapnia mental status improved with use of BIPAP on nights when she skips BIPAP she is often worse the next day checked ammonia - wnl Plan typically lives with her who was just discharged from hospital to [facility]. PT/OT - SNF advised - likely will be ready next week daughter updated at bedside today Admission and Anticipated Discharge Date Admission Date: September 07, 2023 Subjective no issues overnight or today daughter at bedside per staff only used CPAP for 30 minutes last night breathing is better no further abd pain back pain - about the same - same location, same amount of pain she did get the k-pad heating pad - helps some Review of Systems Review of Systems: gen - no fevers cv - no chest pain pulm - cough at baseline; dyspnea improved Physical Exam Physical Exam: gen - obese, NAD, she looks about the same as yesterday mouth - no thrush, MMM neck - no obvious JVD sitting upright at 90 degrees heart - irregular, s1 s2, regular rate, no murmur lungs - rales about 1/[address] up right back; no rales on left; decreased BS bases; no wheeze abd - soft, NT, ND, BS+, no HSM ext - no edema, pulses 2+ b/l psych - sleepy Results & Data Results & Data Vital Signs (Past 12 Hours) Vital Signs Temp Pulse Pulse Resp BP BP Pulse Ox 09/16/23 19:55 37.1 C 87 20 150/82 H 98 09/16/23 15:04 36.8 C 89 20 100/65 97 09/16/23 15:00 78 09/16/23 12:00 37.0 C 97 H 22 128/64 93 09/16/23 08:15 37.3 C 96 H 21 114/74 95 O2 Del Method O2 Flow Rate 09/16/23 19:55 Nasal Cannula 2 09/16/23 15:04 Nasal Cannula 3 09/16/23 15:00 09/16/23 12:00 Nasal Cannula 4 09/16/23 08:15 High Flow Nasal Cannula 4 Laboratory Results Laboratory Results - last 24 hr 09/09/23 09/15/23 09/16/23 Unknown 20:12 05:54 WBC 2.62 L RBC 2.43 L Hgb 8.5 L Hct 27.3 L MCV 112.3 H MCH 35.0 H MCHC 31.1 L RDW Std Deviation 74.1 H RDW Coeff of Vanessa 18.0 H Plt Count 67 L MPV 10.3 Absolute Nucleated RBC 0.13 H Nucleated RBC % (auto) 5.0 Sodium 143 Potassium 4.1 Chloride 101 Carbon Dioxide 38 H Anion Gap 4 BUN 64 H Creatinine 1.53 H Est Cr Clr Drug Dosing 32.2 Est GFR ( Amer) 36.3 Est GFR (Non-Af Amer) 31.4 BUN/Creatinine Ratio 41.8 H Glucose 144 H POC Glucose 164 H Calcium 8.2 L BM Chromosome Analysis See Comment 09/16/23 09/16/23 09/16/23 07:30 11:24 16:25 WBC RBC Hgb Hct MCV MCH MCHC RDW Std Deviation RDW Coeff of Vanessa Plt Count MPV Absolute Nucleated RBC Nucleated RBC % (auto) Sodium Potassium Chloride Carbon Dioxide Anion Gap BUN Creatinine Est Cr Clr Drug Dosing Est GFR ( Amer) Est GFR (Non-Af Amer) BUN/Creatinine Ratio Glucose POC Glucose 116 H 190 H 133 H Calcium BM Chromosome Analysis PG Care Time/CCT Total # of Minutes Spent Total Time Spent with Patient: Total time spent is greater than 50% in coordination of care (as documented) at patient's floor/unit and/or counseling patient: Coding Level of Care Code 40929 SUB INP/OBS CARE 2/35MIN Diagnoses Acute respiratory failure with hypoxia and hypercapnia J96.01; J96.02 Pancytopenia D61.818 Proctitis K62.89 Back pain of thoracolumbar region M54.50; M54.6 Chronic systolic CHF (congestive heart failure) I50.22 Pericardial effusion I31.39 Pleural effusion J90 Permanent atrial fibrillation I48.21 Obstructive sleep apnea of adult G47.33 Type 2 diabetes mellitus E11.9 Restless legs syndrome G25.81 Chronic respiratory failure with hypoxia J96.11 Acute blood loss anemia D62 Hyperkalemia E87.5 Abdominal pain R10.9 Pulmonary hypertension I27.20 Pneumonia J18.9 Metabolic encephalopathy G93.41
[2023-09-16] MEDS: GABAPENTIN 100 MG CAP PO SCH (20:22)
[2023-09-16] MEDS: LORazepam 0.5 MG TAB PO PRN (22:07)
[2023-09-17 10:28] LABS: Hematocrit (blood only) 28.8 % (37.0-47.0); Hemoglobin 8.8 g/dl (12.0-16.0); Mean Corpuscular Hemoglobin 35.1 pg (25.0-34.0); Mean Corpuscular Hgb Conc 30.6 g/dL (32.0-36.0); Mean Corpuscular Volume 114.7 fL (80.0-100.0); Mean Platelet Volume 11.4 fL (9.4-12.4); Nucleated RBC # (auto) 0.12 K/uL (0.00-0.12); Nucleated RBC % (auto) 4.6 %; Platelet Count 65 K/uL (130-400); RDW Coefficient of Variation 18.4 % (11.5-14.5); RDW Standard Deviation 76.5 fL (36.4-46.3); Red Blood Count 2.51 M/uL (4.20-5.40)
[2023-09-17 10:49] LABS: BUN Creatinine Ratio 37.7 (10-20); Calcium 8.3 mg/dl (8.6-10.3); Creatinine Clr Calc Pharmacy 30.7 ml/min; Est GFR (African American) 34.7 ml/min; Est GFR (Non-African American) 29.9 ml/min; Potassium 4.7 mmol/L (3.5-5.1)
--- NOTE | 2023-09-17 19:32 | Hospitalist Progress Note ---
Date of Service September 17, 2023 Assessment & Plan (1) Acute respiratory failure with hypoxia and hypercapnia: Plan: Acute on chronic respiratory failure with hypoxia and hypercarbia acute component - decompensated CHF +/- ?pneumonia +/- COPD exacerbation s/p 5 days of rocephin which ended on 09/11, followed by 2 days of levaquin -- all abx have been stopped Had 4 days of prednisone 40mg daily - day #3 of 30mg of prednisone; plan 4 days of the 30, then drop to 20mg Significant contraction alkalosis today - will hold afternoon lasix, recheck labs in am chronic components - COPD, LEDA/OHS. Typically on 3L NC O2 continuously and nighttime CPAP - encouraged to use CPAP (or hospital-issued BIPAP) nightly (2) Pancytopenia: Plan: Concern is for MDS. She is s/p bone marrow bx -- results pending. Copper level pending. Other w/u - B12 217 (notably < 400 in April), folate 14, ferritin, iron studies reviewed and ok, retic count 1.72, peripheral smear with rare blasts. TSH wnl. Appreciate heme/onc consultation. Cont daily vit B12 1000mcg. She is also s/p Venofer 200 mg daily x 3 doses as well as 1 unit PRBCs on 09/10. CBC cell lines low but remain acceptable. Repeat CBC in am. (3) Proctitis: Plan: Seen on admission CT abdomen and pelvis, unclear significance. Had loose stools this admission and C. diff and stool biofire negative. Completed 5d ceftriaxone and metronidazole because neutropenic. Bag Adjuster consulted; proctitis felt unlikely. No rectal symptoms (4) Back pain of thoracolumbar region: Plan: 2nd to DJD. CT of t-spine and l-spine -- NO compression fractures, severe stenosis, etc. But OA/DJD of spine present. K-pad ordered. Lidoderm patches ordered. Prednisone for COPD - this should help back as well. gabapentin 100mg HS. (5) Chronic systolic CHF (congestive heart failure): Plan: EF was 35-40% several years ago. Most recent echos show preserved EF. Thus, systolic CHF has resolved. Her CHF is on the basis of diastolic dysfunction. THUS -- ACUTE on CHRONIC diastolic CHF. IMPROVING. However has significant contraction alkalosis today - hold afternoon lasix, recheck BMP am. per NENO Meyers - CHF clinic - dry weight is about 200 pounds. (6) Pericardial effusion: Plan: Known diagnosis. Repeat TTE this admission unchanged, only small pericardial effusion without tamponade physiology. (7) Pleural effusion: Plan: Small - no Rx needed other than diuresis (8) Permanent atrial fibrillation: Plan: Holding apixaban due to anemia and thrombocytopenia with recent rectal bleeding Latter resolved, and platelets remain in the 70s If platelets remain stable would consider adding back Eliquis cautiously Continue metoprolol for rate control (9) Obstructive sleep apnea of adult: Plan: candidate for Trilogy unit in [place] of CPAP given hypercapnia? consider pulmonary consultation to assist w/ this will ask social work team for list of criteria for Trilogy (10) Type 2 diabetes mellitus: Plan: improved/controlled with adjustment in correction factor/carb ratio and addition of AM lantus cont BID lantus novolog ac/hs (11) Restless legs syndrome: Plan: Continue pramipexole Recent Fe infusions should have helped with symptoms as well (12) Chronic respiratory failure with hypoxia: Plan: Baseline 2-3 LPM O2 (13) Acute blood loss anemia: Plan: caused by rectal bleeding, also with bone marrow failure H/H stable last few checks (14) Hyperkalemia: Plan: resolved with holding FRAN, giving patiromer, etc BMP in am (15) Abdominal pain: Plan: improved with once daily PPI thus, gastritis and/or GERD likely the cause (16) Pulmonary hypertension: (17) Pneumonia: Plan: treated for such with rocephin x 5 days earlier in the stay + 2 days of levaquin resolved clinically (18) Metabolic encephalopathy: Plan: suspect 2nd to hypercapnia mental status improved with use of BIPAP on nights when she skips BIPAP she is often worse the next day checked ammonia - wnl Plan typically lives with her who was just discharged from hospital to [facility]. PT/OT - SNF advised - likely will be ready next week DVT proph - heparin 5000 TID Admission and Anticipated Discharge Date Admission Date: September 07, 2023 Subjective no changes overnight abd pain fully resolved eating well back pain remains an issue but no worse than prior not using the heating pad regularly only wore her CPAP for 1-2 hours last night does state her breathing is better today Review of Systems Review of Systems: cv - no chest pain pulm - baseline cough unchanged GI - no abd pain or N/V Physical Exam Physical Exam: gen - obese, NAD, sitting at side of bed mouth - no thrush, MMM neck - no obvious JVD sitting upright at 90 degrees heart - irregular, s1 s2, regular rate, no murmur lungs - fine, dry rales about 1/[address] up right back - no change; no rales on left; mildly decreased BS bases; no wheeze abd - soft, NT, ND, BS+, no HSM ext - no edema, pulses 2+ b/l psych - awake/alert musculo - back - tender paraspinal areas lumbar region; upper back with tense muscles Results & Data Results & Data Vital Signs (Past 12 Hours) Vital Signs Temp Pulse Pulse Resp BP Pulse Ox O2 Del Method 09/17/23 15:45 36.7 C 89 20 128/70 97 Nasal Cannula 09/17/23 15:27 90 09/17/23 10:50 36.6 C 91 H 19 130/77 98 Nasal Cannula 09/17/23 08:00 88 09/17/23 08:00 Nasal Cannula O2 Flow Rate 09/17/23 15:45 3 09/17/23 15:27 09/17/23 10:50 3 09/17/23 08:00 09/17/23 08:00 3 Laboratory Results Laboratory Results - last 24 hr 09/15/23 09/16/23 09/17/23 08:11 20:21 07:12 WBC RBC Hgb Hct MCV MCH MCHC RDW Std Deviation RDW Coeff of Vanessa Plt Count MPV Absolute Nucleated RBC Nucleated RBC % (auto) Sodium Potassium Chloride Carbon Dioxide Anion Gap BUN Creatinine Est Cr Clr Drug Dosing Est GFR ( Amer) Est GFR (Non-Af Amer) BUN/Creatinine Ratio Glucose POC Glucose 125 H 80 Calcium Serum Copper 115 09/17/23 09/17/23 09/17/23 09:57 11:22 16:30 WBC 2.60 L RBC 2.51 L Hgb 8.8 L Hct 28.8 L MCV 114.7 H MCH 35.1 H MCHC 30.6 L RDW Std Deviation 76.5 H RDW Coeff of Vanessa 18.4 H Plt Count 65 L MPV 11.4 Absolute Nucleated RBC 0.12 Nucleated RBC % (auto) 4.6 Sodium 145 Potassium 4.7 Chloride 99 Carbon Dioxide 45 H* Anion Gap 1 L BUN 60 H Creatinine 1.59 H Est Cr Clr Drug Dosing 30.7 Est GFR ( Amer) 34.7 Est GFR (Non-Af Amer) 29.9 BUN/Creatinine Ratio 37.7 H Glucose 132 H POC Glucose 188 H 173 H Calcium 8.3 L Serum Copper PG Care Time/CCT Total # of Minutes Spent Total Time Spent with Patient: Total time spent is greater than 50% in coordination of care (as documented) at patient's floor/unit and/or counseling patient: Coding Level of Care Code 48512 SUB INP/OBS CARE 235MIN Diagnoses Acute respiratory failure with hypoxia and hypercapnia J96.01; J96.02 Pancytopenia D61.818 Proctitis K62.89 Back pain of thoracolumbar region M54.50; M54.6 Chronic systolic CHF (congestive heart failure) I50.22 Pericardial effusion I31.39 Pleural effusion J90 Permanent atrial fibrillation I48.21 Obstructive sleep apnea of adult G47.33 Type 2 diabetes mellitus E11.9 Restless legs syndrome G25.81 Chronic respiratory failure with hypoxia J96.11 Acute blood loss anemia D62 Hyperkalemia E87.5 Abdominal pain R10.9 Pulmonary hypertension I27.20 Pneumonia J18.9 Metabolic encephalopathy G93.41
[2023-09-18] MEDS: predniSONE 20 MG TAB PO SCH (09:05)
[2023-09-18 09:29] LABS: BUN Creatinine Ratio 39.9 (10-20); Blood Urea Nitrogen 61 mg/dl (6-23); Calcium 8.5 mg/dl (8.6-10.3); Carbon Dioxide > 45 mmol/L (21-32); Chloride 98 mmol/L (98-107); Creatinine Clr Calc Pharmacy 31.6 ml/min; Est GFR (African American) 36.3 ml/min; Est GFR (Non-African American) 31.4 ml/min; Glucose 119 mg/dl (70-99(Fasting)); Potassium 4.5 mmol/L (3.5-5.1); Sodium 144 mmol/L (136-145)
[2023-09-18] MEDS: acetaZOLAMIDE 250 MG TAB PO ONE (11:31)
--- NOTE | 2023-09-18 17:36 | Hospitalist Progress Note ---
Date of Service September 18, 2023 Assessment & Plan (1) Acute respiratory failure with hypoxia and hypercapnia: Plan: Acute on chronic respiratory failure with hypoxia and hypercarbia acute component - decompensated CHF +/- ?pneumonia +/- COPD exacerbation s/p 5 days of rocephin which ended on 09/11, followed by 2 days of levaquin -- all abx have been stopped Had 4 days of prednisone 40mg daily, then 4 days of 30mg of prednisone; plan 3 days of 20mg, then 10's, then stop Significant contraction alkalosis today - hold lasix again today; give a dose of diamox, recheck labs in am chronic components - COPD, LEDA/OHS. Typically on 3L NC O2 continuously and nighttime CPAP - encouraged to use CPAP (ideally hospital-issued BIPAP due to CO2 retention) nightly (2) Pancytopenia: Plan: Concern is for MDS. She is s/p bone marrow bx -- results pending. Copper level pending. Other w/u - B12 217 (notably < 400 in April), folate 14, ferritin, iron studies reviewed and ok, retic count 1.72, peripheral smear with rare blasts. TSH wnl. Appreciate heme/onc consultation. Cont daily vit B12 1000mcg. She is also s/p Venofer 200 mg daily x 3 doses as well as 1 unit PRBCs on 09/10. CBC cell lines low but remain acceptable. Repeat CBC in am. (3) Proctitis: Plan: Seen on admission CT abdomen and pelvis, unclear significance. Had loose stools this admission and C. diff and stool biofire negative. Completed 5d ceftriaxone and metronidazole because neutropenic. Microwave [employer] consulted; proctitis felt unlikely. No rectal symptoms last few days. (4) Back pain of thoracolumbar region: Plan: 2nd to DJD. CT of t-spine and l-spine -- NO compression fractures, severe stenosis, etc. But OA/DJD of spine present. K-pad ordered. Lidoderm patches ordered. Prednisone for COPD - this should help back as well. gabapentin 100mg HS. (5) Chronic systolic CHF (congestive heart failure): Plan: EF was 35-40% several years ago. Most recent echos show preserved EF. Thus, systolic CHF has resolved. Her CHF is on the basis of diastolic dysfunction. THUS -- ACUTE on CHRONIC diastolic CHF. IMPROVING. has significant contraction alkalosis today - hold lasix, give dose of diamox, recheck BMP am. per NENO Meyers - CHF clinic - dry weight is about 200 pounds. weight today 208 pounds. (6) Pericardial effusion: Plan: Known diagnosis. Repeat TTE this admission unchanged, only small pericardial effusion without tamponade physiology. (7) Pleural effusion: Plan: Small - no Rx needed other than diuresis (8) Permanent atrial fibrillation: Plan: Holding apixaban due to anemia and thrombocytopenia with recent rectal bleeding Latter resolved, and platelets remain in the 70s If platelets remain stable would consider adding back Eliquis cautiously Continue metoprolol for rate control (9) Obstructive sleep apnea of adult: Plan: candidate for Trilogy unit in [place] of CPAP given hypercapnia? will ask social work team for list of criteria for Trilogy follows with [facility] - needs f/u with them post-discharge (10) Type 2 diabetes mellitus: Plan: reasonable control with some spikes cont lantus novolog ac/hs (11) Restless legs syndrome: Plan: Continue pramipexole Recent Fe infusions should have helped with symptoms as well (12) Chronic respiratory failure with hypoxia: Plan: Baseline 2-3 LPM O2 (13) Acute blood loss anemia: Plan: caused by rectal bleeding, also with bone marrow failure H/H stable last few checks (14) Hyperkalemia: Plan: resolved with holding FRAN, giving patiromer, etc BMP in am (15) Abdominal pain: Plan: improved with once daily PPI thus, gastritis and/or GERD likely the cause (16) Pulmonary hypertension: (17) Pneumonia: Plan: treated for such with rocephin x 5 days earlier in the stay + 2 days of levaquin resolved clinically (18) Metabolic encephalopathy: Plan: suspect 2nd to hypercapnia mental status improved with use of BIPAP on nights when she skips BIPAP she is often worse the next day checked ammonia - wnl repeat VBG am Plan typically lives with her who was just discharged from hospital to [facility]. PT/OT - SNF advised - likely will be ready this week DVT proph - heparin 5000 TID Admission and Anticipated Discharge Date Admission Date: September 07, 2023 Subjective tele - afib, most rates <100 during the visit she was looking out the window expressed alot of emotion today talking about her who has dementia and who was recently dx with lung cancer denies abd pain denies dyspnea at rest back pain about the same per staff she has been very inconsistent in wearing her CPAP keeps it on for 30 min, then removes it then puts it back on throughout the night intermittently eating well Review of Systems Review of Systems: cv - no chest pain pulm - no significant cough GI - no nausea/emesis Physical Exam Physical Exam: gen - obese, NAD, sitting at side of bed looking out the window mouth - no thrush, MMM neck - no obvious JVD heart - irregular, s1 s2, regular rate, no murmur lungs - fine, dry rales about [address] up right back - no change; scant rales on left; mildly decreased BS bases; no wheeze abd - soft, NT, ND, BS+, no HSM ext - no edema, pulses 2+ b/l psych - awake/alert Results & Data Results & Data Vital Signs (Past 12 Hours) Vital Signs Temp Pulse Pulse Resp BP BP Pulse Ox 09/18/23 16:53 36.3 C L 93 H 18 117/69 94 09/18/23 15:03 91 H 09/18/23 12:20 36.5 C 88 18 115/69 94 09/18/23 08:00 69 09/18/23 08:00 09/18/23 07:17 36.3 C L 73 18 131/63 93 O2 Del Method O2 Flow Rate 09/18/23 16:53 Nasal Cannula 2 09/18/23 15:03 09/18/23 12:20 Nasal Cannula 2 09/18/23 08:00 09/18/23 08:00 Nasal Cannula 3 09/18/23 07:17 Nasal Cannula 2 Laboratory Results Laboratory Results - last 24 hr 09/15/23 09/17/23 09/18/23 08:11 20:05 07:28 Sodium Potassium Chloride Carbon Dioxide Anion Gap BUN Creatinine Est Cr Clr Drug Dosing Est GFR ( Amer) Est GFR (Non-Af Amer) BUN/Creatinine Ratio Glucose POC Glucose 230 H 70 Calcium Serum Copper 115 09/18/23 09/18/23 09/18/23 08:39 11:17 16:11 Sodium 144 Potassium 4.5 Chloride 98 Carbon Dioxide > 45 H* Anion Gap TNP BUN 61 H Creatinine 1.53 H Est Cr Clr Drug Dosing 31.6 Est GFR ( Amer) 36.3 Est GFR (Non-Af Amer) 31.4 BUN/Creatinine Ratio 39.9 H Glucose 119 H POC Glucose 121 H 250 H Calcium 8.5 L Serum Copper PG Care Time/CCT Total # of Minutes Spent Total Time Spent with Patient: Total time spent is greater than 50% in coordination of care (as documented) at patient's floor/unit and/or counseling patient: Coding Level of Care Code 48616 SUB INP/OBS CARE 2/35MIN Diagnoses Acute respiratory failure with hypoxia and hypercapnia J96.01; J96.02 Pancytopenia D61.818 Proctitis K62.89 Back pain of thoracolumbar region M54.50; M54.6 Chronic systolic CHF (congestive heart failure) I50.22 Pericardial effusion I31.39 Pleural effusion J90 Permanent atrial fibrillation I48.21 Obstructive sleep apnea of adult G47.33 Type 2 diabetes mellitus E11.9 Restless legs syndrome G25.81 Chronic respiratory failure with hypoxia J96.11 Acute blood loss anemia D62 Hyperkalemia E87.5 Abdominal pain R10.9 Pulmonary hypertension I27.20 Pneumonia J18.9 Metabolic encephalopathy G93.41
[2023-09-19 06:56] LABS: Base Excess VBG 15.5 mEq/L; HCO3 VBG 45 mmol/L; Oxygen Saturation VBG 96.8 %; PCO2 VBG 93 mmHg (38-50); PO2 VBG 79 mmHg; pH VBG 7.29 (7.36-7.41)
[2023-09-19 07:08] LABS: Hematocrit (blood only) 26.5 % (37.0-47.0); Hemoglobin 8.4 g/dl (12.0-16.0); Mean Corpuscular Hemoglobin 35.3 pg (25.0-34.0); Mean Corpuscular Hgb Conc 31.7 g/dL (32.0-36.0); Mean Corpuscular Volume 111.3 fL (80.0-100.0); Mean Platelet Volume 11.7 fL (9.4-12.4); Nucleated RBC # (auto) 0.08 K/uL (0.00-0.12); Nucleated RBC % (auto) 3.1 %; Platelet Count 64 K/uL (130-400); RDW Coefficient of Variation 18.1 % (11.5-14.5); RDW Standard Deviation 72.9 fL (36.4-46.3); Red Blood Count 2.38 M/uL (4.20-5.40); White Blood Count 2.55 K/ul (4.8-10.8)
[2023-09-19 07:35] LABS: BUN Creatinine Ratio 38.6 (10-20); Calcium 8.4 mg/dl (8.6-10.3); Creatinine Clr Calc Pharmacy 31.7 ml/min; Est GFR (African American) 36.3 ml/min; Est GFR (Non-African American) 31.4 ml/min; Magnesium 2.4 mg/dl (1.7-2.4); Potassium 4.7 mmol/L (3.5-5.1)
--- NOTE | 2023-09-19 11:46 | Hospitalist Progress Note ---
Date of Service September 19, 2023 Assessment & Plan (1) Metabolic encephalopathy: Plan: 2nd to worsening hypercapnia 2nd to benzo withdrawal did improve s/p IV ativan earlier today and using BIPAP nearly all day today cxr this afternoon w/o any pneumonia previous ammonia levels wnl Na level wnl could consider CT head but defer for now (2) Benzodiazepine withdrawal with delirium: Plan: although MAR from admission shows ativan 1mg HS "PRN" family confirmed she uses this nearly every night has been on ativan for some time this is chronic med for her she has only had 1 dose in the last 4-5 days suspect withdrawal gave ativan 0.25mg IV x 1 late morning with excellent results will plan ativan 0.5mg orally at bedtime scheduled (was on 1mg at home, but in light of elevated CO2 levels, will use 1/2 dose to be safe) (3) Acute on chronic respiratory failure with hypoxia and hypercapnia: Plan: acute component - decompensated CHF +/- ?pneumonia +/- COPD exacerbation -- all made worse by very inconsistent/limited use of CPAP or BIPAP over the last 3-4 days she may have used PPV 1-2 hours in total we have made multiple adjustments on her BIPAP today in response to serial VBGs RR and pressures have been adjusted by respiratory therapy s/p 5 days of rocephin which ended on 09/11, followed by 2 days of levaquin -- all abx have been stopped Had 4 days of prednisone 40mg daily, then 4 days of 30mg of prednisone; plan 3 days of 20mg, then 10's, then stop Significant contraction alkalosis and appropriate alkalotic response to her resp acidosis - hold lasix again today BMP am chronic components - COPD, LEDA/OHS. Typically on 3L NC O2 continuously and nighttime CPAP - encouraged to use CPAP (ideally hospital-issued BIPAP due to CO2 retention) nightly but this has been a struggle ALL admission Ideally AVAPS (Trilogy) would be best for her Closer to discharge need to speak with social work about criteria for getting this Not sure she will comply with BIPAP or AVAPS, however (4) Pancytopenia: Plan: Concern is for MDS. She is s/p bone marrow bx -- results pending. Copper level wnl. Other w/u - B12 217 (notably < 400 in April), folate 14, ferritin, iron studies reviewed and ok, retic count 1.72, peripheral smear with rare blasts. TSH wnl. Appreciate heme/onc consultation. Cont daily vit B12 1000mcg. She is also s/p Venofer 200 mg daily x 3 doses as well as 1 unit PRBCs on 09/10. CBC cell lines low but remain acceptable. (5) Proctitis: Plan: Seen on admission CT abdomen and pelvis, unclear significance. Had loose stools this admission and C. diff and stool biofire negative. Completed 5d ceftriaxone and metronidazole because neutropenic. Musician Instrumental consulted; proctitis felt unlikely. No rectal symptoms last few days. (6) Back pain of thoracolumbar region: Plan: 2nd to DJD. CT of t-spine and l-spine -- NO compression fractures, severe stenosis, etc. Bu t OA/DJD of spine present. K-pad ordered. Lidoderm patches ordered. Prednisone for COPD - this should help back as well. gabapentin 100mg HS. avoid narcotics due to hypercapnia. (7) Chronic systolic CHF (congestive heart failure): Plan: EF was 35-40% several years ago. Most recent echos show preserved EF. Thus, systolic CHF has resolved. Her CHF is on the basis of diastolic dysfunction. THUS -- ACUTE on CHRONIC diastolic CHF. IMPROVING. has significant contraction alkalosis again today - hold lasix. per NENO Meyers - CHF clinic - dry weight is about 200 pounds. weight is ~208 pounds. cxr today still with mild pulm edema. try diuresing tomorrow pending her AM labs. (8) Pericardial effusion: Plan: Known diagnosis. Repeat TTE this admission unchanged, only small pericardial effusion without tamponade physiology. (9) Pleural effusion: Plan: Small - no Rx needed other than diuresis (10) Permanent atrial fibrillation: Plan: Holding apixaban due to anemia and thrombocytopenia with recent rectal bleeding Latter resolved, and platelets remain in the 60s-70s If platelets remain stable would consider adding back Eliquis cautiously Continue metoprolol for rate control (11) Obstructive sleep apnea of adult: Plan: candidate for Trilogy unit in [place] of CPAP given hypercapnia? will ask social work team for list of criteria for Trilogy follows with [facility] - needs f/u with them post-discharge last visit was 03/2023 with Ashkan LAZCANO (12) Type 2 diabetes mellitus: Plan: reasonable control cont lantus cont novolog ac/hs (13) Restless legs syndrome: Plan: Continue pramipexole (14) Chronic respiratory failure with hypoxia: Plan: Baseline 2-3 LPM O2 continuously (15) Acute blood loss anemia: Plan: caused by rectal bleeding, also with bone marrow failure H/H stable last few checks (16) Abdominal pain: Plan: improved with once daily PPI thus, gastritis and/or GERD likely the cause CT a/p with gallstones but no symptoms to suggest such (no pain with eating, no postprandial pain, etc) (17) Pulmonary hypertension: Plan: 2nd COPD, OHS/LEDA, etc cont NC o2 while awake (18) Pneumonia: Plan: treated for such with rocephin x 5 days earlier in the stay + 2 days of levaquin resolved clinically off all abx Plan typically lives with her who was just discharged from hospital to [facility]. he was just dx with lung cancer. he has dementia as well. PT/OT - SNF advised DVT proph - heparin 5000 TID daughter extensively updated by phone this evening Admission and Anticipated Discharge Date Admission Date: September 07, 2023 Subjective by nursing report the patient was up ALL Night last pm did not use CPAP or BIPAP today she is very restless, agitated during my AM visit she was very restless, pulling at mask, rolling in bed, mumbling incoherent speech she was unable to follow any commands VBG this am with resp acidosis with pCO2 >90 review of PDMP shows nearly every month refills for ativan 1mg HS I confirmed with daughter she uses the ativan not really prn but pretty much each night scheduled thus, suspect benzo withdrawal gave ativan 0.25mg IV x 1 shortly after my visit this helped TREMENDOUSLY with extinguishing the restlessness she wore the BIPAP for the rest of the day at dinner-time (5pm) the BIPAP was removed and she amazingly was awake/alert and ate 100% of dinner I performed a 2nd visit about 6pm this evening and, although she was still confused, was much more calm and able to follow commands she was not listless tele - a.fib, some rates >100 Review of Systems Review of Systems: GI - denies abd pain CV - no chest pain pulm - no dyspnea at rest Physical Exam Physical Exam: AM visit exam: gen - obese, BIPAP mask on, rolling in bed, listless, confused heart - irregular, s1 s2, tachy, no murmur lungs - fine, dry rales about 1/[address] up right back - no change; scant rales on left; mildly decreased BS bases; no wheeze; no increased work of breathing abd - soft, NT, ND, BS+, no HSM ext - no edema, pulses 2+ b/l psych - confused PM exam: gen - sitting at side of bed, more calm, not listless, mild myoclonus/twitching seen neck - no JVD sitting at 90 degrees heart - irregular, s1 s2, rate now <100 lungs - unchanged exam abd - soft ext - no edema psych - more awake, more alert, still confused but much improved from prior Results & Data Results & Data Vital Signs (Past 12 Hours) Vital Signs Temp Pulse Pulse Resp BP BP Pulse Ox 09/19/23 09:42 80 18 95 09/19/23 07:10 36.2 C L 79 18 116/75 99 09/19/23 03:41 36.5 C 90 18 126/76 93 09/19/23 00:01 O2 Del Method O2 Flow Rate FiO2 09/19/23 09:42 40 09/19/23 07:10 Nasal Cannula 4 09/19/23 03:41 Nasal Cannula 4 09/19/23 00:01 Nasal Cannula 4 Laboratory Results Laboratory Results - last 24 hr 09/18/23 09/18/23 09/19/23 16:11 20:17 06:27 WBC 2.55 L RBC 2.38 L Hgb 8.4 L Hct 26.5 L MCV 111.3 H MCH 35.3 H MCHC 31.7 L RDW Std Deviation 72.9 H RDW Coeff of Vanessa 18.1 H Plt Count 64 L MPV 11.7 Absolute Nucleated RBC 0.08 Nucleated RBC % (auto) 3.1 VBG pH 7.29 L VBG pCO2 93 H VBG pO2 79 VBG HCO3 45 VBG O2 Saturation 96.8 VBG Base Excess 15.5 Sodium 142 Potassium 4.7 Chloride 99 Carbon Dioxide 43 H* Anion Gap 0 L BUN 59 H Creatinine 1.53 H Est Cr Clr Drug Dosing 31.7 Est GFR ( Amer) 36.3 Est GFR (Non-Af Amer) 31.4 BUN/Creatinine Ratio 38.6 H Glucose 90 POC Glucose 250 H 237 H Calcium 8.4 L Magnesium 2.4 09/19/23 09/19/23 07:08 11:27 WBC RBC Hgb Hct MCV MCH MCHC RDW Std Deviation RDW Coeff of Vanessa Plt Count MPV Absolute Nucleated RBC Nucleated RBC % (auto) VBG pH VBG pCO2 VBG pO2 VBG HCO3 VBG O2 Saturation VBG Base Excess Sodium Potassium Chloride Carbon Dioxide Anion Gap BUN Creatinine Est Cr Clr Drug Dosing Est GFR ( Amer) Est GFR (Non-Af Amer) BUN/Creatinine Ratio Glucose POC Glucose 97 170 H Calcium Magnesium Diagnostic Findings Chest X-Ray 09/19/23 16:55 XR chest 1V portable CLINICAL HISTORY: acute/chronic resp failure TECHNIQUE: Single frontal radiograph of the chest was obtained. Comparison: Comparison is made to chest radiograph 09/10/2023 FINDINGS: ACDF is seen. Cardiomegaly is noted. Prominence and cephalization of the vasculature is seen. Small bilateral pleural effusions are seen. IMPRESSION: Cardiomegaly and mild pulmonary edema. Small bilateral pleural effusions. ACT 112: Negative or not required by law. Electronically signed by: Juice Diaz M.D. 09/19/2023 5:54 PM PG Care Time/CCT Total # of Minutes Spent Total Time Spent with Patient: Total time spent is greater than 50% in coordination of care (as documented) at patient's floor/unit and/or counseling patient: Coding Level of Care Code 40478 SUB INP/OBS CARE 3/50MIN Diagnoses Metabolic encephalopathy G93.41 Benzodiazepine withdrawal with delirium F13.931 Acute on chronic respiratory failure with hypoxia and hypercapnia J96.21; J96.22 Pancytopenia D61.818 Proctitis K62.89 Back pain of thoracolumbar region M54.50; M54.6 Chronic systolic CHF (congestive heart failure) I50.22 Pericardial effusion I31.39 Pleural effusion J90 Permanent atrial fibrillation I48.21 Obstructive sleep apnea of adult G47.33 Type 2 diabetes mellitus E11.9 Restless legs syndrome G25.81 Chronic respiratory failure with hypoxia J96.11 Acute blood loss anemia D62 Abdominal pain R10.9 Pulmonary hypertension I27.20 Pneumonia J18.9
[2023-09-19] MEDS: LORazepam 0.25 MG in SYRINGE 0.125 ML IV ONE (12:48)
[2023-09-19 16:13] LABS: Base Excess VBG 10.6 mEq/L; HCO3 VBG 42 mmol/L; Oxygen Saturation VBG < 60.0 %; PCO2 VBG 93 mmHg (38-50); PO2 VBG 35 mmHg; pH VBG 7.26 (7.36-7.41)
--- NOTE | 2023-09-19 17:55 | XRay Report ---
XR chest 1V portable CLINICAL HISTORY: acute/chronic resp failure TECHNIQUE: Single frontal radiograph of the chest was obtained. Comparison: Comparison is made to chest radiograph 09/10/2023 FINDINGS: ACDF is seen. Cardiomegaly is noted. Prominence and cephalization of the vasculature is seen. Small b ilateral pleural effusions are seen. IMPRESSION: Cardiomegaly and mild pulmonary edema. Small bilateral pleural effusions. ACT 112: Negative or not required by law. Electronically signed by: Juice Diaz M.D. 09/19/2023 5:54 PM
[2023-09-19] MEDS: LORazepam 0.5 MG in SYRINGE 0.25 ML IV STA (22:36)
[2023-09-20 09:56] LABS: Base Excess VBG 13.9 mEq/L; HCO3 VBG 46 mmol/L; Oxygen Saturation VBG < 60.0 %; PCO2 VBG 102 mmHg (38-50); PO2 VBG 21 mmHg; pH VBG 7.26 (7.36-7.41)
[2023-09-20 11:32] LABS: BUN Creatinine Ratio 36.3 (10-20); Calcium 8.7 mg/dl (8.6-10.3); Est GFR (African American) 32.5 ml/min; Potassium 4.5 mmol/L (3.5-5.1)
--- NOTE | 2023-09-20 18:47 | Hospitalist Progress Note ---
Date of Service September 20, 2023 Assessment & Plan (1) Metabolic encephalopathy: Plan: 2nd to worsening hypercapnia 2nd to benzo withdrawal did improve s/p IV ativan 09/19 and resumption of 0.5 mg po HS remains severely hypercarbic (100 on vbg today) despite over a week of some amount of HS Bipap calm today and as oriented as she has been throughout (2) Benzodiazepine withdrawal with delirium: Plan: although MAR from admission shows ativan 1mg HS "PRN" family confirmed she uses this nearly every night has been on ativan for some time will continue ativan 0.5mg orally at bedtime scheduled (was on 1mg at home, but in light of elevated CO2 levels, reduced dose) (3) Acute on chronic respiratory failure with hypoxia and hypercapnia: Plan: acute component - decompensated CHF +/- ?pneumonia +/- COPD exacerbation -- all made worse by very inconsistent/limited use of CPAP or BIPAP Bipap settings adjusted 09/19 by RT s/p 5 days of rocephin which ended on 09/11, followed by 2 days of levaquin -- all abx have been stopped Had 4 days of prednisone 40mg daily, then 4 days of 30mg of prednisone; plan 3 days of 20mg, then 10's, then stop Significant contraction alkalosis and appropriate alkalotic response to her resp acidosis - - resumed oral lasix chronic components - COPD, LEDA/OHS. Typically on 3L NC O2 continuously and nighttime CPAP - encouraged to use CPAP (ideally hospital-issued BIPAP due to CO2 retention) nightly but this has been a struggle ALL admission Consider Bipap or AVAPS for discharge, however, has not tolerated/been compliant with it thus far and remains hypercabic (4) Pancytopenia: Plan: Hematology/oncology Dr. Archer consulted this admission Reviewed bone marrow biopsy results with Dr. Archer 09/20 - consistent with MDS with complex cytogenetics. Manual blast count fortunately has been low at 2% Copper level wnl. Other w/u - B12 217 (notably < 400 in April), folate 14, ferritin, iron studies reviewed and ok, retic count 1.72, peripheral smear with rare blasts. TSH wnl. Cont daily vit B12 1000mcg. She is also s/p Venofer 200 mg daily x 3 doses as well as 1 unit PRBCs on 2/10. Per my discussion with Dr. Archer overall prognosis from this MDS is about a year, treatment would be low intensity as outpatient - 5d a week infusion - currently option is supportive care / transfusion as needed because she is too medically ill to tolerate targeted MDS treatment (5) Proctitis: Plan: Seen on admission CT abdomen and pelvis, unclear significance. Had loose stools this admission and C. diff and stool biofire negative. Completed 5d ceftriaxone and metronidazole because neutropenic. Cement Gun Operator consulted; proctitis felt unlikely. No rectal symptoms last few days. (6) Back pain of thoracolumbar region: Plan: 2nd to DJD. CT of t-spine and l-spine -- NO compression fractures, severe stenosis, etc. But OA/DJD of spine present. K-pad ordered. Lidoderm patches ordered. Prednisone for COPD - this should help back as well. gabapentin 100mg HS. avoid narcotics due to hypercapnia. (7) Chronic systolic CHF (congestive heart failure): Plan: EF was 35-40% several years ago. Most recent echos show preserved EF. Thus, systolic CHF has resolved. Her CHF is on the basis of diastolic dysfunction. Treated for acute on chronic HfpEF this admission with IV lasix and dyspnea improved has significant contraction alkalosis - holding active diuresis and continue oral lasix per NENO Meyers - CHF clinic - dry weight is about 200 pounds. weight is ~210 pounds today. (8) Pericardial effusion: Plan: Known diagnosis. Repeat TTE this admission unchanged, only small pericardial effusion without tamponade physiology. (9) Pleural effusion: Plan: Small - no Rx needed other than diuresis (10) Permanent atrial fibrillation: Plan: Holding apixaban due to anemia and thrombocytopenia with recent rectal bleeding Latter resolved, and platelets remain in the 60s-70s If platelets remain stable would consider adding back Eliquis cautiously Continue metoprolol for rate control (11) Obstructive sleep apnea of adult: Plan: candidate for Trilogy unit in [place] of CPAP given hypercapnia? will ask social work team for list of criteria for Trilogy follows with [facility] - needs f/u with them post-discharge last visit was 03/2023 with Ashkan LAZCANO (12) Type 2 diabetes mellitus: Plan: held glargine for hypoglycemia 09/20 cont novolog ac/hs (13) Restless legs syndrome: Plan: Continue pramipexole (14) Chronic respiratory failure with hypoxia: Plan: Baseline 2-3 LPM O2 continuously (15) Acute blood loss anemia: Plan: caused by rectal bleeding, also with bone marrow failure H/H stable last few checks (16) Abdominal pain: Plan: improved with once daily PPI thus, gastritis and/or GERD likely the cause CT a/p with gallstones but no symptoms to suggest such (no pain with eating, no postprandial pain, etc) (17) Pulmonary hypertension: Plan: 2nd COPD, OHS/LEDA, etc cont NC o2 while awake (18) Pneumonia: Plan: treated for such with rocephin x 5 days earlier in the stay + 2 days of levaquin resolved clinically off all abx Plan typically lives with her who was just discharged from hospital to [facility]. he was just dx with lung cancer. he has dementia as well. PT/OT - SNF advised DVT proph - heparin 5000 TID daughter updated by phone 09/19 Admission and Anticipated Discharge Date Admission Date: September 07, 2023 Subjective doing better today, no agitation, denied shortness of breath, Bipap was placed last night unclear how much she wore it denies back/abdominal pain at this time Physical Exam 2 Physical Exam: PHYSICAL EXAMINATION Last 24h vital signs reviewed, see documentation in flowsheet General: sitting on EOB awake HEENT: Normocephalic, atraumatic, pupils round and equal, sclerae anicteric, no conjunctival injection, moist mucus membranes Lungs: breathing nonlabored, no wheezing, slight basilar crackles Heart: Regular rate and rhythm, no murmurs. No JVD Abdomen: Soft, nontender, nondistended. no rrg Bowel sounds present. Extremities: Warm, dry, well-perfused. 1+ extremity edema. Neuro: awake alert but not well oriented to situation, remains confused, +asterixis, face symmetric, moves 4 extremities well. Psych: Normal affect and behavior Results & Data Results & Data Vital Signs (Past 12 Hours) Vital Signs Temp Pulse Resp BP Pulse Ox O2 Del Method O2 Flow Rate 09/20/23 15:12 36.6 C 84 18 105/60 98 Nasal Cannula 09/20/23 11:22 36.7 C 87 18 103/57 L 93 Nasal Cannula 3 09/20/23 07:57 36.6 C 09/20/23 07:56 60 18 120/81 95 BiPAP Laboratory Results 09/19/23 06:27 09/20/23 10:38 PG Care Time/CCT Total # of Minutes Spent Total Time Spent with Patient: Total time spent is greater than 50% in coordination of care (as documented) at patient's floor/unit and/or counseling patient: Coding Level of Care Code 65470 SUB INP/OBS CARE 2/35MIN Diagnoses Metabolic encephalopathy G93.41 Benzodiazepine withdrawal with delirium F13.931 Acute on chronic respiratory failure with hypoxia and hypercapnia J96.21; J96.22 Pancytopenia D61.818 Proctitis K62.89 Back pain of thoracolumbar region M54.50; M54.6 Chronic systolic CHF (congestive heart failure) I50.22 Pericardial effusion I31.39 Pleural effusion J90 Permanent atrial fibrillation I48.21 Obstructive sleep apnea of adult G47.33 Type 2 diabetes mellitus E11.9 Restless legs syndrome G25.81 Chronic respiratory failure with hypoxia J96.11 Acute blood loss anemia D62 Abdominal pain R10.9 Pulmonary hypertension I27.20 Pneumonia J18.9
[2023-09-20] MEDS: LORazepam 0.5 MG TAB PO SCH (20:35)
--- NOTE | 2023-09-21 19:30 | Hospitalist Progress Note ---
Date of Service September 21, 2023 Assessment & Plan (1) Acute on chronic respiratory failure with hypoxia and hypercapnia: Plan: acute component - decompensated CHF +/- ?pneumonia +/- COPD exacerbation -- all made worse by very inconsistent/limited use of CPAP or BIPAP Bipap settings adjusted 09/19 by RT s/p 5 days of rocephin which ended on 09/11, followed by 2 days of levaquin -- all abx have been stopped Treated for possible acute exacerbation of COPD: Had 4 days of prednisone 40mg daily, then 4 days of 30mg of prednisone; plan 3 days of 20mg, then 10's, then stop. Not wheezing currently Diuresed with IV lasix for several days as well. Developed significant contraction alkalosis - resumed oral lasix, can try to increase if alkalosis improved - am vbg chronic components - COPD, LEDA/OHS. Typically on 3L NC O2 continuously and nighttime CPAP - encouraged to use Bipap nightly but this has been a struggle ALL admission Consider Bipap or AVAPS for discharge, however, has not tolerated/been compliant with it thus far and remains hypercarbic Her clinical trajectory is very concerning - she has failed to improve with respect to her respiratory status over the past two weeks despite treatment for pneumonia, diuresis, trial of steroids, trial of bipap with which she cannot tolerate/cooperate. Home bipap/avaps not a viable option if she cannot/will not use it. Discussed this with her daughter at bedside. She reiterates Valeri would not want to be on a ventilator. We also reviewed the bone marrow biopsy finding of MDS, which is not an immediate threat but carries a prognosis of about a year. Plan to consult palliative care. (2) Metabolic encephalopathy: Plan: 2nd to worsening hypercapnia 2nd to benzo withdrawal did improve s/p IV ativan 09/19 and resumption of 0.5 mg po HS remains severely hypercarbic (100 on vbg) despite over a week of some amount of HS Bipap mentation reasonably good last two days with some baseline confusion/forgetfulness per her family -AM vbg, BMP (3) Benzodiazepine withdrawal with delirium: Plan: although MAR from admission shows ativan 1mg HS "PRN" family confirmed she uses this nearly every night has been on ativan for some time will continue ativan 0.5mg orally at bedtime scheduled (was on 1mg at home, but in light of elevated CO2 levels, reduced dose) -no further evidence of withdrawal at this time (4) Pancytopenia: Plan: Hematology/oncology Dr. Archer consulted this admission Reviewed bone marrow biopsy results with Dr. Archer 09/20 - consistent with MDS with complex cytogenetics. Manual blast count fortunately has been low at 2% Copper level wnl. Other w/u - B12 217 (notably < 400 in April), folate 14, ferritin, iron studies reviewed and ok, retic count 1.72, peripheral smear with rare blasts. TSH wnl. Cont daily vit B12 1000mcg. She is also s/p Venofer 200 mg daily x 3 doses as well as 1 unit PRBCs on 09/10. Per my discussion with Dr. Archer overall prognosis from this MDS is about a year, treatment would be low intensity as outpatient - 5d a week infusion - currently option is supportive care / transfusion as needed because she is too medically ill to tolerate targeted MDS treatment - updated her daughter with these results 09/21 (5) Proctitis: Plan: Seen on admission CT abdomen and pelvis, unclear significance. Had loose stools this admission and C. diff and stool biofire negative. Completed 5d ceftriaxone and metronidazole because neutropenic. Brush Sander consulted; proctitis felt unlikely. 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 CT of t-spine and l-spine -- NO compression fractures, severe stenosis, etc. But OA/DJD of spine present. K-pad ordered. Lidoderm patches ordered. Prednisone for COPD - this should help back as well. gabapentin 100mg HS. avoid narcotics due to hypercapnia. (7) Chronic systolic CHF (congestive heart failure): Plan: EF was 35-40% several years ago. Most recent echos show preserved EF. Thus, systolic CHF has resolved. Her CHF is on the basis of diastolic dysfunction. Treated for acute on chronic HfpEF this admission with IV lasix and dyspnea improved has significant contraction alkalosis - holding active diuresis and continue oral lasix per NENO Meyers - CHF clinic - dry weight is about 200 pounds. weight is ~210 pounds today. (8) Pericardial effusion: Plan: Known diagnosis. Repeat TTE this admission unchanged, only small pericardial effusion without tamponade physiology. (9) Pleural effusion: Plan: Small - no Rx needed other than diuresis (10) Permanent atrial fibrillation: Plan: Holding apixaban due to anemia and thrombocytopenia with recent rectal bleeding Latter resolved, and platelets remain in the 60s-70s If platelets remain stable would consider adding back Eliquis cautiously Continue metoprolol for rate control (11) Obstructive sleep apnea of adult: Plan: follows with [facility] - needs f/u with them post-discharge last visit was 03/2023 with Ashkan LAZCANO (12) Type 2 diabetes mellitus: Plan: held glargine for hypoglycemia 09/20 cont novolog ac/hs BG labile but acceptable 09/21 (13) Restless legs syndrome: Plan: Continue pramipexole (14) Chronic respiratory failure with hypoxia: Plan: Baseline 2-3 LPM O2 continuously (15) Acute blood loss anemia: Plan: caused by rectal bleeding, also with bone marrow failure H/H stable last few checks AM CBC (16) Abdominal pain: Plan: improved with once daily PPI thus, gastritis and/or GERD likely the cause CT a/p with gallstones but no symptoms to suggest such (no pain with eating, no postprandial pain, etc) (17) Pulmonary hypertension: Plan: 2nd COPD, OHS/LEDA, etc cont NC o2 while awake (18) Pneumonia: Plan: treated for such with rocephin x 5 days earlier in the stay + 2 days of levaquin resolved clinically off all abx Plan typically lives with her who was just discharged from hospital to [facility]. he was just dx with lung cancer. he has dementia as well. PT/OT - SNF advised DVT proph - heparin 5000 TID daughter updated by phone 09/19, at bedside 09/21 Admission and Anticipated Discharge Date Admission Date: September 07, 2023 Subjective sitting up in chair, daughter visiting at bedside remains mildly confused and with some tremor/asterixis breathing is improved compared to several days ago Physical Exam 2 Physical Exam: PHYSICAL EXAMINATION Last 24h vital signs reviewed, see documentation in flowsheet General: sitting in chair HEENT: Normocephalic, atraumatic, pupils round and equal, sclerae anicteric, no conjunctival injection, moist mucus membranes Lungs: breathing nonlabored Heart: Regular rate and rhythm, no murmurs. No JVD Abdomen: Soft, nontender, nondistended. Extremities: Warm, dry, well-perfused. 1+ extremity edema unchanged. Neuro: awake alert but not well oriented to situation, remains confused, +asterixis, face symmetric, moves 4 extremities well. unchanged Psych: Normal affect and behavior Results & Data Results & Data Vital Signs (Past 12 Hours) Vital Signs Temp Pulse Resp BP BP Pulse Ox O2 Del Method 09/21/23 19:04 114/71 09/21/23 19:01 36.7 C 88 14 91/61 L 94 Nasal Cannula 09/21/23 15:28 36.6 C 101 H 21 122/60 100 Nasal Cannula 09/21/23 11:50 36.8 C 77 19 136/67 98 Nasal Cannula 09/21/23 07:18 36.5 C 87 19 111/69 96 Nasal Cannula O2 Flow Rate 09/21/23 19:04 09/21/23 19:01 3 09/21/23 15:28 3 09/21/23 11:50 4 09/21/23 07:18 4 Laboratory Results 09/19/23 06:27 09/20/23 10:38 PG Care Time/CCT Total # of Minutes Spent Total Time Spent with Patient: Total time spent is greater than 50% in coordination of care (as documented) at patient's floor/unit and/or counseling patient: Coding Level of Care Code 58724 SUB INP/OBS CARE 3/50MIN Diagnoses Acute on chronic respiratory failure with hypoxia and hypercapnia J96.21; J96.22 Metabolic encephalopathy G93.41 Benzodiazepine withdrawal with delirium F13.931 Pancytopenia D61.818 Proctitis K62.89 Back pain of thoracolumbar region M54.50; M54.6 Chronic systolic CHF (congestive heart failure) I50.22 Pericardial effusion I31.39 Pleural effusion J90 Permanent atrial fibrillation I48.21 Obstructive sleep apnea of adult G47.33 Type 2 diabetes mellitus E11.9 Restless legs syndrome G25.81 Chronic respiratory failure with hypoxia J96.11 Acute blood loss anemia D62 Abdominal pain R10.9 Pulmonary hypertension I27.20 Pneumonia J18.9
[2023-09-22 08:34] LABS: Base Excess VBG 14.3 mEq/L; HCO3 VBG 44 mmol/L; Oxygen Saturation VBG < 60.0 %; PCO2 VBG 98 mmHg (38-50); PO2 VBG < 20 mmHg; pH VBG 7.26 (7.36-7.41)
[2023-09-22 08:47] LABS: Hematocrit (blood only) 28.4 % (37.0-47.0); Hemoglobin 8.6 g/dl (12.0-16.0); Mean Corpuscular Hemoglobin 34.4 pg (25.0-34.0); Mean Corpuscular Hgb Conc 30.3 g/dL (32.0-36.0); Mean Corpuscular Volume 113.6 fL (80.0-100.0); Mean Platelet Volume 11.7 fL (9.4-12.4); Nucleated RBC # (auto) 0.04 K/uL (0.00-0.12); Nucleated RBC % (auto) 1.4 %; Platelet Count 57 K/uL (130-400); RDW Coefficient of Variation 18.4 % (11.5-14.5); RDW Standard Deviation 77.2 fL (36.4-46.3); White Blood Count 2.83 K/ul (4.8-10.8)
[2023-09-22 09:04] LABS: BUN Creatinine Ratio 37.9 (10-20); Calcium 8.8 mg/dl (8.6-10.3); Creatinine Clr Calc Pharmacy 33.8 ml/min; Est GFR (African American) 38.8 ml/min; Est GFR (Non-African American) 33.5 ml/min; Potassium 4.6 mmol/L (3.5-5.1)
--- NOTE | 2023-09-22 10:31 | Palliative Care Consultation ---
Date of Consultation September 22, 2023 Assessment & Plan (1) Dyspnea and respiratory abnormalities: (2) Weakness generalized: (3) Social isolation: (4) Advanced care planning/counseling discussion: I met with patient and her daughter Yaritza at the bedside x 60min for a face to face ACP. Yaritza notes that I very recently took care of their father, Aleks Davis. He is currently admitted to [facility] at the dementia unit for hospice. He also has an incurable lung cancer. With consent from both the patient and her daughter Yaritza, and their voluntary participation, we proceeded to discuss advance care planning in the setting of her serious medical illness. We discussed nares acute on chronic respiratory failure with hypoxia and hypercapnia exacerbated by her heart failure, COPD, asthma, intolerance to BiPAP, and obesity hypoventilation. We discussed that she has failed to improve over the prior 2 weeks in spite of multiple escalating therapies including noninvasive ventilation, diuresis, steroids, and other medications. She is intolerant of noninvasive ventilation and does not wish to pursue this. She also has trouble remaining any type of adherence to her medical regimens at home. She has not been willing to engage or participate with physical therapy at home or in the hospital. She has been accepted for a bed at [facility] and while she is aware her is there, she remains nervous about going because she feels that his behavioral issues will worsen if he knows she is there and he will demand that they be together at all times. Provided reassurance that he is in the dementia unit which is a locked unit and would not have access to roam about the facility freely and therefore compliant care. Also discussed today the findings of her pancytopenia and the medical oncology evaluation. 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 Overall prognosis from MDS is approximately 1 year with low intensity chemotherapy which would likely consist of 5 days a week of infusion. Additional options include supportive care with transfusions as needed. I reviewed with her very carefully that she is too medically frail to tolerate any type of targeted MDS treatment. Her daughter is aware of this as well and in agreement that no aggressive therapies would be desired. Patient also confirms that she does not want to have any escalating or invasive medical interventions and would prefer a focus that is more directed on quality of life and comfort. Ultimately she wishes to be able to return home and is very frustrated and dismayed to hear about having to go to a retirement. She feels that all her choices are being taken away from her. She does not understand why she does not have enough help at home to be safe. Currently, her granddaughter has been helping provide some of her care at home but is only an approved caregiver for approximately 6 hours. The family is in the process of seeking to have her home support hours increase but note that this can take several weeks to months with the [facility] on aging. They have also applied for the waiver program. We discussed options for moving forward which could potentially include returning home against the recommendations of medical team to possibly with the addition of hospice versus going to the retirement for a trial of rehab with the intentions of working towards getting as strong as she possibly can before then potentially returning home with the addition of hospice. We discussed the goals of hospice as a patient service and the goals of care; we discussed EOL trajectories and transitions viri the emotional impact of realizing mortality as a concrete reality from prior abstract considerations. Pt was reassured that no matter where they are along this trajectory, they are not alone - their medical team will remain by their side through their journey. Di scussed the pros/cons of accepting help when especially weakened and distressed by pain-which would also help provide relief/decrease caregiver burden/strain. I provided education about the hospice benefit: an interdisciplinary program offered by nurses, nurses aides, social workers, chaplains and a medical records receptionist for patients with a terminal condition and a life expectancy of less than 6 months. This is covered by Medicare at 100%/no out of pocket expense to patient and all meds/supplies needed by patient for the reason they are on hospice are paid for/covered by hospice. The goal is assure quality of life of the patient in their home setting (home, retirement, inpatient hospice setting) by providing symptoms management, psychosocial and spiritual support. However, they cannot offer 24 hours care and if the family is unable to provide that care, they will have to consider personal care with out of pocket cost vs. retirement placement. We discussed the goals of hospice as a patient service and the goals of care; we discussed EOL trajectories and transitions viri the emotional impact of realizing mortality as a concrete reality from prior abstract considerations. Pt was reassured that no matter where they are along this trajectory, they are not alone - their medical team will remain by their side through their journey. Discussed the pros/cons of accepting help when especially weakened and distressed by pain-which would also help provide relief/decrease caregiver burden/strain. Daughter is familiar with the role of hospice from our recent discussions with regards to her father. She and patient are in agreement that this philosophy of hospice would be in line with what patient wants for herself i.e. a focus that is on comfort and quality of life. For now, patient very reluctantly agrees to try the retirement with rehab and physical therapy to see how much stronger she can get. Her ultimate goal and priority is to be able to return home if at all possible. She very much feels that her choices are being stripped away from her at this point in her life. She also remains concerned with being in the same retirement as her , alluding rather vaguely to concerns of how "you know how his demands will be, wanting to be in the same bed with me all the time." (5) Palliative care by specialist: Met with pt/family. Provided overview of Palliative Medicine, a subspecialty that provides specialized medical care for people living with a serious illness by offering a focus on quality of life. Palliative Medicine is often conflated with hospice: I advised patient/family that Palliative and hospice can be partners but we are not the same. It is important to understand the difference so that we may be informed, and not afraid. Palliative Medicine works to improve QOL through reduction of symptom burden/more control over their illness, for both the patient and family. Palliative medicine clinicians are board certified, specially-trained and another member of the patient's medical care team. We often provide an extra layer of support because our care is based on the needs of the patient, not the prognosis; as such, it's appropriate at any age/advancing stage of a serious illness and can be provided along with curative treatment. Palliative Medicine clinicians are also trained in advanced com munication methodologies, to facilitate complex discussions about advanced illness planning, which are needed to help assure that the treatment choices match the patient's goals, aka delivering Goal Concordant care. Finally, we discussed that hospice is a visiting nurse service that focuses on care delivered at the very end of life for patients with terminal illness, with life expectancy less than 6 month. 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 Patient agrees to a trial of rehab with the hopeful intention of returning home with the addition of hospice if her strength can be improved. * Please convey to the retirement she does not want to be proximal to or near her . She does not want to have visits with him and feels that ultimately this would only add to his distress as well as hers. * Ultimate goal is for comfort. If rehab does not help or she declines well attempting to get stronger on rehab, then moved to a comfort plan of care. She does not wish to return to the hospital. * She can follow up with me in outpt pall med clinic for ongoing symptom mgt needs. * Comfort Care Discharge Summary & Plan of Care For Custodial/SNF/[facility] Comfort plan of care agreed upon by: Patient, Valeri Davis and her daughter, Sabine mujica Discussed with Patient/Family on: 09/22/2023 Comfort plan of care parameters: 1. Patient/Family want hospice added to their care. 2. Trial of rehab/PT/OT, with the goal of trying to work towards being strong enough to return home with the addition of home hospice and combined family support 3. If she worsens, transition to strictly End of Life care only 4. NO escalation of care: do not increase oxygen, escalate therapies, etc. The focus is on comfort through end of life, assure this is accomplished with aggressive symptom management (i.e. relief of dyspnea, pain, etc.) 5. NO return to hospital 6. NO labs, imaging, surgery 7. Oral intake as desired for comfort and pleasure: NO dietary restriction 8. If difficulty urinating/commode/bedpan, ok to place Gann catheter for comfort/hygiene/skin protection AND/OR Continue Gann catheter for comfort/hygiene/skin protection 9. NO: calorie counts, artificial nutrition, feeding tubes or IV fluids Medications to continue are noted on discharge summary. Provider to contact if any questions about comfort plan of care: Hospice Baseball Player or designee Thank you for allowing us to participate in the ongoing care of this patient. Please don't hesitate to call or page with any additional concerns. Dr. Lynsey Penn DNP Director, Palliative Care History of Present Illness Reason for Consultation: acute/chronic respiratory failure, myelodysplasia Attending Physician: Torie Martinez MD History of Present Illness Valeri is an 83yo female admitted 09/07/23 with back and abd pain along with rectal bleeding. She was also seen at PCP office 2 days prior to admission, 09/05/23, where she refused further workup. She reported pain with BMs, +tenesmus At baseline has chronic hypox resp failure from underlying COPD/asthma She is on apixaban for atrial fibrillation On admission, her WBC count was 1.58, hemoglobin was 7.0 g/dL, hematocrit was 22.7%, platelet count was 72,000/mcL. She was microcytic and hypochromic. Her creatinine is elevated however at baseline is between 1.6 and 2.2 g/dL. Iron indicis were checked, revealed serum iron of 51, TIBC of 221, transferrin saturation of 23%. BNP was elevated. Folic acid on admission was 14.97, vitamin B12 was borderline low at 217. 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 - Peripheral smear reviewed by pathology Allergies Allergy/AdvReac Type Severity Reaction Status Date / Time sacubitril [From Entresto] AdvReac Severe hyperkalemi Verified 09/07/23 15:12 a valsartan [From Entresto] AdvReac Severe hyperkalemi Verified 09/07/23 15:12 a Home Medications Medication Instructions Recorded Confirmed Type Oxygen Home E0424 #1 ea 03/05/19 09/05/23 History lancets 30 gauge (OneTouch Delica #25 ea 03/05/19 09/05/23 History Lancets) CPAP Machine #1 ea 11/20/19 09/05/23 Rx blood sugar diagnostic (OneTouch #100 ea 05/06/22 09/05/23 Rx Verio test strips) blood-glucose meter (OneTouch #1 ea 05/06/22 09/05/23 Rx Verio Meter) insulin glargine 100 unit/mL (3 10 unit (0.1 mL) subcut QPM 90 08/11/22 09/07/23 Rx mL) subcutaneous pen (Lantus days #9 mL Solostar U-100 Insulin) apixaban 2.5 mg tablet (Eliquis) 2.5 mg PO BID #60 tabs 11/24/22 09/07/23 Rx levothyroxine 88 mcg tablet 88 mcg PO 6XWK #90 tabs 11/24/22 09/07/23 Rx pramipexole 0.5 mg tablet 0.5 mg PO .COMPLEX 30 days #270 01/12/23 09/07/23 Rx tabs ipratropium 0.5 mg-albuterol 3 mg 3 ml inhalation Q4H PRN wheezing 03/18/23 09/07/23 Rx (2.5 mg base)/3 mL nebulization #540 mL soln gabapentin 300 mg capsule 300 mg PO HS #180 caps 04/22/23 09/07/23 Rx furosemide 40 mg tablet (Lasix) 40 mg PO DAILY #135 tabs 05/06/23 09/07/23 Rx lisinopril 5 mg tablet (Zestril) 5 mg PO DAILY #90 tabs 05/09/23 09/07/23 Rx acetaminophen 500 mg oral powder 500 mg PO Q6H PRN PAIN/FEVER 06/20/23 09/07/23 History packet (Tylenol Extra Strength) metoprolol succinate 50 mg 50 mg PO DAILY #90 tabs 06/20/23 09/07/23 Rx tablet,extended release 24 hr lorazepam 1 mg tablet 1 mg PO HS PRN Sleep #30 tabs 06/28/23 09/07/23 Rx pen needle, diabetic 31 gauge x #100 ea 07/06/23 09/05/23 Rx 5/16" (Lite Touch Insulin Pen [place]) albuterol sulfate 90 mcg/actuation 2 puff inhalation Q6H PRN 08/04/23 09/07/23 Rx aerosol inhaler shortness of breath or wheezing #8.5 grams umeclidinium 62.5 mcg-vilanterol 1 inh inhalation DAILY #60 ea 08/22/23 09/07/23 Rx 25 mcg/actuation powdr for inhalation (Anoro Ellipta) metoprolol succinate 200 mg 100 mg (1/2 x 200 mg) PO DAILY #30 09/13/23 Rx tablet,extended release 24 hr tabs Patient History Medical History (Updated 09/22/23 @ 13:05 by Lynsey Penn DNP) Obesity hypoventilation syndrome Depression due to physical illness Social isolation Palliative care by specialist Advanced care planning/counseling discussion Weakness generalized Dyspnea and respiratory abnormalities Morbid obesity with BMI of 40.0-44.9, adult Gout Mild cognitive impairment Atrial fibrillation Chronic systolic CHF (congestive heart failure) Cardiomyopathy Anemia Anxiety Chronic kidney disease, stage 3 (moderate) Chronic obstructive pulmonary disease Depression Diabetic peripheral neuropathy Diabetic retinopathy Dyslipidemia Generalized osteoarthritis of multiple sites Hypertension Hypothyroidism Obesity hypoventilation syndrome Obstructive sleep apnea of adult Osteoporosis Pulmonary hypertension Restless legs syndrome Restrictive lung disease Secondary hyperparathyroidism Tinnitus Type 2 diabetes mellitus Vitamin B12 deficiency Vitamin D deficiency Surgical History H/O cervical spine surgery Late H/O hysterectomy with oophorectomy TABHSO secondary heavy bleeding. Family History Father Alzheimer disease Sister Brain tumor Mother Myocardial infarction AAA (abdominal aortic aneurysm) Brother Myocardial infarction T2DM (type 2 diabetes mellitus) Denies family history of Ovarian cancer Prostate cancer Breast cancer Colorectal cancer Social History Smoking Status: Former smoker Tobacco Type: Cigarettes Age Started Using Tobacco: 14; Age Quit Using Tobacco: 59; packs per day: 0.5; Cigarettes Per Day: 10; Second Hand Exposure: Yes (her family smokes around her ); Do You Dip or Chew Tobacco: No; Hx Alcohol Use: No Hx Substance Use: No Preferred Language: Amharic Communication Ability: Effective Visual Impairment: No Limitations Hearing Ability: Normal Scalehouse Attendant Required: No Beliefs That Will Affect Care: None marital status: Current Living Situation: Alone current occupational status: retired current occupation: she worked in housekeeping at the hospital Feels Safe at Home: Yes Childhood Exposure to Second-Hand Smoke: Yes Diet: regular Dental Care, Regularly: No Physical Activity Frequency: Does not Exercise Seatbelt Use: never Sunscreen Use: No Assistive Devices: CPAP, Oxygen - Continuous and Walker Review of Systems Review of Systems: All systems reviewed & are unremarkable except as noted in Subjective Physical Exam Physical Exam: Elderly female, sitting out of bed to chair at bedside. She is awake, alert and oriented x 3. Mood is anxious. Bitemporal wasting noted. Generalized weakness. Pupils equal round and reactive to light. Extraocular movements are intact. Neck is supple. There is no stridor. Dentition is fair. Mucosal membranes are moist. There is no obvious ulcers or lesions in the mouth or tongue. Respiratory effort normal. Mild conversational dyspnea noted. Intermittent but dry cough. Lungs are diminished overall. There is a prolonged expiratory phase noted. There is no wheezing noted. Heart tones S1-S2. No JVD. Abdomen obese, + pannus, + bowel sounds. Nontender to palpation. Generalized weakness throughout. Will move all extremities weakly. Strength is intact and equal bilaterally but noticed to be quite weak. Skin is pale but warm to touch. Lower extremities with venous insufficiency changes. Results & Data Vital Signs (Past 12 Hours) Vital Signs Temp Pulse Pulse Resp BP BP Pulse Ox 09/22/23 08:05 70 09/22/23 07:21 36.8 C 68 18 101/67 97 09/22/23 03:42 36.5 C 80 18 100/62 98 09/21/23 23:57 70 09/21/23 22:55 36.7 C 75 20 116/70 97 O2 Del Method O2 Flow Rate 09/22/23 08:05 09/22/23 07:21 Nasal Cannula 09/22/23 03:42 Nasal Cannula 3 09/21/23 23:57 09/21/23 22:55 Nasal Cannula 3 Laboratory Results See HPI Diagnostic Findings See HPI PG Care Time/CCT Total # of Minutes Spent Total Time Spent with Patient: Total time spent is greater than 50% in coordination of care (as documented) at patient's floor/unit and/or counseling patient: I spent 130 minutes overall addressing this case: 20 min in medical data review/discussion with referring provider(s) and/or preparation for the visit 20 min in direct interaction with the patient/exam 60 min in Advance Care Planning/Goals of Care discussions as detailed above in note (must be >16min) 15 min in subsequent review and synthesis of assessment and plan 15 min communicating with other providers regarding the patient's case: Nursing, primary team. Advanced Care Planning 55835 Advanced Care Planning 30 Min [id number] Advanced Care Planning Additional 30 [place] [address] IN/OBS CONSULT LVL 5,80M Patient Type New History Comprehensive Exam Comprehensive Medical Decision Making High Complexity Diagnoses Dyspnea and respiratory abnormalities R06.00; R06.89 Weakness generalized R53.1 Social isolation Z60.4 Advanced care planning/counseling discussion Z71.89 Palliative care by specialist Z51.5 Obesity hypoventilation syndrome E66.2 Depression due to physical illness F06.31 Acute respiratory failure with hypoxia and hypercapnia J96.01; J96.02 Heart failure with ejection fraction improved from reduced range to preserved range I50.32 Mitral regurgitation I34.0 Additional Codes Advanced Care Planning - 48197 Advanced Care Planning 30 Min: 45693 Advanced Care Planning 30 Min ([id number]) Advanced Care Planning - 43982 Advanced Care Planning Additional 30 Min: 87123 Advanced Care Planning Additional 30 Min ([id number])
--- NOTE | 2023-09-22 16:12 | Hospitalist Progress Note ---
Date of Service September 22, 2023 Assessment & Plan (1) Acute on chronic respiratory failure with hypoxia and hypercapnia: Plan: acute component - decompensated CHF +/- ?pneumonia +/- COPD exacerbation -- all made worse by very inconsistent/limited use of CPAP or BIPAP Bipap settings adjusted 09/19 by RT s/p 5 days of rocephin which ended on 09/11, followed by 2 days of levaquin -- all abx have been stopped Treated for possible acute exacerbation of COPD: Had 4 days of prednisone 40mg daily, then 4 days of 30mg of prednisone; 3 days of 20mg, decreased to 10 mg for 09/23. Not wheezing currently Diuresed with IV lasix for several days as well. Developed significant contraction alkalosis - resumed oral lasix, vbg today , no improvement chronic components - COPD, LEDA/OHS. Typically on 3L NC O2 continuously and nighttime CPAP - encouraged to use Bipap or at least CPAP nightly but this has been a struggle ALL admission Considered Bipap or AVAPS for discharge, however, has not tolerated/been compliant with it thus far and remains hypercarbic Valeri has failed to improve with respect to her respiratory status over the past two weeks despite treatment for pneumonia, diuresis, trial of steroids, trial of bipap with which she cannot tolerate/cooperate. Home bipap/avaps not a viable option if she cannot/will not use it. We also reviewed the bone marrow biopsy finding of MDS, which is not an immediate threat but carries a prognosis of about a year and she is medically too ill to tolerate outpatient chemotherapy for this. Consulted palliative care Dr. Penn who met with Valeri and her daughter. Valeri prefers to be at home but currently too frail and weak to be at home alone without significantly increased amount of caregiver support which will take time to arrange. Prefers discharge to SNF for trial of rehab with palliative focus of care and eventual goal of return home with increased family/caregiver/hospice support, if she worsens however, transition to end of life care only, no escalation of care / return to hospital (excepting for uncontrollable symptoms) - I filled out POLST form with her daughter. (2) Metabolic encephalopathy: Plan: 2nd to worsening hypercapnia 2nd to benzo withdrawal did improve s/p IV ativan 09/19 and resumption of 0.5 mg po HS remains severely hypercarbic (100 on vbg) despite over a week of some amount of HS Bipap mentation reasonably good last two days with some baseline confusion/forgetfulness per her family (3) Benzodiazepine withdrawal with delirium: Plan: although MAR from admission shows ativan 1mg HS "PRN" family confirmed she uses this nearly every night has been on ativan for some time will continue ativan 0.5mg orally at bedtime scheduled (was on 1mg at home, but in light of elevated CO2 levels, reduced dose) -no further evidence of withdrawal at this time (4) Pancytopenia: Plan: Hematology/oncology Dr. Archer consulted this admission Reviewed bone marrow biopsy results with Dr. Archer 09/20 - consistent with MDS with complex cytogenetics. Manual blast count fortunately has been low at 2% Copper level wnl. Other w/u - B12 217 (notably < 400 in April), folate 14, ferritin, iron studies reviewed and ok, retic count 1.72, peripheral smear with rare blasts. TSH wnl. Cont daily vit B12 1000mcg. She is also s/p Venofer 200 mg daily x 3 doses as well as 1 unit PRBCs on 09/10. Per my discussion with Dr. Archer overall prognosis from this MDS is about a year, treatment would be low intensity as outpatient - 5d a week infusion - currently option is supportive care / transfusion as needed because she is too medically ill to tolerate targeted MDS treatment - updated her daughter with these results 09/21 (5) Proctitis: Plan: Seen on admission CT abdomen and pelvis, unclear significance. Had loose stools this admission and C. diff and stool biofire negative. Completed 5d ceftriaxone and metronidazole because neutropenic. Parts Analyst consulted; proctitis felt unlikely. 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 CT of t-spine and l-spine -- NO compression fractures, severe stenosis, etc. But OA/DJD of spine present. K-pad ordered. Lidoderm patches ordered. Prednisone for COPD - this should help back as well. gabapentin 100mg HS. avoid narcotics due to hypercapnia. (7) Chronic systolic CHF (congestive heart failure): Plan: EF was 35-40% several years ago. Most recent echos show preserved EF. Thus, systolic CHF has resolved. Her CHF is on the basis of diastolic dysfunction. Treated for acute on chronic HfpEF this admission with IV lasix and dyspnea improved has significant contraction alkalosis - holding active diuresis and continue oral lasix per NENO Meyers - CHF clinic - dry weight is about 200 pounds. weight is ~210 pounds now. bp on low side this am, will not increase lasix - continue oral lasix (8) Pericardial effusion: Plan: Known diagnosis. Repeat TTE this admission unchanged, only small pericardial effusion without tamponade physiology. (9) Pleural effusion: Plan: Small - no Rx needed other than diuresis (10) Permanent atrial fibrillation: Plan: stopped apixaban due to anemia and thrombocytopenia with recent rectal bleeding Latter resolved, and platelets remain in the 60s-70s Continue metoprolol for rate control Will not resume apixaban because of bleeding issues and palliative focus of care (11) Obstructive sleep apnea of adult: Plan: follows with [facility] last visit was 03/2023 with Ashkan LAZCANO continue CPAP (12) Type 2 diabetes mellitus: Plan: held glargine for hypoglycemia 09/20 cont novolog ac/hs BG labile but acceptable 09/22 (13) Restless legs syndrome: Plan: Continue pramipexole (14) Chronic respiratory failure with hypoxia: Plan: Baseline 2-3 LPM O2 continuously (15) Acute blood loss anemia: Plan: caused by rectal bleeding, also with bone marrow failure H/H stable last few checks CBC stable 09/22 - pancytopenia unchanged (16) Abdominal pain: Plan: improved with once daily PPI thus, gastritis and/or GERD likely the cause CT a/p with gallstones but no symptoms to suggest such (no pain with eating, no postprandial pain, etc) (17) Pulmonary hypertension: Plan: 2nd COPD, OHS/LEDA, etc cont NC o2 while awake (18) Pneumonia: Plan: treated for such with rocephin x 5 days earlier in the stay + 2 days of levaquin resolved clinically off all abx Plan typically lives with her who was just discharged from hospital to [facility]. he was just dx with lung cancer. he has dementia as well. PT/OT - SNF advised DVT proph - heparin 5000 TID daughter updated by phone 09/19, at bedside 09/21 & 09/22 Admission and Anticipated Discharge Date Admission Date: September 07, 2023 Subjective breathing is stable, thinks better than last week, continues with tremor/asterixis. RN reports used Bipap maybe only 1-2h last night and that she was confused overnight. Physical Exam 2 Physical Exam: PHYSICAL EXAMINATION Last 24h vital signs reviewed, see documentation in flowsheet General: sitting in chair, daughter at bedside HEENT: Normocephalic, atraumatic, pupils round and equal, sclerae anicteric, no conjunctival injection, moist mucus membranes Lungs: breathing nonlabored Heart: Regular rate and rhythm, no murmurs. No JVD Abdomen: Soft, nontender, nondistended. Extremities: Warm, dry, well-perfused. 1+ extremity edema unchanged. Neuro: awake alert oriented to basic situation, remains confused/forgetful, +asterixis, face symmetric, moves 4 extremities well. unchanged Psych: Normal affect and behavior Results & Data Results & Data Vital Signs (Past 12 Hours) Vital Signs Temp Pulse Pulse Resp BP Pulse Ox O2 Del Method 09/22/23 15:12 37.0 C 84 20 126/69 95 Nasal Cannula 09/22/23 12:40 97/48 L 09/22/23 11:32 36.5 C 93 H 20 95/57 L 97 Nasal Cannula 09/22/23 09:00 Nasal Cannula 09/22/23 08:05 70 09/22/23 07:21 36.8 C 68 18 101/67 97 Nasal Cannula O2 Flow Rate 09/22/23 15:12 09/22/23 12:40 09/22/23 11:32 09/22/23 09:00 3 09/22/23 08:05 09/22/23 07:21 Laboratory Results 09/22/23 08:24 09/22/23 08:24 PG Care Time/CCT Total # of Minutes Spent Total Time Spent with Patient: I personally spent: 55 minutes today on clinical care activities including: reviewing chart notes and vital signs reviewing labs discussion with [employer] infrastructure consultant discussion with transitions rn care coordinator examining and counseling the patient counseling the patient's family, POLST form writing orders documentation Coding Level of Care Code 80247 SUB INP/OBS CARE 3/50MIN Diagnoses Acute on chronic respiratory failure with hypoxia and hypercapnia J96.21; J96.22 Metabolic encephalopathy G93.41 Benzodiazepine withdrawal with delirium F13.931 Pancytopenia D61.818 Proctitis K62.89 Back pain of thoracolumbar region M54.50; M54.6 Chronic systolic CHF (congestive heart failure) I50.22 Pericardial effusion I31.39 Pleural effusion J90 Permanent atrial fibrillation I48.21 Obstructive sleep apnea of adult G47.33 Type 2 diabetes mellitus E11.9 Restless legs syndrome G25.81 Chronic respiratory failure with hypoxia J96.11 Acute blood loss anemia D62 Abdominal pain R10.9 Pulmonary hypertension I27.20 Pneumonia J18.9
[2023-09-23] MEDS: predniSONE 10 MG TABLET PO SCH (08:28)
--- NOTE | 2023-09-23 16:51 | Hospitalist Progress Note ---
Date of Service September 23, 2023 Assessment & Plan (1) Acute on chronic respiratory failure with hypoxia and hypercapnia: Plan: acute component - decompensated CHF +/- ?pneumonia +/- COPD exacerbation -- all made worse by very inconsistent/limited use of CPAP or BIPAP Bipap settings adjusted 09/19 by RT s/p 5 days of rocephin which ended on 09/11, followed by 2 days of levaquin -- all abx have been stopped Treated for possible acute exacerbation of COPD: Had 4 days of prednisone 40mg daily, then 4 days of 30mg of prednisone; 3 days of 20mg, decreased to 10 mg for 09/23. Not wheezing currently Diuresed with IV lasix for several days as well. Developed significant contraction alkalosis - resumed oral lasix, vbg today , no improvement chronic components - COPD, LEDA/OHS. Typically on 3L NC O2 continuously and nighttime CPAP - encouraged to use Bipap or at least CPAP nightly but this has been a struggle ALL admission Considered Bipap or AVAPS for discharge, however, has not tolerated/been compliant with it thus far and remains hypercarbic -09/23 added acetazolamide (and decreased lasix) for trial to see if this will improve her breathing. discussed this with her daughters - risk of electrolyte imbalance or being ineffective. poor candidate for progesterone because of VTE risk -AM BMP on Tuesday Valeri has failed to improve with respect to her respiratory status over the past two weeks despite treatment for pneumonia, diuresis, trial of steroids, trial of bipap with which she cannot tolerate/cooperate. Home bipap/avaps not a viable option if she cannot/will not use it. We also reviewed the bone marrow biopsy finding of MDS, which is not an immediate threat but carries a prognosis of about a year and she is medically too ill to tolerate outpatient chemotherapy for this. Consulted palliative care Dr. Penn who met with Valeri and her daughter. Valeri prefers to be at home but currently too frail and weak to be at home alone without significantly increased amount of caregiver support which will take time to arrange. Prefers discharge to SNF for trial of rehab with palliative focus of care and eventual goal of return home with increased family/caregiver/hospice support, if she worsens however, transition to end of life care only, no escalation of care / return to hospital (excepting for uncontrollable symptoms) - I filled out POLST form with her daughter. (2) Metabolic encephalopathy: Plan: 2nd to worsening hypercapnia 2nd to benzo withdrawal did improve s/p IV ativan 09/19 and resumption of 0.5 mg po HS remains severely hypercarbic (100 on vbg) despite over a week of some amount of HS Bipap mentation reasonably good last few days with some baseline confusion/forgetfulness per her family no asterixis today (3) Benzodiazepine withdrawal with delirium: Plan: although MAR from admission shows ativan 1mg HS "PRN" family confirmed she uses this nearly every night has been on ativan for some time will continue ativan 0.5mg orally at bedtime scheduled (was on 1mg at home, but in light of elevated CO2 levels, reduced dose) -no further evidence of withdrawal at this time (4) Pancytopenia: Plan: Hematology/oncology Dr. Archer consulted this admission Reviewed bone marrow biopsy results with Dr. Archer 09/20 - consistent with MDS with complex cytogenetics. Manual blast count fortunately has been low at 2% Copper level wnl. Other w/u - B12 217 (notably < 400 in April), folate 14, ferritin, iron studies reviewed and ok, retic count 1.72, peripheral smear with rare blasts. TSH wnl. Cont daily vit B12 1000mcg. She is also s/p Venofer 200 mg daily x 3 doses as well as 1 unit PRBCs on 09/10. Per my discussion with Dr. Archer overall prognosis from this MDS is about a year, treatment would be low intensity as outpatient - 5d a week infusion - currently option is supportive care / transfusion as needed because she is too medically ill to tolerate targeted MDS treatment - updated her daughter with these results 09/21 (5) Proctitis: Plan: Seen on admission CT abdomen and pelvis, unclear significance. Had loose stools this admission and C. diff and stool biofire negative. Completed 5d ceftriaxone and metronidazole because neutropenic. [employer] Fre[employer]er consulted; proctitis felt unlikely. 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 CT of t-spine and l-spine -- NO compression fractures, severe stenosis, etc. But OA/DJD of spine present. K-pad ordered. Lidoderm patches ordered. gabapentin 100mg HS. avoid narcotics due to hypercapnia. (7) Chronic systolic CHF (congestive heart failure): Plan: EF was 35-40% several years ago. Most recent echos show preserved EF. Thus, systolic CHF has resolved. Her CHF is on the basis of diastolic dysfunction. Treated for acute on chronic HfpEF this admission with IV lasix and dyspnea im proved has significant contraction alkalosis - holding active diuresis and continue oral lasix per NENO Meyers - CHF clinic - dry weight is about 200 pounds. weight is ~205 pounds now. - continue oral lasix, dose reduced to 20 mg qAM with addition of acetazolamide 250 mg bid (8) Pericardial effusion: Plan: Known diagnosis. Repeat TTE this admission unchanged, only small pericardial effusion without tamponade physiology. (9) Pleural effusion: Plan: Small - no Rx needed other than diuresis (10) Permanent atrial fibrillation: Plan: stopped apixaban due to anemia and thrombocytopenia with recent rectal bleeding Latter resolved, and platelets remain in the 60s-70s Continue metoprolol for rate control Will not resume apixaban because of bleeding issues and palliative focus of care (11) Obstructive sleep apnea of adult: Plan: follows with [facility] Pul last visit was 03/2023 with Ashkan LAZCANO continue CPAP (12) Type 2 diabetes mellitus: Plan: held glargine for hypoglycemia 09/20 cont novolog ac/hs BG labile but acceptable 09/23 (13) Restless legs syndrome: Plan: Continue pramipexole (14) Chronic respiratory failure with hypoxia: Plan: Baseline 2-3 LPM O2 continuously (15) Acute blood loss anemia: Plan: caused by rectal bleeding, also with bone marrow failure H/H stable last few checks CBC stable 09/22 - pancytopenia unchanged (16) Abdominal pain: Plan: improved with once daily PPI thus, gastritis and/or GERD likely the cause CT a/p with gallstones but no symptoms to suggest such (no pain with eating, no postprandial pain, etc) (17) Pulmonary hypertension: Plan: 2nd COPD, OHS/LEDA, etc cont NC o2 while awake (18) Pneumonia: Plan: treated for such with rocephin x 5 days earlier in the stay + 2 days of levaquin resolved clinically off all abx Plan typically lives with her who was just discharged from hospital to [facility]. he was just dx with lung cancer. he has dementia as well. PT/OT - SNF advised DVT proph - heparin 5000 TID daughter updated by phone 09/19, at bedside 09/21, 09/22, 09/23 both daughters Admission and Anticipated Discharge Date Admission Date: September 07, 2023 Subjective having a good day, shortness of breath is about as good as it has been and not tremulous today. Leg edema improved compared to last week. did not use CPAP overnight Physical Exam Physical Exam: PHYSICAL EXAMINATION Last 24h vital signs reviewed, see documentation in flowsheet General: sitting in chair, daughters at bedside, looks good today HEENT: Normocephalic, atraumatic, pupils round and equal, sclerae anicteric, no conjunctival injection, moist mucus membranes Lungs: breathing nonlabored, diminished in bases, no wheezing, no crackles, poor air mvt Heart: Regular rate and rhythm, no murmurs. No JVD Abdomen: Soft, nontender, nondistended. Extremities: Warm, dry, well-perfused. 1+ extremity edema unchanged. Neuro: awake alert oriented to basic situation, remains confused/forgetful, No asterixis, face symmetric, moves 4 extremities well. Psych: Normal affect and behavior Results & Data Results & Data Vital Signs (Past 12 Hours) Vital Signs Temp Pulse Pulse Resp BP Pulse Ox O2 Del Method 09/23/23 16:00 36.8 C 88 18 144/77 H 96 Nasal Cannula 09/23/23 11:10 36.7 C 70 18 124/60 98 Nasal Cannula 09/23/23 08:40 Nasal Cannula 09/23/23 08:04 73 09/23/23 07:22 36.6 C 74 16 139/81 95 Nasal Cannula O2 Flow Rate 09/23/23 16:00 2 09/23/23 11:10 2 09/23/23 08:40 3 09/23/23 08:04 09/23/23 07:22 2 PG Care Time/CCT Total # of Minutes Spent Total Time Spent with Patient: Total time spent is greater than 50% in coordination of care (as documented) at patient's floor/unit and/or counseling patient: Coding Level of Care Code 76591 SUB INP/OBS CARE 2/35MIN Diagnoses Acute on chronic respiratory failure with hypoxia and hypercapnia J96.21; J96.22 Metabolic encephalopathy G93.41 Benzodiazepine withdrawal with delirium F13.931 Pancytopenia D61.818 Proctitis K62.89 Back pain of thoracolumbar region M54.50; M54.6 Chronic systolic CHF (congestive heart failure) I50.22 Pericardial effusion I31.39 Pleural effusion J90 Permanent atrial fibrillation I48.21 Obstructive sleep apnea of adult G47.33 Type 2 diabetes mellitus E11.9 Restless legs syndrome G25.81 Chronic respiratory failure with hypoxia J96.11 Acute blood loss anemia D62 Abdominal pain R10.9 Pulmonary hypertension I27.20 Pneumonia J18.9
[2023-09-23] MEDS: acetaZOLAMIDE 250 MG TAB PO SCH (17:30)
[2023-09-23 21:41] LABS: Hematocrit (blood only) 24.8 % (37.0-47.0); Hemoglobin 7.8 g/dl (12.0-16.0); Mean Corpuscular Hemoglobin 34.8 pg (25.0-34.0); Mean Corpuscular Hgb Conc 31.5 g/dL (32.0-36.0); Mean Corpuscular Volume 110.7 fL (80.0-100.0); Mean Platelet Volume 12.7 fL (9.4-12.4); Nucleated RBC # (auto) 0.07 K/uL (0.00-0.12); Nucleated RBC % (auto) 2.7 %; Platelet Count 57 K/uL (130-400); RDW Coefficient of Variation 18.5 % (11.5-14.5); RDW Standard Deviation 74.4 fL (36.4-46.3); Red Blood Count 2.24 M/uL (4.20-5.40)
[2023-09-23 22:11] LABS: Partial Thromboplastin Time 28 Seconds (21-31); Prothrombin Time 11.3 Seconds (9.0-12.0)
[2023-09-24 07:51] LABS: Hematocrit (blood only) 27.9 % (37.0-47.0); Hemoglobin 8.5 g/dl (12.0-16.0); Mean Corpuscular Hemoglobin 34.6 pg (25.0-34.0); Mean Corpuscular Hgb Conc 30.5 g/dL (32.0-36.0); Mean Corpuscular Volume 113.4 fL (80.0-100.0); Mean Platelet Volume 11.3 fL (9.4-12.4); Nucleated RBC # (auto) 0.06 K/uL (0.00-0.12); Nucleated RBC % (auto) 1.8 %; Platelet Count 57 K/uL (130-400); RDW Coefficient of Variation 18.6 % (11.5-14.5); RDW Standard Deviation 77.6 fL (36.4-46.3); Red Blood Count 2.46 M/uL (4.20-5.40); White Blood Count 3.28 K/ul (4.8-10.8)
[2023-09-24] MEDS: FUROSEMIDE 20 MG TAB PO SCH (09:13)
--- NOTE | 2023-09-24 15:41 | Hospitalist Progress Note ---
Date of Service September 24, 2023 Assessment & Plan (1) Acute on chronic respiratory failure with hypoxia and hypercapnia: Plan: acute component - decompensated CHF +/- ?pneumonia +/- COPD exacerbation -- all made worse by very inconsistent/limited use of CPAP or BIPAP Bipap settings adjusted 09/19 by RT s/p 5 days of rocephin which ended on 09/11, followed by 2 days of levaquin -- all abx have been stopped Treated for possible acute exacerbation of COPD: Had 4 days of prednisone 40mg daily, then 4 days of 30mg of prednisone; 3 days of 20mg, decreased to 10 mg for 09/23. Not wheezing currently Diuresed with IV lasix for several days as well. Developed significant contraction alkalosis - resumed oral lasix chronic components - COPD, LEDA/OHS. Typically on 3L NC O2 continuously and nighttime CPAP - encouraged to use Bipap or at least CPAP nightly but this has been a struggle ALL admission Considered Bipap or AVAPS for discharge, however, has not tolerated/been compliant with it thus far and remains hypercarbic -09/23 added acetazolamide (and decreased lasix) for trial to see if this will improve her breathing. discussed this with her daughters - risk of electrolyte imbalance or being ineffective. poor candidate for progesterone because of VTE risk -09/24 doing poorly, encephalopathic, presume hypercarbic, on bipap this AM. improved by afternoon and alert for second visit after wearing bipap throughout this morning Valeri has failed to improve with respect to her respiratory status over the past two weeks despite treatment for pneumonia, diuresis, trial of steroids, trial of bipap with which she cannot tolerate/cooperate. Home bipap/avaps not a viable option if she cannot/will not use it. We also reviewed the bone marrow biopsy finding of MDS, which is not an immediate threat but carries a prognosis of about a year and she is medically too ill to tolerate outpatient chemotherapy for this. Consulted palliative care Dr. Penn who met with Valeri and her daughter. Valeri prefers to be at home but currently too frail and weak to be at home alone without significantly increased amount of caregiver support which will take time to arrange. Prefers discharge to SNF for trial of rehab with palliative focus of care and eventual goal of return home with increased family/caregiver/hospice support, if she worsens however, transition to end of life care only, no escalation of care / return to hospital (excepting for uncontrollable symptoms) - I filled out POLST form with her daughter. (2) Metabolic encephalopathy: Plan: 2nd to worsening hypercapnia 2nd to benzo withdrawal did improve s/p IV ativan 09/19 and resumption of 0.5 mg po HS remains severely hypercarbic (100 on vbg) despite 2 weeks of some amount of HS Bipap mentation reasonably good last few days with some baseline confusion/forgetfulness per her family, no asterixis 09/23 much worse 09/24 see above, improved by afternoon and alert for second visit after wearing bipap throughout this morning (3) Benzodiazepine withdrawal with delirium: Plan: although MAR from admission shows ativan 1mg HS "PRN" family confirmed she uses this nearly every night has been on ativan for some time will continue ativan 0.5mg orally at bedtime scheduled (was on 1mg at home, but in light of elevated CO2 levels, reduced dose) -no further evidence of withdrawal at this time (4) Pancytopenia: Plan: Hematology/oncology Dr. Archer consulted this admission Reviewed bone marrow biopsy results with Dr. Archer 09/20 - consistent with MDS with complex cytogenetics. Manual blast count fortunately has been low at 2% Copper level wnl. Other w/u - B12 217 (notably < 400 in April), folate 14, ferritin, iron studies reviewed and ok, retic count 1.72, peripheral smear with rare blasts. TSH wnl. Cont daily vit B12 1000mcg. She is also s/p Venofer 200 mg daily x 3 doses as well as 1 unit PRBCs on 09/10. Per my discussion with Dr. Archer overall prognosis from this MDS is about a year, treatment would be low intensity as outpatient - 5d a week infusion - currently option is supportive care / transfusion as needed because she is too medically ill to tolerate targeted MDS treatment - updated her daughter with these results 09/21 (5) Proctitis: Plan: Seen on admission CT abdomen and pelvis, unclear significance. Had loose stools this admission and C. diff and stool biofire negative. Completed 5d ceftriaxone and metronidazole because neutropenic. Data [employer] consulted; proctitis felt unlikely. Had rectal bleeding overnight 09/23-09/24, seemed hemorrhoidal, SQ heparin stopped, hgb today unchanged (6) Back pain of thoracolumbar region: Plan: 2nd to DJD. CT of t-spine and l-spine -- NO compression fractures, severe stenosis, etc. But OA/DJD of spine present. K-pad ordered. Lidoderm patches ordered. gabapentin 100mg HS. avoid narcotics due to hypercapnia. (7) Chronic systolic CHF (congestive heart failure): Plan: EF was 35-40% several years ago. Most recent echos show preserved EF. Thus, systolic CHF has resolved. Her CHF is on the basis of diastolic dysfunction. Treated for acute on chronic HfpEF this admission with IV lasix and dyspnea improved has significant contraction alkalosis - holding active diuresis and continue oral lasix per [facility]ers - CHF clinic - dry weight is about 200 pounds. weight is ~205 pounds now. - continue oral lasix, dose reduced to 20 mg qAM with addition of acetazolamide 250 mg bid (8) Pericardial effusion: Plan: Known diagnosis. Repeat TTE this admission unchanged, only small pericardial effusion without tamponade physiology. (9) Pleural effusion: Plan: Small - no Rx needed other than diuresis (10) Permanent atrial fibrillation: Plan: stopped apixaban due to anemia and thrombocytopenia with recent rectal bleeding Latter resolved, and platelets remain in the 60s-70s Continue metoprolol for rate control Will not resume apixaban because of bleeding issues and palliative focus of care (11) Obstructive sleep apnea of adult: Plan: [place] [facility] [place] was 03/2023 with Ashkan LAZCANO continue CPAP/Bipap (12) Type 2 diabetes mellitus: Plan: cont novolog ac/hs BG acceptable 09/24 (13) Restless legs syndrome: Plan: Continue pramipexole (14) Chronic respiratory failure with hypoxia: Plan: Baseline 2-3 LPM O2 continuously (15) Acute blood loss anemia: Plan: caused by rectal bleeding, also with bone marrow failure H/H stable last few checks CBC stable 09/24 - pancytopenia unchanged (16) Abdominal pain: Plan: improved with once daily PPI thus, gastritis and/or GERD likely the cause CT a/p with gallstones but no symptoms to suggest such (no pain with eating, no postprandial pain, etc) (17) Pulmonary hypertension: Plan: 2nd COPD, OHS/LEDA, etc cont NC o2 while awake (18) Pneumonia: Plan: treated for such with rocephin x 5 days earlier in the stay + 2 days of levaquin resolved clinically off all abx Plan typically lives with her who was just discharged from hospital to [facility]. he was just dx with lung cancer. he has dementia as well. PT/OT - SNF advised DVT proph - stopped SQ heparin because of ongoing rectal bleeding updated two of her daughters at bedside this afternoon, the third, Yaritza, out of town today. Admission and Anticipated Discharge Date Admission Date: September 07, 2023 Subjective Valeri was not doing well this morning, confused overnight more than usual, somnolent this morning and confused, currently on bipap Physical Exam Physical Exam: PHYSICAL EXAMINATION Last 24h vital signs reviewed, see documentation in flowsheet General: lethargic in bed wearing bipap HEENT: steph MMM Lungs: breathing nonlabored, diminished throughout, no wheezing Heart: Regular rate and rhythm, no murmurs. No JVD Abdomen: Soft, nontender, nondistended. Extremities: Warm, dry, well-perfused. minimal extremity edema - decreased. Neuro: lethargic but aroused to exam, confused Psych: Normal affect and behavior Results & Data Results & Data Vital Signs (Past 12 Hours) Vital Signs Temp Pulse Pulse Resp BP BP Pulse Ox 09/24/23 12:13 36.7 C 97 H 20 131/63 97 09/24/23 08:20 102 H 09/24/23 08:20 09/24/23 08:18 36.8 C 98 H 18 108/75 129/74 100 O2 Del Method O2 Flow Rate FiO2 09/24/23 12:13 Nasal Cannula 2 09/24/23 08:20 09/24/23 08:20 BiPAP 30 09/24/23 08:18 Nasal Cannula 2 PG Care Time/CCT Total # of Minutes Spent Total Time Spent with Patient: Total time spent is greater than 50% in coordination of care (as documented) at patient's floor/unit and/or counseling patient: Coding Level of Care Code 31458 SUB INP/OBS CARE 2/35MIN Diagnoses Acute on chronic respiratory failure with hypoxia and hypercapnia J96.21; J96.22 Metabolic encephalopathy G93.41 Benzodiazepine withdrawal with delirium F13.931 Pancytopenia D61.818 Proctitis K62.89 Back pain of thoracolumbar region M54.50; M54.6 Chronic systolic CHF (congestive heart failure) I50.22 Pericardial effusion I31.39 Pleural effusion J90 Permanent atrial fibrillation I48.21 Obstructive sleep apnea of adult G47.33 Type 2 diabetes mellitus E11.9 Restless legs syndrome G25.81 Chronic respiratory failure with hypoxia J96.11 Acute blood loss anemia D62 Abdominal pain R10.9 Pulmonary hypertension I27.20 Pneumonia J18.9
[2023-09-25 09:11] LABS: Calcium 8.9 mg/dl (8.6-10.3); Potassium 4.6 mmol/L (3.5-5.1)
[2023-09-25 09:16] LABS: BUN Creatinine Ratio 36.4 (10-20); Creatinine Clr Calc Pharmacy 37.5 ml/min; Est GFR (African American) 44.7 ml/min; Est GFR (Non-African American) 38.5 ml/min
--- NOTE | 2023-09-25 12:40 | Hematology/Oncology Prog Note ---
Date of Service September 25, 2023 Assessment & Plan (1) MDS (myelodysplastic syndrome): Plan: I had a lengthy discussion with the patient, her 3 daughters on 09/24/2023. I discussed the diagnosis of myelodysplastic syndrome, its implications and how it will interfere with her current state. Currently she is dealing from cardiorespiratory compromise due to her other comorbidities. At this point she is unlikely to from MDS within the next few weeks to months. Her prognosis from a MDS standpoint is around 14 to 16 months. She is not transfusion dependent as of now. Given her multiple other comorbidities, would not recommend initiating MDS directed therapy there is hypomethylating agents. Would recommend supportive care with blood transfusions and platelet transfusions on an as-needed basis. Transfuse packed red blood cells for hemoglobin less than 7 g/dL and platelets less than 10,000/mcL. If a decision is made to proceed with comfort care because of her other comorbidities I will absolutely agree with that. Her overall prognosis is pre dicated upon her other medical issues rather than the MDS. Plan Hematology will continue to follow the patient make appropriate recommendations Admission and Anticipated Discharge Date Admission Date: September 07, 2023 Subjective She had an episode of respiratory failure yesterday morning as she failed to use her BiPAP. Respiratory function improved after she was placed on BiPAP. Continues to do overall poorly. Is mostly on the bed. I had a discussion with family members yesterday. Review of Systems Constitutional: as per Subjective / HPI Eyes: as per Subjective / HPI Ear, Nose, Mouth, Throat: as per Subjective / HPI Respiratory: as per Subjective / HPI Cardiovascular: as per Subjective / HPI Gastrointestinal: as per Subjective / HPI Genitourinary: as per Subjective / HPI Musculoskeletal: as per Subjective / HPI Integumentary: as per Subjective / HPI Neurologic: as per Subjective / HPI Physical Exam Constitutional: WD/WN, vitals as above Eyes: PERRL, conjunctivae normal, anicteric sclerae ENMT: external ear and nose normal, oropharynx normal Neck: trachea midline, no thyromegaly Respiratory: normal respiratory effort, lungs clear to auscultation Cardiovascular: RRR, no murmur, no edema Gastrointestinal (Abdomen): normal bowel sounds, soft, nontender, no hepatosplenomegaly Musculoskeletal: no cyanosis or clubbing, extremities motor strength 5/5 Skin: no rashes, warm and dry Neurologic: patellar DTR's 2+ bilat, sensation intact Results & Data Vital Signs (Past 12 Hours) Vital Signs Temp Pulse Pulse Resp BP Pulse Ox O2 Del Method 09/25/23 11:59 36.6 C 90 18 142/69 H 98 Nasal Cannula 09/25/23 09:00 68 09/25/23 09:00 BiPAP 09/25/23 07:30 36.9 C 88 20 134/70 97 Nasal Cannula 09/25/23 07:14 77 25 H 96 09/25/23 02:43 36.4 C L 94 H 20 113/73 95 Nasal Cannula O2 Flow Rate FiO2 09/25/23 11:59 2 09/25/23 09:00 09/25/23 09:00 30 09/25/23 07:30 2.0 09/25/23 07:14 30 09/25/23 02:43 2.0
[2023-09-25] MEDS ORDERED: MoRPHine SULFATE 10 MG/0.5 ML UDP PO PRN (17:05)
[2023-09-25] MEDS ORDERED: ACETAMINOPHEN 650 MG SUPP PR PRN (17:05)
[2023-09-25] MEDS ORDERED: ONDANSETRON INJ 2 MG/ML 2 ML VIAL IV PRN (17:05)
[2023-09-25] MEDS ORDERED: HYOSCYAMINE SULFATE 0.125 MG TAB SL PRN (17:05)
[2023-09-25] MEDS ORDERED: ATROPINE SULFATE 1% OP SOLN 5 ML BTL SL PRN (17:05)
[2023-09-25] MEDS ORDERED: ONDANSETRON 4 MG OD TAB SL PRN (17:05)
[2023-09-25] MEDS ORDERED: LORazepam 1 MG TAB PO PRN (17:05)
--- NOTE | 2023-09-25 17:34 | Hospitalist Progress Note ---
Date of Service September 25, 2023 Assessment & Plan (1) Acute on chronic respiratory failure with hypoxia and hypercapnia: Plan: 83 y/o with LEDA/OHS, COPD, CHF admitted with acute on chronic hypoxic and hypercarbic respiratory failure acute component - decompensated CHF +/- ?pneumonia +/- COPD exacerbation -- all made worse by very inconsistent/limited use of CPAP or BIPAP during this admission she was treated early on for CAP with rocephin/levaquin for 7 days, with 10 days of prednisone for possible acute exacerbation of COPD, and was diuresed with IV lasix for acute on chronic diastolic heart failure. The past week she was as medically optimized as possible with respect to the reversible issues/exacerbations above - euvolemic, with no wheezing, and no evidence of infection. Overall Valeri failed to improve with respect to her respiratory status despite the acute treatments above and over two weeks' trial of nocturnal and PRN bipap, which was very uncomfortable for her and with which she could tolerate/cooperate poorly. PCO2 emili from 60s-70s during beginning part of her admission to 90s- 100 this past week. Valeri has been consistently clear that she would not want interventions like intubation, ventilator, trach for example. but NIV has been ineffective and difficult for her to bear. Consulted palliative care Dr. Penn who met with Valeri and her daughter Yaritza on 09/22, which was one of Valeri's best days with respect to her mental and respiratory status this entire admission: "Valeri prefers to be at home but currently too frail and weak to be at home alone without significantly increased amount of caregiver support which will take time to arrange. Prefers discharge to SNF for trial of rehab with palliative focus of care and eventual goal of return home with increased family/caregiver/hospice support, if she worsens however, transition to end of life care only, no escalation of care / return to hospital (excepting for uncontrollable symptoms) - I filled out POLST form with her daughter." Friday 09/22 she also had a pretty good day. This weekend however, Valeri continued to worsen and was lethargic and poorly responsive AM of 09/24. After Bipap throughout the day she was awake but confused through the afternoon and evening, and has remained much more dyspneic, requiring bipap on and off all day 09/25 for uncontrolled dyspnea, though also quite uncomfortable and restless on bipap. Her Aleks who also has dementia was able to visit with Valeri this morning. I met with her three daughters this afternoon including Yaritza who is her POA and one of her granddaughters, her son who I have not met came in but left before I was able to come back to the bedside. Based on discussion with Valeri's family this afternoon will transition to comfort measures only at this time. -CPAP or Bipap PRN Valeri's request only, for dyspnea - Bipap has generally been very uncomfortable for her -oral or IV morphine PRN dyspnea/pain and oral or IV lorazepam PRN dyspnea -increased her HS lorazepam back to usual home dose of 1 mg -continue lasix and metoprolol while taking po for better control of heart failure symptoms, stop other medications that do no provide for comfort/symptom relief -remains DNR/DNI per her previously stated wishes (2) Metabolic encephalopathy: Plan: primarily related to worsening hypercapnia remains severely hypercarbic (100 on vbg) despite 2+ weeks trial of HS Bipap family reports memory is poor recently at baseline (3) Benzodiazepine withdrawal with delirium: Plan: although MAR from admission shows ativan 1mg HS "PRN" family confirmed she uses this nearly every night has been on ativan for some time possible benzodiazepine withdrawal - did improve s/p IV ativan dose 09/19 and resumption of 0.5 mg po HS did well this week on ativan 0.5mg orally at bedtime scheduled (was on 1mg at home, but in light of elevated CO2 levels, reduced dose) -no further evidence of withdrawal at this time (4) Pancytopenia: Plan: Hematology/oncology Dr. Archer consulted this admission Reviewed bone marrow biopsy results with Dr. Archer 09/20 - consistent with MDS with complex cytogenetics. Manual blast count fortunately has been low at 2% Copper level wnl. Other w/u - B12 217 (notably < 400 in April), folate 14, ferritin, iron studies reviewed and ok, retic count 1.72, peripheral smear with rare blasts. TSH wnl. treated with daily vit B12 1000mcg and Venofer 200 mg daily x 3 doses as well as 1 unit PRBCs on 09/10. Per my discussion with Dr. Archer overall prognosis from this MDS is about a year, treatment would be low intensity as outpatient - 5d a week infusion - currently option is supportive care / transfusion as needed because she is too medically ill to tolerate targeted MDS treatment (5) Proctitis: Plan: Seen on admission CT abdomen and pelvis, unclear significance. Had loose stools this admission and C. diff and stool biofire negative. Completed 5d ceftriaxone and metronidazole because neutropenic. Button Broacher consulted; proctitis felt unlikely. Had rectal bleeding overnight 09/23-09/24, seemed hemorrhoidal, SQ heparin stopped (6) Back pain of thoracolumbar region: Plan: 2nd to DJD. CT of t-spine and l-spine -- NO compression fractures, severe stenosis, etc. But OA/DJD of spine present. -treated with analgesics (7) Chronic systolic CHF (congestive heart failure): Plan: EF was 35-40% several years ago. Most recent echos show preserved EF. Thus, systolic CHF has resolved. Her CHF is on the basis of diastolic dysfunction. Treated for acute on chronic HfpEF this admission with IV lasix Appears euvolemic at this time, has been on oral diuretics this week. (8) Pericardial effusion: Plan: Known diagnosis. Repeat TTE this admission unchanged, only small pericardial effusion without tamponade physiology. (9) Pleural effusion: Plan: Small - no Rx needed other than diuresis (10) Permanent atrial fibrillation: Plan: stopped apixaban due to anemia and thrombocytopenia with recent rectal bleeding Continue metoprolol for rate control did not resume apixaban because of bleeding issues and palliative focus of care (11) Obstructive sleep apnea of adult: Plan: follows with [facility] last visit was 03/2023 with Ashkan LAZCANO baseline at home has home O2 and nocturnal CPAP (12) Type 2 diabetes mellitus: (13) Restless legs syndrome: Plan: Continue pramipexole (14) Chronic respiratory failure with hypoxia: Plan: Baseline 2-3 LPM O2 continuously (15) Acute blood loss anemia: Plan: caused by rectal bleeding, also with bone marrow failure transfused early in admission (16) Abdominal pain: Plan: improved with once daily PPI thus, gastritis and/or GERD likely the cause CT a/p with gallstones but no symptoms to suggest such (no pain with eating, no postprandial pain, etc) (17) Pulmonary hypertension: Plan: 2nd COPD, OHS/LEDA, etc (18) Pneumonia: Plan: treated for such with rocephin x 5 days earlier in the stay + 2 days of levaquin resolved clinically Plan typically lives with her who was just discharged from hospital to [facility]. he was just dx with lung cancer. he has dementia as well. Admission and Anticipated Discharge Date Admission Date: September 07, 2023 Subjective seen in AM was much more short of breath, more confused and had more tremor, in afternoon was sleeping on bipap and became very restless apx every 5 minutes Physical Exam 2 Physical Exam: PHYSICAL EXAMINATION Last 24h vital signs reviewed, see documentation in flowsheet General: sitting on EOB, daughter in room visiting HEENT: steph MMM Lungs: increased WOB, diminished throughout, no wheezing, no crackles Heart: Regular rate and rhythm, no murmurs. No JVD Abdomen: Soft, nontender, nondistended. Extremities: Warm, dry, well-perfused. no extremity edema. feet are cool and mottled with acrocyanosis. faint DP and PT pulses palpable megan Neuro: awake, confused/forgetful, +asterixis Psych: Normal affect and behavior Results & Data Results & Data Vital Signs (Past 12 Hours) Vital Signs Temp Pulse Pulse Resp BP Pulse Ox O2 Del Method 09/25/23 16:02 72 09/25/23 16:01 36.8 C 82 20 151/71 H 97 Nasal Cannula 09/25/23 11:59 36.6 C 90 18 142/69 H 98 Nasal Cannula 09/25/23 09:00 68 09/25/23 09:00 BiPAP 09/25/23 07:30 36.9 C 88 20 134/70 97 Nasal Cannula 09/25/23 07:14 77 25 H 96 O2 Flow Rate FiO2 09/25/23 16:02 09/25/23 16:01 2 09/25/23 11:59 2 09/25/23 09:00 09/25/23 09:00 30 09/25/23 07:30 2.0 09/25/23 07:14 30 Laboratory Results 09/24/23 06:24 09/25/23 08:38 PG Care Time/CCT Total # of Minutes Spent Total Time Spent with Patient: Total time spent is greater than 50% in coordination of care (as documented) at patient's floor/unit and/or counseling patient: Coding Level of Care Code 48211 SUB INP/OBS CARE 3/50MIN Diagnoses Acute on chronic respiratory failure with hypoxia and hypercapnia J96.21; J96.22 Metabolic encephalopathy G93.41 Benzodiazepine withdrawal with delirium F13.931 Pancytopenia D61.818 Proctitis K62.89 Back pain of thoracolumbar region M54.50; M54.6 Chronic systolic CHF (congestive heart failure) I50.22 Pericardial effusion I31.39 Pleural effusion J90 Permanent atrial fibrillation I48.21 Obstructive sleep apnea of adult G47.33 Type 2 diabetes mellitus E11.9 Restless legs syndrome G25.81 Chronic respiratory failure with hypoxia J96.11 Acute blood loss anemia D62 Abdominal pain R10.9 Pulmonary hypertension I27.20 Pneumonia J18.9
[2023-09-25] MEDS: MoRPHine SULFATE 2 MG/ML CARP IV PRN (18:37)
[2023-09-25] MEDS: LORazepam 1 MG TAB PO SCH (20:23)
[2023-09-26] MEDS: LORazepam 0.5 MG in SYRINGE 0.25 ML IV PRN (03:32)
[2023-09-26] MEDS: GLYCOPYRROLATE 0.2 MG/ML VIAL IV PRN (03:38)
[2023-09-26] MEDS: FUROSEMIDE 40 MG TAB PO SCH (08:45)
--- NOTE | 2023-09-26 16:57 | Death Pronouncement Note ---
Date of Service September 26, 2023 Pronouncement Note Admission Date Admission Date: September 07, 2023 Date and Time of Date of : 09/26/23 Time of : 10:25 Contributing Factors (1) Acute on chronic respiratory failure with hypoxia and hypercapnia: (2) Metabolic encephalopathy: (3) Benzodiazepine withdrawal with delirium: (4) Pancytopenia: (5) Proctitis: (6) Back pain of thoracolumbar region: (7) Chronic systolic CHF (congestive heart failure): (8) Pericardial effusion: (9) Pleural effusion: (10) Permanent atrial fibrillation: (11) Obstructive sleep apnea of adult: (12) Type 2 diabetes mellitus: (13) Restless legs syndrome: (14) Chronic respiratory failure with hypoxia: (15) Acute blood loss anemia: (16) Abdominal pain: (17) Pulmonary hypertension: (18) Pneumonia: Hospital Course Hospital Course: Acute on chronic hypercarbic and hypoxic respiratory failure due to LEDA/OHS, COPD, Chronic diastolic heart failure Failed to improve despite over 2 weeks trial of nocturnal and PRN noninvasive ventilation. Transitioned to comfort measures 09/25/23. Nursing staff reports she was not awake/alert through the night. Daughters at bedside reported cessation of respirations. On exam Valeri was unresponsive with prolonged absence of heart or lung sounds. Actual time of 10:25 AM. Additional Data Attending physician: Torie Martinez MD
--- NOTE | 2023-09-26 17:04 | Discharge Summary ---
Date of Service September 26, 2023 Admission HPI Per Admitting Provider Valeri Davis is an 83-year-old female who presents to the ER back and abdominal pain and rectal bleeding. Patient was seen with her daughter Yaritza at bedside. She was seen by her PCP 2 days ago for the rectal bleeding but declined any further workup. She takes apixaban for atrial fibrillation which she last took this morning (around 9am). History is somewhat difficult regarding timelines for the patient and her daughter at bedside notes she tends to underplay symptoms which have likely been going on for much longer. The patient thinks the rectal bleeding started around 5 days ago and happening intermittently. She denies any diarrhea or melena although her daughter notes she may have had a couple of episodes of diarrhea earlier this week. No nausea, vomiting or constipation. Abdominal back/abdominal pain which she thinks started yesterday but became much more severe today although also noted on her PCP note from 2 days ago. Worse on movement and with bowel movements. She feels pain on defecation. Having significant tenesmus without bowel movements. Abdominal/back pain is generalized (although noted on exam much worse on right compared to left side). No personal or family history of IBD, colon cancer. Personal history of diverticulitis. She has chronic hypoxic respiratory failure usually 3LPM O2 due to underlying COPD/asthma. In the ER she was noted to be pancytopenic. She denies any family or personal history of blood cancers. B12 notably < 400 in April 2023, she is not on supplementation for this. She denies any chest pain, worsening shortness of breath or dizziness. She does note generalized fatigue and shortness of breath however she does not think this is worse than her baseline. She denies any other blood loss such as hematemesis, hematuria, hemoptysis or epistaxis. 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 Discharge Exam see note Discharge Data Allergies Allergy/AdvReac Type Severity Reaction Status Date / Time sacubitril [From Entresto] AdvReac Severe hyperkalemi Verified 09/07/23 15:12 a valsartan [From Entresto] AdvReac Severe hyperkalemi Verified 09/07/23 15:12 a Consultations 09/07/23 15:27 ED Decision to Admit Stat 09/07/23 18:35 Consult Gastroenterology Routine 09/07/23 23:40 Consult Hematology Routine 09/21/23 12:35 Consult Palliative Care Routine Ordered Studies 09/07/23 13:06 CT abd pelvis wo con Stat 09/09/23 10:00 IR bone marrow bx & asp Routine 09/13/23 13:51 CT chest diagnostic wo con Routine CT lumbar spine wo con Routine CT thoracic spine wo con Routine Hospital Course (1) Acute on chronic respiratory failure with hypoxia and hypercapnia: 83 y/o with LEDA/OHS, COPD, CHF admitted with acute on chronic hypoxic and hypercarbic respiratory failure, abdominal pain, rectal bleeding and pancytopenia acute component - decompensated CHF +/- ?pneumonia +/- COPD exacerbation -- all made worse by very inconsistent/limited use of CPAP or BIPAP during this admission she was treated early on for CAP with rocephin/levaquin for 7 days, with 10 days of prednisone for possible acute exacerbation of COPD, and was diuresed with IV lasix for acute on chronic diastolic heart failure. The past week she was as medically optimized as possible with respect to the reversible issues/exacerbations above - euvolemic, with no wheezing, and no evidence of infection. Overall Valeri failed to improve with respect to her respiratory status despite the acute treatments above and over two weeks' trial of nocturnal and PRN bipap, which was very uncomfortable for her and with which she could tolerate/cooperate poorly. PCO2 emili from 60s-70s during beginning part of her admission to 90s- 100 this past week. Valeri has been consistently clear that she would not want interventions like intubation, ventilator, trach for example. but NIV has been ineffective and difficult for her to bear. Consulted palliative care Dr. Penn who met with Valeri and her daughter Yaritza on 09/22, which was one of Valeri's best days with respect to her mental and respiratory status this entire admission: "Valeri prefers to be at home but currently too frail and weak to be at home alone without significantly increased amount of caregiver support which will take time to arrange. Prefers discharge to SNF for trial of rehab with palliative focus of care and eventual goal of return home with increased family/caregiver/hospice support, if she worsens however, transition to end of life care only, no escalation of care / return to hospital (excepting for uncontrollable symptoms) - I filled out POLST form with her daughter." Friday 09/22 she also had a pretty good day. This weekend however, Valeri continued to worsen and was lethargic and poorly responsive AM of 09/24. After Bipap throughout the day she was awake but confused through the afternoon and evening, and remained much more dyspneic, requiring bipap on and off all day 09/25 for uncontrolled dyspnea, though also quite uncomfortable and restless on bipap. Her Aleks who also has dementia was able to visit with Valeri. I met with her three daughters afternoon 09/25 and after family meeting transitioned to comfort measures. She the following morning. (2) Metabolic encephalopathy: primarily related to worsening hypercapnia remains severely hypercarbic (100 on vbg) despite 2+ weeks trial of HS Bipap family reports memory is poor recently at baseline (3) Benzodiazepine withdrawal with delirium: although MAR from admission shows ativan 1mg HS "PRN" family confirmed she uses this nearly every night has been on ativan for some time possible benzodiazepine withdrawal - did improve s/p single dose IV ativan dose 09/19 and resumption of 0.5 mg po HS (4) Pancytopenia: Hematology/oncology Dr. Archer consulted this admission Reviewed bone marrow biopsy results with Dr. Archer 09/20 - consistent with MDS with complex cytogenetics. Manual blast count fortunately has been low at 2% Copper level wnl. Other w/u - B12 217 (notably < 400 in April), folate 14, ferritin, iron studies reviewed and ok, retic count 1.72, peripheral smear with rare blasts. TSH wnl. treated with daily vit B12 1000mcg and Venofer 200 mg daily x 3 doses as well as 1 unit PRBCs on 09/10. Per my discussion with Dr. Archer overall prognosis from this MDS is about a year, treatment would be low intensity as outpatient - 5d a week infusion - currently option is supportive care / transfusion as needed because she is too medically ill to tolerate targeted MDS treatment (5) Proctitis: Seen on admission CT abdomen and pelvis, unclear significance. Had loose stools this admission and C. diff and stool biofire negative. Completed 5d ceftriaxone and metronidazole because neutropenic. [employer] consulted; proctitis felt unlikely. 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 CT of t-spine and l-spine -- NO compression fractures, severe stenosis, etc. But OA/DJD of spine present. -treated with analgesics (7) Chronic systolic CHF (congestive heart failure): EF was 35-40% several years ago. Most recent echos show preserved EF. Thus, systolic CHF has resolved. Her CHF is on the basis of diastolic dysfunction. Treated for acute on chronic HfpEF this admission with IV lasix Euvolemic at this time, has been on oral diuretics this week. (8) Pericardial effusion: Known diagnosis. Repeat TTE this admission unchanged, only small pericardial effusion without tamponade physiology. (9) Pleural effusion: Small - no Rx needed other than diuresis (10) Permanent atrial fibrillation: stopped apixaban due to anemia and thrombocytopenia with recent rectal bleeding Continued metoprolol for rate control did not resume apixaban because of bleeding issues and palliative focus of care (11) Obstructive sleep apnea of adult: follows with [facility] [place] Pul last visit was 03/2023 with Ashkan LAZCANO baseline at home has home O2 and nocturnal CPAP (12) Type 2 diabetes mellitus: (13) Restless legs syndrome: Continue pramipexole (14) Chronic respiratory failure with hypoxia: Baseline 2-3 LPM O2 continuously (15) Acute blood loss anemia: caused by rectal bleeding, also with bone marrow failure transfused early in admission (16) Abdominal pain: improved with once daily PPI thus, gastritis and/or GERD likely the cause CT a/p with gallstones but no symptoms to suggest such (no pain with eating, no postprandial pain, etc) (17) Pulmonary hypertension: 2nd COPD, OHS/LEDA, etc (18) Pneumonia: treated for such with rocephin x 5 days earlier in the stay + 2 days of levaquin resolved clinically Total Time Total Time Spent Total Time Spent (In Minutes): I personally spent: 35 minutes today on clinical care activities including: reviewing chart notes and vital signs examining the patient meeting with the patient's family documentation, certificate Discharge Plan Discharge Items Patient Disposition: Other Date/Time: 09/26/23 10:25 Coding Level of Care Code 58808 INP/OBS DISCH >30 MIN Diagnoses Acute on chronic respiratory failure with hypoxia and hypercapnia J96.21; J96.22 Metabolic encephalopathy G93.41 Benzodiazepine withdrawal with delirium F13.931 Pancytopenia D61.818 Proctitis K62.89 Back pain of thoracolumbar region M54.50; M54.6 Chronic systolic CHF (congestive heart failure) I50.22 Pericardial effusion I31.39 Pleural effusion J90 Permanent atrial fibrillation I48.21 Obstructive sleep apnea of adult G47.33 Type 2 diabetes mellitus E11.9 Restless legs syndrome G25.81 Chronic respiratory failure with hypoxia J96.11 Acute blood loss anemia D62 Abdominal pain R10.9 Pulmonary hypertension I27.20 Pneumonia J18.9
== END 2023-09-26 14:25 | disposition expired | DRG 393 ==
LOC: ED 11:42 → EDINP 15:41 → SUATTDRO 15:41 → 2W 18:35 → 2S 09-11 21:05 → 3E 09-26 00:49